=== PATIENT | female | born 1935 | race Caucasian/White ===

== ENCOUNTER 2021-05-17 10:41 | Inpatient (IN) | payer MEDICARE, OTHER ==
[~2021-05-17] VITALS: Ht 165.1 cm; Wt 70.2 kg
[~2021-05-17 10:41] MED LIST: ADULT LOW DOSE81 MG PO; ALPHA LIPOIC A100 MG PO; AMITRIPTYLINE H10 MG PO; ATORVASTATIN CA20 MG PO; CALTRATE 600 +1 EAC1 PO; CELEXA40 MG PO; CENTRUM SILVER1 EAC3 PO; CITALOPRAM HBR40 MG PO; CLOPIDOGREL75 MG PO; FOSAMAX70 MG PO; GLUCOPHAGE1000 MG PO; INTRINSI B12-F1 EACH PO; LISINOPRIL-HCT1 EACH PO; LISINOPRIL20 MG PO; METAMUCIL660 GM PO; MOTRIN800 MG PO; NORCO 5-325 TA1 EACH; NORCO 5-325 TA1 EACH PO; PLAVIX75 MG PO; PRECOSE25 MG PO; PRESERVISION A1 EAC1 PO; PRESERVISION A1 EACH PO; SENNA8.6 MG; TROSPIUM CHLORI60 MG PO; [UNRECOGNIZED DRUG - OTHER]; [UNRECOGNIZED DRUG - OTHER]; [UNRECOGNIZED DRUG - OTHER]; [UNRECOGNIZED DRUG - OTHER]
[2021-05-17] MEDS ORDERED: CARBIDOPA-LEVO1 EAC1 PO (11:14)
--- NOTE | 2021-05-17 13:40 | NUR ---
85 YEAR OLD FEMALE PATIENT ADMITTED TO CCU VIA STRETCHER UNDER DR. BARBER WITH DX OF AFIB RVR. PATIENT WAS SEEN IN DR. MACK OFFICE THIS AM AND WAS FOUND TO BE IN AFIB WITH RVR AND WAS SENT TO ED TO BE EVALUATED. SHE RECIEVED 20 MG IV CARDIZEM FOLLOWED BY CARDIZEM GTT. UPON ADMIT TO CCU PATIENT IS ALERT, ORIENTED AND COOPERATIVE. DENIES PAIN OR NAUSEA. UPON TRANSFER FROM [facility] TO [facility], DOES GET VERY SHORT OF BREATH. ADMISSION PROCESS STARTED.
--- NOTE | 2021-05-17 14:30 | NUR ---
CARDIZEM 30 MG PO GIVEN, CARDIZEM GTT REMAINS AT 7.5 MG/HR. PATIENT STATES SHE IS VERY TIRED.
--- NOTE | 2021-05-17 14:50 | NUR ---
SYSTEM SUPPORT TECHNICIAN HERE TO DO ECHO AT BEDSIDE.
[2021-05-17] MEDS ORDERED: GLIMEPIRIDE2 MG PO (14:54)
[2021-05-17] MEDS ORDERED: METFORMIN HCL500 M1 PO (14:55)
--- NOTE | 2021-05-17 15:30 | NUR ---
ECHO COMPLETE. PATIENT IS RESTING.
--- NOTE | 2021-05-17 15:56 | NUR ---
UP TO COMMODE TO VOID, 75 ML OF ROSE URINE.
--- NOTE | 2021-05-17 16:00 | NUR ---
ASSESSMENT DONE. NO CHANGES. VERY TIRED.
--- NOTE | 2021-05-17 18:17 | NUR ---
PATIENT DAUGHTER HERE TO PATIENT.
--- NOTE | 2021-05-17 18:30 | NUR ---
TOOK FEW BITES OF DINNER. SOMEWHAT ANXIOUS. CARDIZEM GTT REMAINS AT 7.5 ML/HR.
[2021-05-17] MEDS ORDERED: PRESERVISION A1 EAC3 PO (18:35)
[2021-05-17] MEDS ORDERED: STOOL SOFTENER100 MG PO (18:36)
[2021-05-17] MEDS ORDERED: VITAMIN C500 M1 PO (18:36)
--- NOTE | 2021-05-17 18:36 | NUR ---
MED REC COMPLETE
--- NOTE | 2021-05-17 19:06 | NUR ---
RESTING, REPORT TO NEXT SHIFT.
--- NOTE | 2021-05-17 19:46 | NUR ---
SHIFT REPORT RECEIVED FROM JOHAN PETERSON. PT CALLED TO USE BATHROOM, UP WITH 1-PA TO BSC. VOIDED AND HAD SMALL AMOUNT OF INCONTINENCE IN ATTEND, NEW ATTENDS AND PERICARE PROVIDED. PT BACK IN BED. CARDIZEM DRIP INFUSING AT 7.5ML/HR. PT PROVIDED WITH WARM BLANKET PER REQUEST, DENIES FURTHER NEEDS AT THIS TIME. CALL LIGHT WITHIN REACH.
--- NOTE | 2021-05-17 19:54 | EKG ---
[facility] [address] [facility] [address] [facility] [place] [address] Signed Atrial fibrillation with rapid ventricular response Low voltage QRS Cannot rule out Anterior infarct (cited on or before 02-JAN-2019) Abnormal ECG When compared with ECG of 02-JAN-2019 08:44, Atrial fibrillation has replaced Sinus rhythm Vent. rate has increased BY 53 BPM Nonspecific T wave abnormality now evident in Inferior leads Confirmed by YENIFER BARBER MD ([id number]) on 05/17/2021 7:54:32 PM Electronically Signed By: YENIFER BARBER MD 05/17/211953 PATIENT NAME: CARIE COLE Electrocardiogram DATE OF : 33 PHYSICIAN: YENIFER BARBER MD REPORT #: [id number] REPORT IS CONFIDENTIAL AND NOT TO BE RELEASED WITHOUT AUTHORIZATION
--- NOTE | 2021-05-17 20:42 | NUR ---
ASSESSMENT COMPLETED. PT IS ALERT/ORIENTED, DENIES PAIN. LUNGS CLEAR, DIM IN BASES, 2L O2 VIA NC IN PLACE. PT REPORTS SOB AT REST. HR IRREGULAR, CARDIZEM DRIP CONTINUES AT 7.5MG/HR, PO CARDIZEM GIVEN. BOWEL TONES ACTIVE, DENIES NAUSEA. SKIN GROSSLY INTACT WITHOUT EDEMA. IV SITE INTACT, PATENT, BLOOD RETURN PRESENT. PT PERFORMED OWN ORAL CARE. CB, NO SLIDING SCALE COVERAGE REQUIRED. PT DENIES FURTHER NEEDS, CALL LIGHT WITHIN REACH.
--- NOTE | 2021-05-17 21:07 | NUR ---
PT CALLED, FEELING NAUSEATED. EMESIS BAG PROVIDED AND PT HAD ~50ML BILE COLORED EMESIS. DR. BARBER CALLED AND ORDER RECEIVED FOR PRN ZOFRAN, GIVEN AT THIS TIME. PT RESTING ON LEFT SIDE AT THIS TIME.
--- NOTE | 2021-05-17 21:16 | NUR ---
OXYGEN TITRATED TO 4L FOR SPO2 86-88%.
--- NOTE | 2021-05-17 21:24 | NUR ---
TITRATED OXYGEN TO 6L FOR SPO2: 86%.
--- NOTE | 2021-05-17 21:40 | NUR ---
PT CALLED TO GET UP TO BATHROOM, VOIDED 100ML AND SMALL INCONTINENCE IN ATTENDS, NEW PAIR AND PERICARE PROVIDED. CARDIZEM DRIP TITRATED TO 10MG/HR FOR HR IN 110'S, UP TO 130 WITH ACTIVITY. OXYGEN REMAINS AT 6L, SPO2:89-92%.
--- NOTE | 2021-05-17 22:00 | NUR ---
PT HAD ANOTHER EPISODE OF EMESIS, 200ML BILE-COLORED. DR. BARBER NOTIFIED AND ORDER RECEIVED FOR ONE TIME DOSE OF PHENERGAN AND TO START IV FLUIDS. NEW 20G IV PLACED IN RIGHT FOREARM ON FIRST ATTEMPT, PT TOLERATED WELL. OXYGEN SWITCHED TO OXYMASK AND TITRATED TO 4L.
--- NOTE | 2021-05-17 22:32 | NUR ---
CARDIZEM DRIP TITRATED TO 12.5MG/HR FOR HR IN 110'S. PT APPEARS TO BE RESTING MORE COMFORTABLY. 4L O2 VIA OXYMASK IN PLACE.
--- NOTE | 2021-05-17 23:02 | NUR ---
CARDIZEM DRIP TITRATED TO 15MG/HR FOR HR 110-120. SPO2 INCREASED TO 5L OXYMASK FOR SPO2 86%.
--- NOTE | 2021-05-18 00:12 | NUR ---
ASSESSMENT COMPLETED. PT RESTING, WAKES EASILY WHEN SPOKEN TO. OXYGEN REMAINS AT 5L OXYMASK. PT DENIES PAIN OR NAUSEA. LUNGS REMAIN DIM IN BASES. HR IRREGULAR, RATE 110'S, TITRATED CARDIZEM DRIP TO 17.5MG/HR AND HUNG NEW BAG. IV SITES INTACT AND PATENT WITH BLOOD RETURN PRESENT IN BOTH. LOW GRADE TEMP OF 99.1, WILL MONITOR. PT DENIES NEEDS, CALL LIGHT WITHIN REACH.
--- NOTE | 2021-05-18 00:58 | NUR ---
CALL LIGHT ANSWERED, PT UP TO BSC WITH 1-PA TO VOID. PERICARE PROVIDED AND PT RETURNED TO BED. HR BETTER CONTROLLED WITH ACTIVITY AT THIS TIME, HR 110'S WITH ACTIVITY AND 95-105 AT REST. PT PROVIDED WITH FRESH WATER, DENIES FURTHER NEEDS AT THIS TIME.
--- NOTE | 2021-05-18 02:18 | NUR ---
PT SLEEPING, WOKE EASILY WHEN SPOKEN TO, SCHEDULED PO CARDIZEM GIVEN AND DRIP TITRATED TO 15MG/HR FOR HR 85-90'S. PT DENIES FURTHER NEEDS.
--- NOTE | 2021-05-18 04:05 | NUR ---
CALL LIGHT ANSWERED, PT UP TO BSC WITH 1-PA TO VOID. PERICARE AND NEW ATTENDS PROVIDED, PT BACK TO BED. ASSESSMENT COMPLETED. TEMP NOW 97.9. PT CONTINUES TO DENY PAIN OR NAUSEA. LUNGS REMAIN CLEAR/DIM WITH 5L O2 IN PLACE. CARDIZEM DRIP TITRATED TO 12.5MG/HR FOR HR 75-80'S. NO OTHER CHANGES FROM PREVIOUS ASSESSMENT. PT DENIES NEEDS, CALL LIGHT WITHIN REACH.
--- NOTE | 2021-05-18 04:30 | NUR ---
CARDIZEM DRIP TITRATED TO 10MG/HR FOR HR IN 70's.
--- NOTE | 2021-05-18 05:06 | NUR ---
CARDIZEM DRIP TITRATED TO 7.5MG/HR FOR HR IN 70'S. HYDROLOGY TEACHER IN ROOM AT THIS TIME FOR MORNING LABS.
--- NOTE | 2021-05-18 06:15 | NUR ---
CARDIZEM DRIP TITRATED TO 5MG/HR FOR HR 60-70'S.
--- NOTE | 2021-05-18 07:30 | NUR ---
REPORT RECIEVED BY DAY SHIFT RN, CARE OF PT ASSUMED AT THIS TIME. PT RESTING IN BED, DILTIAZEM DRIP INFUSING. CALL LIGHT WITHIN REACH. WILL CONTINUE TO MONITOR.
--- NOTE | 2021-05-18 08:30 | NUR ---
Pt assisted with 1PA to BSC to void. Pt reports mild SOB with exertion, HR into 110's, recovers with 3L via oxymask once back to bed, SPO2 94%. Pt has no further needs at this time, call light in reach.
--- NOTE | 2021-05-18 08:41 | NUR ---
ASSESSMENT COMPLETED. PT UP TO BATHROOM. HEART RATE IN THE 110S WITH EXERTION. PT FELT SHORT OF BREATH BUT RECOVERED WELL ONCE IN BED.
--- NOTE | 2021-05-18 08:55 | NUR ---
Scheduled medications administered, pt educated regarding medication dosages and indications. Daughter at bedside, engaged in care and attentive to patient. Pt able to swallow PO meds without difficulty. Has no other needs at this time, breakfast provided.
--- NOTE | 2021-05-18 10:50 | NUR ---
UPDATED DR BARBER ON PTS CONDITION. PLAN TO KEEP PT ON DILTIAZEM DRIP UNTIL 1400, THEN ATTEMPT TO TITRATE PT OFF. PT UPDATED ON PLAN OF CARE
--- NOTE | 2021-05-18 11:27 | NUR ---
1PA to BS to void, pt transfers to chair after this with 1PA. HR remains in 90's-108 with this exertion, SPO2 remains stable at 90-95%. Assessment complete. Pt orders lunch, agrees to sit in chair "for now" and educated regarding exercise tolerance, oxygenation, etc. Pt has no other needs, fresh water provided and new bag IVF hung.
--- NOTE | 2021-05-18 12:14 | NUR ---
CBG checked, 102, no insulin provided at this time. Pt remains sitting up in chair, lunch provided. Daughter at bedside engaged in care. Pt states no needs at this time, VSS, cardizem gtt continued at 5mg/hr.
--- NOTE | 2021-05-18 13:04 | NUR ---
PT AMBULATED TO THE BATHROOM. HEART RATE REMAINED WNL WITH AMBULATION. PT NOW BACK IN BED, RESTING HEART RATE 80-90 IN AN AFIB RHYTHM. SPO2 = 93% ON ROOM AIR. DILTIAZEM DRIP PLACED ON STANDBY AT THIS TIME. CALL LIGHT WITHIN REACH. WILL CONTINUE TO CLOSELY MONITOR HR AND SPO2.
--- NOTE | 2021-05-18 14:00 | NUR ---
Updated by Rn pt new diagnosed AFib. Will see tomorrow.
--- NOTE | 2021-05-18 14:30 | NUR ---
PT'S HEART RATE REMAINS RATE CONTROLLED AT 70-90 BPM, IN AN AFIB RHYTHM. PT ASLEEP, SPO2 =97% ON 3 L OM. CALL LIGHT WITHIN REACH. NO FURTHER NEEDS AT THIS TIME.
--- NOTE | 2021-05-18 16:45 | NUR ---
Pt ambulates to BR with 1PA, HR remains in 80's-90's with mild SOB with exertion. Pt back to chair, assessment complete. Shower cap and warm washcloths provided, assisted patient with hygiene. Daughter at bedside. Updated both patient and daughter on plan of care for imaging, both agreeable. Pt afebrile, VSS, A+O with no needs at this time.
--- NOTE | 2021-05-18 17:23 | NUR ---
PT TRANSPORTED VIA WHEELCHAIR TO CT AT THIS TIME. PT TRANSPORTED WITH SALES OPERATIONS AND RN. ON TOOL GRINDER SET UP OPERATOR GEAR AND 3 L OM FOR TRANSPORT.
--- NOTE | 2021-05-18 17:40 | NUR ---
Pt returns from CT with this RN, scheduled medications administered, CBG within parameters, no insulin provided. Dinner provided. pt resting in bed with no needs, on 3L O2 via oxymask, spo2 96%. No needs at this time. Call light in reach.
--- NOTE | 2021-05-18 18:05 | NUR ---
IV pump alarming, error resolved, pump cleared, pt has no needs.
--- NOTE | 2021-05-18 18:37 | NUR ---
PT AMBULATED TO BATHROOM. HEART RATE IN THE 110'S WITH EXERTION. PT NOW BACK IN BED, HR IN THE 90S. DAUGHTER REMAINS AT BEDSIDE. CALL LIGHT WITHIN REACH. NO FURTHER NEEDS AT THIS TIME.
--- NOTE | 2021-05-18 20:50 | NUR ---
SHIFT REPORT RECEIVED FROM JOHAN BONILLA. ASSESSMENT COMPLETED. PT IS ALERT/ORIENTED, DENIES PAIN. LUNGS CLEAR, DIM IN BASES, 3L VIA OXYMASK IN PLACE. HR IRREGULAR. BOWEL TONES ACTIVE, DENIES NAUSEA. SKIN GROSSLY INTACT WITHOUT EDEMA. IV SITES INTACT AND PATENT. PT AMBULATED TO BATHROOM TO VOID, HR 110'S WITH ACTIVITY. PT NOW BACK TO BED, HAS PERFORMED ORAL CARE. DENIES FURTHER NEEDS AT THIS TIME, CALL LIGHT WITHIN REACH.
--- NOTE | 2021-05-18 21:55 | NUR ---
CALL LIGHT ANSWERED, PT UP TO BATHROOM WITH 1-PA TO VOID, NEW ATTENDS PROVIDED FOR URINE INCONTINENCE. PT BACK TO BED, DENIES NEEDS. HR WITH ACTIVITY INCREASED TO 110-120, NOW 100-110 AT REST.
--- NOTE | 2021-05-18 23:11 | NUR ---
PATIENT UP TO VOID. OFFERED BSC, PATIENT PREFERS BATHROOM. ASSISTED INTO BATHROOM. PATIENT REQUIRES 1PA TO AMBULATE AND IS SLIGHTLY UNSTEADY. PATIENT VOIDED 150 MLS CLEAR URINE AND RETURNED TO BED. SLIGHTLY SOB WITH ACTIVITY AND O2 SATS 85% ON ROOM AIR. 3L OXY MASK IN PLACE. CALL LIGHT IN REACH.
--- NOTE | 2021-05-19 00:09 | NUR ---
PT SLEEPING, POSITIONED ON RIGHT SIDE. NO APPARENT DISTRESS. RESPIRATIONS EVEN AND UNLABORED, RR:22-24, 3L VIA OXYMASK IN PLACE. HR:95-115. WILL ALLOW FOR REST AND CONTINUE TO MONITOR.
--- NOTE | 2021-05-19 00:32 | NUR ---
RESTARTED CARDIZEM DRIP AT 5MG/HR FOR RESTING HR 120'S, INCREASING TO 130-140'S WITH ACTIVITY. PT UP TO BSC WITH 1-PA TO VOID, NEW ATTENDS AND PERICARE PROVIDED. LUNGS CLEAR, 3L O2 IN PLACE. NO OTHER CHANGES FROM PREVIOUS ASSESSMENT.
--- NOTE | 2021-05-19 00:48 | NUR ---
CARDIZEM DRIP TITRATED TO 10 MG/HR FOR HR 115. BP STABLE. PT RESTING IN BED, RESTING COMFORTABLY.
--- NOTE | 2021-05-19 01:04 | NUR ---
CARDIZEM DRIP TITRATED TO 15MG/HR FOR HR 115 AT REST.
--- NOTE | 2021-05-19 01:42 | NUR ---
CALL LIGHT ANSWERED, PT UP TO BSC WITH 1-PA TO VOID. PERICARE AND NEW ATTENDS PROVIDED. HR UP TO 130 WITH ACTIVITY, NOW 95-110 AT REST. CARDIZEM REMAINS AT 15MG/HR.
--- NOTE | 2021-05-19 02:50 | NUR ---
PT DESATURATED TO 85%, INCREASED OXYMASK TO 5L. HR:93-105 ON 15MG/HR OF CARDIZEM. PT SLEEPING, NO APPARENT DISTRESS.
--- NOTE | 2021-05-19 03:48 | NUR ---
CALL LIGHT ANSWERED, 1-PA TO C TO VOID. ASSESSMENT COMPLETED, UNCHANGED FROM PREVIOUS. CARDIZEM CONTINUES AT15 MG/HR. HR 90-100 AT REST, UP TO 110'S WITH ACTIVITY. INCREASED WORK OF BREATHING WITH ACTIVITY WELL. PT DENIES FURTHER NEEDS, CALL LIGHT WITHIN REACH.
--- NOTE | 2021-05-19 04:43 | NUR ---
CARDIZEM DRIP TITRATED TO 10MG/HR FOR HR 85-90'S.
--- NOTE | 2021-05-19 07:01 | NUR ---
CALL LIGHT ANSWERED, UP TO BSC WITH 1-PA TO VOID, PERICARE AND NEW ATTENDS PROVIDED. PT BACK TO BED, NO FURTHER REQUESTS.
--- NOTE | 2021-05-19 07:30 | NUR ---
PATIENT SHIFT REPORT RECIEVED FROM [facility]AIL [facility]ARMAC[facility] MERCHANDISER RN. PATIENT RESTING COMFORTABLY AT THIS TIME. FORTINO RN WILL BE TAKING CARE OF THIS PATIENT WITH THIS RN. CALL LIGHT IN REACH. WILL CONTINUE TO CLOSELY MONITOR.
--- NOTE | 2021-05-19 08:00 | NUR ---
PATIENT SHIFT REPORT RECIEVED. PATIENT REPORT GIVEN FROM JOHAN MORALEZ. PATIENT IS AWAKE IN BED. BREAKFAST ORDERED. PATIENT DENIES ANY NEEDS AT THIS TIME. CALL LIGHT WITHIN REACH.
--- NOTE | 2021-05-19 10:15 | NUR ---
PATIENT ASSESSMENT COMPLETE. MEDICATIONS GIVEN. CARDIZEM DRIP TITRATED FROM 10MG/HR TO 5MG/HR. PATIENT RATE CONTROLLED 90-100 BPM AT THIS TIME. PATIENT IS ON 5 LITERS OXY MASK AT THIS TIME. BREATHING DOES NOT APPEAR LABORED AND IS NOT IN ACUTE DISTRESS AT THIS TIME. LUNG SOUNDS ARE CLEAR. PATIENT STATES "I HAVE NOT HAD A BOWEL MOVEMENT SINCE SUNDAY" BOWEL SOUNDS ARE ACTIVE AND WILL CONTINUE TO MONITOR AT THIS TIME. PATIENT AND DAUGHTER ARE UPDATED WITH THE PLAN OF CARE AT THIS TIME. NO FURHTER QUESTIONS NOTED. CALL LIGHT WITHIN REACH AND NO FURTHER NEEDS AT THIS TIME.
--- NOTE | 2021-05-19 12:30 | NUR ---
PATIENT ASSESSMENT COMPLETE. PATIENT BLOOD SUGAR WAS 145. PATIENT REFUSED INSULIN STATING "145 IS PERFECTLY NORMAL FOR ME." PATIENT HEART RATE CONTROLLED 80-100'S. PATIENT IS REQUIRING FOUR LITERS OF OXYGEN AT THIS TIME. THE PATIENT DOES NOT APPEAR TO BE IN DISTRESS. PATIENT HAD A BOWEL MOVEMENT. PLAN OF CARE UPDATED AT THIS TIME. DAUGHTER PRESENT IN ROOM. PATIENT BACK TO BED RESTING AT THIS TIME. CALL LIGHT WITHIN REACH. NO FUTHER NEEDS AT THIS TIME.
--- NOTE | 2021-05-19 12:55 | NUR ---
PATIENTS DAUGHTER VOICED MULTIPLE CONCERNS WITH DRY CLEANER. THIS RN IN TO ANSWERE QUESTIONS. PATIENTS DAUGHTER APPEARS FRUSTRATED. THIS RN REVIEWED PLAN OF CARE AGAIN WITH PATIENT AND HER DAUGHTER. UPDATED TO WHY WE USE INSULIN IN THE HOSPITAL SETTING. PATIENTS DAUGHTER ALSO QUESTIONED WHY HER MEDICATION WASNT RUNNING IN HER IV. THIS RN UPDATED BOTH OF THEM AT 11 WHEN MEDICATION STOPPED AND EDUCATED THAT HER HR WAS CONTROLLED SO I WOULD STOP THE IV MEDICATION AT THIS TIME. PATIENT WAS GIVEN ORAL MEDICATION EARLIER THIS AM. PATIENTS DAUGHTER ALSO ASKED AGAIN ABOUT HER IV IN HER WRITST. SITE APPEARS TO LOOK BETTER, BUT IS STILL PAINFUL. EDUCATED PATIENT WE COULD REMOVE THE IV AND WILL START ANOTHER ONE IF NEEDED. PATIENT AND DAUGHTER ARE GOOD WITH THIS PLAN OF CARE. WILL CONTINUE TO CLOSELY MONITOR.
--- NOTE | 2021-05-19 13:15 | NUR ---
RN indicated pt had been difficult and suggested I check in. Pt was up and sitting in chair eating lunch. Daughter was in room. Pt and expressed satisfaction at care, and pt stated she was getting better every day. Said she had been sitting up for some time and would like to lie back down and "take a nap." Prayed for patience and strength as well as continued healing. Informed RN of pt desire to return to bed.
--- NOTE | 2021-05-19 13:45 | NUR ---
Pt resides at [facility] care in their duplexes. Pt resides alone. Daughter is present for my visit. Pt states she has been havig more difficulty walking from her Duplex to the main building for meals This is upsetting to daughter as she feels pt needs higher level of care and pt is not interested and plans on staying in her apartment. Pt has new onset of afib and is using 02 today. She uses a can to walk but no other DME. Daughter states she loaned pt a walker, pt states she does not use. Pt states she is ok financially and drives her own car. Pt plans on return to her apartment when discharged. We did discuss she may want to notify [facility] she is interested when a 2 bed room apartment comes open in the main building. Daughter states pt has declined when these have opened in the past.
--- NOTE | 2021-05-19 17:00 | NUR ---
PATIENT ASSESSMENT COMPLETE. PATIENT MEDICATIONS GIVEN. HEART RATE CONTROLED AT THIS TIME IN THE 80-100 BPM. PATIENT WAS TITRATED FROM 6 LITERS OF O2 TO 2 LITERS. PATIENT DOES NOT APPEAR TO BE IN DISTRESS AT THIS TIME. PATIENT HAS ORDERS TO GO TO THE MEDICAL SURGICAL FLOOR. THE PATIENT AND DAUGTHER ARE UPDATED ON THE PLAN OF CARE. NO QUESTIONS AT THIS TIME. CALL LIGHT WITHIN REACH NO FUTHER NEEDS.
--- NOTE | 2021-05-19 18:15 | NUR ---
REPORT GIVEN TO ELOISE PRADO. ALL QUESTIONS ANSWERED. UPDATED ON PLAN OF CARE. PATIENTS DAUGHTER AT THE BEDSIDE AND WAS ALSO UPDATED ON PLAN OF CARE. WILL CONTINUE TO CLOSELY MONITOR.
--- NOTE | 2021-05-19 18:41 | NUR ---
PATIENT WAS TRANSFERRED TO THE MEDICAL SURGICAL FLOOR. NURSE RECIEVING PATIENT AT BEDSIDE. UPDATED FAMILY AND PATIENT WITH PLAN OF CARE AT THIS TIME. NO QUESTIONS AT THIS TIME.
--- NOTE | 2021-05-19 18:42 | NUR ---
Report from JOHAN Alcantar. Patient arrives in bed with daughter at side and JOHAN Alcantar. Vital signs obtained. Repositioned in bed. Head of bed elevated and supper provided. Heartrate in low 100's at this time. Remains on O2 per NC. States she feels short of breath, but respirations appear unlabored at this time. Call light in reach, bed rails up X2.
--- NOTE | 2021-05-19 19:05 | NUR ---
SHIFT REPORT RECEIVED FROM ELOISE PRADO. PT RESTING IN BED, OXYMASK @ 2.5L. DAUGHTER IN ROOM.
--- NOTE | 2021-05-19 20:57 | NUR ---
UPDATED ON HR CONSISTENTLY 120-140'S. TO PUT IN NEW ORDERS. REPORTED TO FLYNN PRADO.
--- NOTE | 2021-05-19 21:37 | NUR ---
ASSESSMENT, VS AND I&O COMPLETED. AFIB HR RANGING UP TO 140, MD AWARE AND MEDS ORDERED AND PROVIDED. LUNGS CLEAR IN LOWER LOBES AND LUEFT UPPER LOBE, EXPIRATORY WHEEZING IN RIGHT UPPER LOBE. HEART TONES IRREGULAR. CMS INTACT IN UPPER EXTREMITIES AND CHRONIC NUMBNESS AND TINGLING IN FEET WITH GOOD MOTOR AND PULSES. ABD SOFT, NONTENDER, BOWEL TONES ACTIVE. SKIN WARM, DRY AND APPROPRIATE COLOR EXCEPT REDNESS AND SLIGHT SWELLING IN LEFT FOREARM WHERE A DCd IV WAS EARLIER TODAY. PT ON 2L NC. DAUGHTER IN ROOM. NO OTHER NEEDS AT THIS TIME. CALL LIGHT IN REACH.
--- NOTE | 2021-05-19 22:15 | NUR ---
IN TO ASSIST PT TO THE TOILET, 1PA WITH HANDS OUT TO STABLIZE PT, PT BACK TO BED, BED ALARM ON
--- NOTE | 2021-05-19 23:08 | NUR ---
PT TELE AFIB @ 130 WHILE LAYING IN BED. WHEN PT IS UP TO BATHROOM HER HR STAYS IN THE 160-170 RANGE AND RETURNS TO 120-130 AFTER SEVERAL MINUTES. VS COMPLETED. CALLED BY PHONE. STATES HE WILL PUT IN MED ORDERS.
--- NOTE | 2021-05-19 23:27 | NUR ---
SCHEDULED MED PROVIDED. OXYMASK @ 2L, SPO2 96%. NO OTHER NEEDS. CALL LIGHT IN REACH.
--- NOTE | 2021-05-19 23:50 | NUR ---
IN TO GET PT UP TO THE TOILET, VITALS DONE AT THIS TIME, NO FURTHER NEEDS
--- NOTE | 2021-05-20 00:32 | NUR ---
PT RESTING IN BED. TELE HR AFIB @ 105. NO OTHER NEEDS AT THIS TIME. CALL LIGHT IN REACH.
--- NOTE | 2021-05-20 00:50 | NUR ---
PT UP TO THE TOILET, PT DECLINING TO USE THE BSC AFTER OFFERING IT TO PT, EXPLAINING TO PT THE Renetta MARK RN INFORMED
--- NOTE | 2021-05-20 02:20 | NUR ---
IN TO ASSIST PT TO THE TOILET, AGAIN ENCORAGED PT TO TRY A BSC, PT PREFERS TO GO ALL THE WAY TO THE TOILET, PT BACK IN BED, FRESH ATTENDS IN PLACE, NO FURTHER NEEDS AT THIS TIME
--- NOTE | 2021-05-20 03:00 | NUR ---
IN TO GET VITALS, FRESH ICE WATER GIVEN, NO FURTHER NEEDS AT THIS TIME
--- NOTE | 2021-05-20 03:12 | NUR ---
SCHEDULED MED PROVIDED. TELE AFIB @ 111. ICE WATER PROVIDED. OXYMASK @ 2L. NO OTHER NEEDS. CALL LIGHT IN REACH.
--- NOTE | 2021-05-20 03:35 | NUR ---
IN TO GET PT UP TO THE TOILET, PT WAS INCONT OF BM, NEW ATTENDS ON, NEW LISET PAD, PT CLEANED UP AND BACK TO BED, NO FURTHER NEEDS AT THIS TIME
--- NOTE | 2021-05-20 03:45 | NUR ---
PT RESTING IN BED. TELE AFIB @ 114. NC @ 2L. CALL LIGHT IN REACH.
--- NOTE | 2021-05-20 05:00 | NUR ---
IN TO ASSIST PT TO THE TOILET, INCONT AT THIS TIME, NEW ATTENDS AND LISET PAD IN PLACE AT THIS TIME, PT BACK TO BED, PROVIDED A SNACK, NO FURTHER NEEDS AT THIS TIME
--- NOTE | 2021-05-20 05:25 | NUR ---
ASSESSMENT COMPLETED. GCS 15, A&O X4. LUNGS CLEAR IN UPPER LOBES AND DIMINISHED IN LOWER LOBES. ABD SOFT, NONTENDER, BOWEL TONES ACTIVE. IV CDI. CMS UNCHANGED. NO OTHER NEEDS. CALL LIGHT IN REACH.
--- NOTE | 2021-05-20 06:07 | NUR ---
VS COMPLETED. SCHEDULED MED PROVIDED. TELE AFIB @ 105. COFFEE PROVIDED. OXYMASK @ 2L. NO OTHER NEEDS. CALL LIGHT IN REACH.
--- NOTE | 2021-05-20 08:30 | NUR ---
Per jace with Dr. Díaz, he would like pt to ambulate today to check for toleration. Pt may be able to dc today or tomorrow.
--- NOTE | 2021-05-20 09:09 | NUR ---
IN ROOM FOR MEDICATION PASS. PT SITTING IN BED WITH DAUGHTER AT BEDSIDE. 2L NC IN PLACE. VITALS TAKEN ASND DOCUMENTED. SPO2 AT 94% ON 2L NC. TITRATED PT TO RA. SPO2 MAINTAINED FROM 90-95% ON RA AFTER 5 MINUTES ON RA. LEFT PT ON RA AND WILL CONTINUE TO MONITOR. DISCUSSED PLAN TO AMBULATE TODAY. PT AGREEABLE.
--- NOTE | 2021-05-20 10:29 | NUR ---
PT UP IN RECLINER, NO DISTRESS, I.S. AT CHAIR SIDE, PT DEMONSTRATED...EDUCATION GIVEN ON IMPORTANCE. DAUGHTER AT BEDSIDE. NO PAIN TO REPORT, LUNCH ORDERED.
--- NOTE | 2021-05-20 11:42 | NUR ---
PT UP AMBULATED IN MEI 50 FEET, ON ROOM AIR, MAINTAINED 92-94% OXYGEN SATURATIONS, HEART RATE MAINTAINED CONTROLLED AT 70'S AND 80'S BEATS PER MINUTE, HIGHEST RECORDED RATE WAS 91 BEATS PER MINUTE.
--- NOTE | 2021-05-20 12:34 | NUR ---
PT IN BED RESTING AFTER LUNCH, HER EYES OPEN UPON THIS RN ENTERING THE ROOM. LOOKED AT ME THEN, CLOSED HER EYES AGAIN, DAUGHTER UMA IS SITTIN BETY RECLINER IN ROOM. THIS RN WAS GIVEN MESSAGE TO CALL NOREEN, HOWEVER SHE IN NOT LISTED A PERSON OF CONTACT. GAVE MESSAGE TO ROYCE AND SHE SAID SHE WOULD CALL AND UPDATE HER.
--- NOTE | 2021-05-20 16:00 | NUR ---
NOtified pt has requested Dr. Olivo as her pcp, admitting notified and requested they change DrJennifer in chart.
--- NOTE | 2021-05-20 16:00 | NUR ---
PT UP TO BATHROOM FOR SHOWER WITH MILL ROLL OPERATOR ASSIST
--- NOTE | 2021-05-20 18:03 | NUR ---
PT HAS BEEN UP TO CHAIR FOR MEALS, HER DAUGHTER HAS BEEN IN TO VISIT MOST OF SHIFT, IS ESTABLISHING PCP. PT HAS NOT REPORTED ANY PAIN. PLAN. SHE CARDIAC MEDICATIONS ADJUSTED. PT WALKED IN HALLS WITH GOOD RATE CONTROL HR AT HIGHEST WAS 89 BMP. PT TOLERATED WELL. PT SHOWERED THIS AFTERNOON.
--- NOTE | 2021-05-20 19:05 | NUR ---
SHIFT REPORT RECEIVED FROM LEXA PRADO. PT UP IN CHAIR, ON RA. NO NEEDS AT THIS TIME. SAFETY EDUCATION PROVIDED CONCERNING USE OF CALL LIGHT. CALL LIGHT IN REACH.
--- NOTE | 2021-05-20 20:40 | NUR ---
ASSESSMENT, VS AND I&O COMPLETED. GCS 15, A&O X4. LUNGS CLEAR IN UPPER LOBES AND DIMINISHED IN LOWER LOBES. ABD SOFT, NONTENDER, BOWEL TONES ACTIVE. CMS INTACT EXCEPT NUMBNESS TO BOTTOM OF FEET, CHRONIC. IV WNL, CDI, WRAPPED WITH KERLIX, FLUSHED WELL. TEA PROVIDED. SCHEDULED MEDS PROVIDED. NO OTHER NEEDS. CALL LIGHT IN REACH.
--- NOTE | 2021-05-20 22:52 | NUR ---
PT CALLS TO USE BR. SBA FWW TO BR AND BACK TO BED. NO OTHER NEEDS. CALL LIGHT IN REACH.
--- NOTE | 2021-05-21 00:54 | NUR ---
PT CALLS TO USE BR. SBA FWW TO BR AND BACK TO BED. NO OTHER NEEDS AT THIS TIME. CALL LIGHT IN REACH, BED ALARM ON.
--- NOTE | 2021-05-21 02:15 | NUR ---
PT CALLS TO USE BR. FWW SBA TO BR AND BACK TO BED. TELE AFIB @ 90 DURING ACTIVITY. NO OTHER NEEDS. CALL LIGHT IN REACH.
--- NOTE | 2021-05-21 02:25 | NUR ---
TELE LEAD OFF, REPLACED. pt RESTING IN BED. NO REQUESTS. CALL LIGHT WITHIN REACH.
--- NOTE | 2021-05-21 04:00 | NUR ---
PT RESTING IN BED, EYES CLOSED. RR EVEN, UNLABORED. CALL LIGHT IN REACH, BED ALARM ON.
--- NOTE | 2021-05-21 06:11 | NUR ---
ASSESSMENT, VS AND I&O COMPLTED. PT UP TO BR AND BACK TO BED SBA, FWW. HR IS AFIB @ 93 WITH ACTIVITY. LUNGS CLEAR IN UPPER LOBES, DIMINISHED IN LOWER LOBES. PT DENIES SOB. IV WNL, CDI. COFFEE AND ICE WATER PROVIDED. NO OTHER NEEDS. CALL LIGHT IN REACH, BED ALARMS ON.
--- NOTE | 2021-05-21 08:35 | NUR ---
Scheduled medications, assessment complete. Pt transfers to bathroom with SBA and FWW. Heart rate irregular, pt states asymptomatic at this time. Back to bed and states no further needs. Daughter at bedside, attentive to patient. Pt updated on plan of care, agreeable at this time, call light in reach.
--- NOTE | 2021-05-21 10:47 | NUR ---
Patient got breakfast and ate some. Patient went to te bathroom and hand hygiene was encouraged. Vitals were done. Call light is in reach and there are no requests at this time.
--- NOTE | 2021-05-21 11:15 | NUR ---
Rounded on patient who is resting in bed with no needs at this time, daughter at bedside and attentive to patient. Pt on room air, A+O, no pain or SOB with rest. Call light in reach.
[2021-05-21] MEDS ORDERED: METOPROLOL SUC100 MG PO (11:57)
[2021-05-21] MEDS ORDERED: CARDIZEM LA360 MG PO (11:58)
[2021-05-21] MEDS ORDERED: WARFARIN SODIUM4 MG PO (11:58)
--- NOTE | 2021-05-21 13:30 | NUR ---
Warfarin administered per order. Discharge teaching provided in detail, medications and dosages, all questions answered and patient encouraged to call back with any questions, follow up appointments made and cards given to pt. Pt verbalizes understanding, has no needs at this time. Tele removed, IV removed WNL and site wrapped with coban.
--- NOTE | 2021-05-21 15:01 | NUR ---
Patient's INR at baseline = 1.12. She is starting on warfarin 4mg daily today. She [facility] appt [facility] 05/31/21 @ 6521. Extensive counseling by this pharmacist regarding warfarin, risks/benefits, the effect of diet on warfarin, etc. She was given the phone # to [facility] and was invited to call with any questions that may come up.
--- NOTE | 2021-05-21 15:10 | NUR ---
Pt discharged via wheelchair with all belongings in hand. Discharge teaching provided and all questions answered. VSS, A+O. IV site WNL. No further needs at this time.
[2021-06-07] MEDS ORDERED: GEMTESA75 MG PO ×2 (10:46→10:51)
== END 2021-05-21 15:10 | disposition home or self-care (01) | DRG 310 ==
LOC: ED 10:41 → CCU 10:43 → MS 05-19 18:30
PROVIDERS: ADMIT Internal Medicine; ATTEND Internal Medicine
DX: I48.91 Unspecified atrial fibrillation (principal); Z20.822 Contact with and (suspected) exposure to COVID-19; I10 Essential (primary) hypertension; E11.9 Type 2 diabetes mellitus without complications; E78.5 Hyperlipidemia, unspecified; I34.0 Nonrheumatic mitral (valve) insufficiency; G20 Parkinson's disease; M81.0 Age-related osteoporosis without current pathological fracture; F39 Unspecified mood [affective] disorder; Z88.1 Allergy status to other antibiotic agents; Z88.2 Allergy status to sulfonamides; Z86.73 Personal history of transient ischemic attack (TIA), and cerebral infarction without residual deficits; Z91.048 Other nonmedicinal substance allergy status; Z79.84 Long term (current) use of oral hypoglycemic drugs; Z79.02 Long term (current) use of antithrombotics/antiplatelets; Z79.899 Other long term (current) drug therapy; Z90.710 Acquired absence of both cervix and uterus; Z90.49 Acquired absence of other specified parts of digestive tract
CPT/HCPCS: 71045; 71260; 80048; 80053; 83735; 84443; 84484; 85025; 85610; 93005; 93010; 93306; J1650; J2405; J2550; J7121; Q9967; U0003

== ENCOUNTER 2023-05-12 09:48 | Inpatient (IN) | payer MEDICARE, OTHER ==
[~2023-05-12] VITALS: Ht 165.1 cm; Wt 75.6 kg
--- OUTSIDE RECORDS SUMMARY | ~2023-05-12 | XMS | Continuity of Care Document ---
Demographics + + + | Address | [address] | | | [place] [address] | + + + | Preferred Language | Unknown | + + + | Marital Status | | + + + | Jainism Affiliation | Unknown | + + + | Race | White | + + + | Ethnic Group | Not or | + + + Author + + + | Author | [facility] | + + + | Organization | [facility] | + + + | Address | [address] | | | [place] [address] | + + + | Phone | | + + + Care Team Providers + + + + | Care National Sales Manager Name | Role | Phone | + + + + Unavailable | Unavailable | + + + + Unavailable | Unavailable | + + + + Allergies and Intolerances + + + + + + | date | description | facility | reaction | severity | + + + + + + | (no date) | Bacitracin | [facility] | (no reaction) | (no severity) | [facility] | | | + + + + + + | (no date) | Mild | [facility] | (no reaction) | (no severity) | [facility] | | | + + + + + + | (no date) | Rash | [facility] | (no reaction) | (no severity) | [facility] | | | + + + + + + | (no date) | Bacitracin | [facility] | (no reaction[facility] | (no severity) | [facility] | | | + + + + + + | (no date) | Polymyxin b | [facility] | (no reaction) | (no severity) | [facility] | | | + + + + + + | (no date) | Vomiting | [facility] | (no reaction) | (no severity) | [facility] | | | + + + + + + | (no date) | Bacitracin | [facility] | (no reaction) | (no severity) | | [facility] | | | + + + + + + | (no date) | Polymyxin b | [facility] | (no reaction) | (no severity) | | [facility] | | | + + + + + + | (no date) | neomycin | [facility] | (no reaction) | (no severity) | | | sulfate | | | | + + + + + + | (no date) | Sulfa | [facility] | (no reaction) | (no severity) | | | (Sulfonamide | | | | | | Antibiotics) | | | | + + + + + + | (no date) | soap | [facility] | (no reaction) | (no severity) | + + + + + + | (no date) | bacitracin | [facility] | (no reaction) | (no severity) | + + + + + + | (no date) | polymyxin B | [facility] | (no reaction) | (no severity) | + + + + + + | (no date) | Polymyxin b | [facility] | (no reaction) | (no severity) | [facility] | | | + + + + + + Encounters No information. Functional Status No information. Immunizations No information. Medications + + + + | date | description | facility | + + + + | 2023-03-30 00:00 | [facility]oc[facility] | + + + + | 2023-03-30 00:00 | ALPHA LIPOIC ACID | [facility] | + + + + | 2023-03-30 00:00 | CALCIUM CARBONATE/VITAMIN | [facility] | | | D3 | | + + + + | 2023-03-30 00:00 | POTASSIUM CHLORIDE | [facility] | + + + + | 2023-03-30 00:00 | | [facility] | | | LISINOPRIL/HYDROCHLOROTHIAZ | | | | ALDO | | + + + + | 2023-03-30 00:00 | TORSEMIDE | [facility] | + + + + | 2023-03-30 00:00 | GLIMEPIRIDE | [facility] | + + + + | 2023-03-30 00:00 | FUROSEMIDE | [facility] | + + + + | 2023-03-30 00:00 | CITALOPRAM HYDROBROMIDE | [facility] | + + + + | 2023-03-30 00:00 | ASPIRIN | [facility] | + + + + | 2023-03-30 00:00 | CITALOPRAM HYDROBROMIDE | [facility] | + + + + | 2023-03-30 00:00 | CLOPIDOGREL BISULFATE | [facility] | + + + + | 2023-03-30 00:00 | SENNOSIDES | [facility] | + + + + | 2023-03-30 00:00 | SPIRONOLACTONE | [facility] | + + + + | 2023-03-30 00:00 | LISINOPRIL | [facility] | + + + + | 2023-03-30 00:00 | PIOGLITAZONE HCL | [facility] | + + + + | 2023-03-30 00:00 | ATORVASTATIN CALCIUM | [facility] | + + + + | 2023-03-30 00:00 | POTASSIUM CHLORIDE | [facility] | + + + + | 2023-03-30 00:00 | SITAGLIPTIN PHOSPHATE | [facility] | + + + + | 2023-03-30 00:00 | DILTIAZEM HCL | [facility] | + + + + | 2023-03-30 00:00 | DILTIAZEM HCL | [facility] | + + + + | 2023-03-30 00:00 | WARFARIN SODIUM | [facility] | + + + + | 2023-03-30 00:00 | TRAZODONE HCL | [facility] | + + + + | 2023-03-30 00:00 | AMITRIPTYLINE HCL | [facility] | + + + + | 2013-03-06 00:00 | HYDROCODONE | [facility] | | | BIT/ACETAMINOPHEN | | + + + + | 2013-03-13 00:00 | HYDROCODONE | [facility] | | | BIT/ACETAMINOPHEN | | + + + + | 2023-03-30 00:00 | HYDROCODONE | [facility] | | | BIT/ACETAMINOPHEN | | + + + + | 2023-03-30 00:00 | TROSPIUM CHLORIDE | [facility] | + + + + | 2023-03-30 00:00 | METFORMIN HCL | [facility] | + + + + | 2023-03-30 00:00 | POLYETHYLENE GLYCOL 3350 | [facility] | + + + + | 2023-03-30 00:00 | VIT A/VIT C/VIT | [facility] | | | E/ZINC/COPPER | | + + + + | 2023-03-30 00:00 | VIT A/VIT C/VIT | [facility] | | | E/ZINC/COPPER | | + + + + | 2023-03-30 00:00 | VIT B12/INTRINS FACT/FA | [facility] | | | CMB #2 | | + + + + Problems + + + + | date | description | facility | + + + + | 2019-01-06 00:00 | Overactive bladder | [facility] | + + + + | 2021-05-17 00:00 | Atrial fibrillation with | [facility] | | | rapid ventricular response | | + + + + | 2022-09-19 11:44 | TYPE 2 DIABETES MELLITUS | [facility] | | | WITHOUT COMPLICATIONS | | + + + + | 2022-09-19 11:44 | HYPERTENSIVE HEART DISEASE | [facility] | | | WITH HEART FAILURE | | + + + + | 2022-09-19 11:44 | UNSPECIFIED ATRIAL | [facility] | | | FIBRILLATION | | + + + + | 2022-09-19 11:44 | CHRONIC DIASTOLIC | [facility] | | | (CONGESTIVE) HEART FAILURE | | + + + + | 2022-09-19 11:44 | SHORTNESS OF BREATH | [facility] | + + + + | 2022-09-19 11:44 | SOLITARY PULMONARY NODULE | [facility] | + + + + | 2022-10-03 10:21 | UNSPECIFIED ATRIAL | [facility] | | | FIBRILLATION | | + + + + | 2022-10-03 10:21 | ENCOUNTER FOR THERAPEUTIC | [facility] | | | DRUG LEVEL MONITORING | | + + + + | 2022-10-03 10:21 | CASKET LINER (CURRENT) USE OF | [facility] | | | ANTICOAGULANTS | | + + + + | 2022-10-31 10:25 | UNSPECIFIED ATRIAL | [facility] | | | FIBRILLATION | | + + + + | 2022-10-31 10:25 | ENCOUNTER FOR THERAPEUTIC | [facility] | | | DRUG LEVEL MONITORING | | + + + + | 2022-10-31 10:25 | CORRECTION (CURRENT) USE OF | [facility] | | | ANTICOAGULANTS | | + + + + | 2022-10-31 12:24 | CHRONIC DIASTOLIC | [facility] | | | (CONGESTIVE) HEART ALBER | | + + + + | 2022-10-31 12:24 | SHORTNESS OF BREATH | [facility] | + + + + | 2022-12-12 10:35 | UNSPECIFIED ATRIAL | [facility] | | | FIBRILLATION | | + + + + | 2022-12-12 10:35 | ENCOUNTER FOR THERAPEUTIC | [facility] | | | DRUG LEVEL MONITORING | | + + + + | 2022-12-12 10:35 | CORRECTION (CURRENT) USE OF | [facility] | | | ANTICOAGULANTS | | + + + + | 2023-01-23 10:40 | TYPE 2 DIABETES MELLITUS | [facility] | | | WITHOUT COMPLICATIONS | | + + + + | 2023-01-23 10:40 | HYPERTENSIVE HEART DISEASE | [facility] | | | WITH HEART FAILURE | | + + + + | 2023-01-23 10:40 | 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 | | + + + + | 2023-01-23 10:40 | UNSPECIFIED ATRIAL | [facility] | | | FIBRILLATION | | + + + + | 2023-01-23 10:40 | HEART FAILURE, UNSPECIFIED | [facility] | | | | | + + + + | 2023-01-23 10:40 | ENCOUNTER FOR THERAPEUTIC | [facility] | | | DRUG LEVEL MONITORING | | + + + + | 2023-01-23 10:40 | CASKET LINER (CURRENT) USE OF | [facility] | | | ANTICOAGULANTS | | + + + + | 2023-03-06 10:30 | UNSPECIFIED ATRIAL | [facility] | | | FIBRILLATION | | + + + + | 2023-03-30 00:00 | Congestive heart failure | [facility] | + + + + | 2023-03-30 00:00 | Arthritis of left hip | [facility] | + + + + | 2023-03-30 00:00 | Lumbar radiculopathy | [facility] | + + + + | 2023-03-30 12:49 | TYPE 2 DIABETES MELLITUS | [facility] | | | WITHOUT COMPLICATIONS | | + + + + | 2023-03-30 12:49 | HYPERLIPIDEMIA, | [facility] | | | UNSPECIFIED | | + + + + | 2023-03-30 12:49 | HYPERTENSIVE HEART DISEASE | [facility] | | | WITH HEART FAILURE | | + + + + | 2023-03-30 12:49 | HEART FAILURE, UNSPECIFIED | [facility] | | | | | + + + + | 2023-03-30 12:49 | UNILATERAL PRIMARY | [facility] | | | OSTEOARTHRITIS, LEFT HIP | | + + + + | 2023-03-30 12:49 | RADICULOPATHY, LUMBAR | [facility] | | | REGION | | + + + + | 2023-03-30 12:49 | SHORTNESS OF BREATH | [facility] | + + + + | 2023-03-30 12:49 | CASKET LINER (CURRENT) USE OF | [facility] | | | ANTICOAGULANTS | | + + + + | 2023-03-30 12:49 | OTHER CORRECTION (CURRENT) | [facility] | | | DRUG THERAPY | | + + + + | 2023-03-30 12:49 | ALLERGY STATUS TO OTHER | [facility] | | | ANTIBIOTIC AGENTS STATUS | | + + + + | 2023-03-30 12:49 | ALLERGY STATUS TO | [facility] | | | SULFONAMIDES STATUS | | + + + + | 2023-03-30 12:49 | ALLERGY STATUS TO OTH | [facility] | | | DRUG/MEDS/BIOL SUBST STATUS | | | | | | + + + + | 2023-03-30 12:49 | OTHER NONMEDICINAL | [facility] | | | SUBSTANCE ALLERGY STATUS | | + + + + | 2023-04-13 13:00 | PULMONARY HYPERTENSION, | [facility] | | | UNSPECIFIED | | + + + + | 2023-04-13 13:00 | 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 | | + + + + | 2023-04-13 13:00 | 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 Results/Labs +--------+--------+ +---------+--------+---------+ | test | date | facility | value | unit | notes | +--------+--------+ +---------+--------+---------+ + + | Result panel 1 | + + + + + +-------+ + + | | 2023-03-30 | [facility] | 8.9 | (missing) | (missing) | | (unavailable | [facility] | | | + + + +-------+ + + + + | Result panel 2 | + + + + + +--------+ + + | | 2023-03-30 | [facility] | 62.8 | (missing) | (missing) | | (unavailable | [facility] | | | + + + +--------+ + + + + | Result panel 3 | + + + + + +--------+ + + | | 2023-03-30 | [facility] | 23.0 | (missing) | (missing) | | (unavailable | [facility] | | | + + + +--------+ + + + + | Result panel 4 | + + + + + +--------+ + + | | 2023-03-30 | [facility] | 12.4 | (missing) | (missing) | | (unavailable | [facility] | | | + + + +--------+ + + + + | Result panel 5 | + + + + + +-------+ + + | | 2023-03-30 | [facility] | 0.7 | (missing) | (missing) | | (unavailable | [facility] | | | + + + +-------+ + + + + | Result panel 6 | + + + + + +-------+ + + | | 2023-03-30 | [facility] | 1.1 | (missing) | (missing) | | (unavailable | [facility] | | | + + + +-------+ + + + + | Result panel 7 | + + + + + +--------+ + + | | 2023-03-30 | [facility] | 26.6 | (missing) | (missing) | | (unavailable | [facility] | | | + + + +--------+ + + + + | Result panel 8 | + + + + + +--------+ + + | | 2023-03-30 | [facility] | 2.55 | (missing) | (missing) | | (unavailable | [facility] | | | + + + +--------+ + + + + | Result panel 9 | + + + + + +--------+ + + | | 2023-03-30 | [facility] | 4.43 | (missing) | (missing) | | (unavailable | [facility] | | | + + + +--------+ + + + + | Result panel 10 | + + + + + +--------+ + + | | 2023-03-30 | [facility] | 13.2 | (missing) | (missing) | | (unavailable | [facility] | | | + + + +--------+ + + + + | Result panel 11 | + + + + + +-------+---------+ + | | 2023-03-30 | [facility] | 225 | mg/dL | (missing) | | (unavailable | [facility] | | | + + + +-------+---------+ + + + | Result panel 12 | + + + + + +------+---------+ + | | 2023-03-30 | [facility] | 41 | mg/dL | (missing) | | (unavailable | [facility] | | | + + + +------+---------+ + + + | Result panel 13 | + + + + + +--------+ + + | | 2023-03-30 | [facility] | 39.3 | (missing) | (missing) | | (unavailable | [facility] | | | + + + +--------+ + + + + | Result panel 14 | + + + + + +--------+---------+ + | | 2023-03-30 | [facility] | 1.59 | mg/dL | (missing) | | (unavailable | [facility] | | | + + + +--------+---------+ + + + | Result panel 15 | + + + + + +------+ + + | | 2023-03-30 | [facility] | 31 | (missing) | (missing) | | (unavailable | [facility] | | | + + + +------+ + + + + | Result panel 16 | + + + + + +---------+ + + | | 2023-03-30 | [facility] | 25.78 | (missing) | (missing) | | (unavailable | [facility] | | | + + + +---------+ + + + + | Result panel 17 | + + + + + +-------+ + + | | 2023-03-30 | [facility] | 138 | (missing) | (missing) | | (unavailable | [facility] | | | + + + +-------+ + + + + | Result panel 18 | + + + + + +-------+ + + | | 2023-03-30 | [facility] | 4.7 | (missing) | (missing) | | (unavailable | [facility] | | | + + + +-------+ + + + + | Result panel 19 | + + + + + +-------+ + + | | 2023-03-30 | [facility] | 102 | (missing) | (missing) | | (unavailable | [facility] | | | + + + +-------+ + + + + | Result panel 20 | + + + + + +------+ + + | | 2023-03-30 | [facility] | 28 | (missing) | (missing) | | (unavailable | [facility] | | | + + + +------+ + + + + | Result panel 21 | + + + + + +--------+ + + | | 2023-03-30 | [facility] | 12.7 | (missing) | (missing) | | (unavailable | [facility] | | | + + + +--------+ + + + + | Result panel 22 | + + + + + +-------+---------+ + | | 2023-03-30 | [facility] | 9.2 | mg/dL | (missing) | | (unavailable | [facility] | | | + + + +-------+---------+ + + + | Result panel 23 | + + + + + +-------+---------+ + | | 2023-03-30 | [facility] | 1.9 | mg/dL | (missing) | | (unavailable | [facility] | | | + + + +-------+---------+ + + + | Result panel 24 | + + + + + +--------+ + + | | 2023-03-30 | [facility] | 88.7 | (missing) | (missing) | | (unavailable | [facility] | | | + + + +--------+ + + + + | Result panel 25 | + + + + + +-------+ + + | | 2023-03-30 | [facility] | 6.5 | (missing) | (missing) | | (unavailable | [facility] | | | + + + +-------+ + + + + | Result panel 26 | + + + + + +-------+ + + | | 2023-03-30 | [facility] | 3.4 | (missing) | (missing) | | (unavailable | [facility] | | | + + + +-------+ + + + + | Result panel 27 | + + + + + +-------+ + + | | 2023-03-30 | [facility] | 3.1 | (missing) | (missing) | | (unavailable | [facility] | | | + + + +-------+ + + + + | Result panel 28 | + + + + + +--------+ + + | | 2023-03-30 | [facility] | 1.10 | (missing) | (missing) | | (unavailable | [facility] | | | + + + +--------+ + + + + | Result panel 29 | + + + + + +-------+ + + | | 2023-03-30 | [facility] | 1.0 | (missing) | (missing) | | (unavailable | [facility] | | | + + + +-------+ + + + + | Result panel 30 | + + + + + +------+ + + | | 2023-03-30 | [facility] | 17 | (missing) | (missing) | | (unavailable | [facility] | | | + + + +------+ + + + + | Result panel 31 | + + + + + +------+ + + | | 2023-03-30 | [facility] | 25 | (missing) | (missing) | | (unavailable | [facility] | | | + + + +------+ + + + + | Result panel 32 | + + + + + +------+ + + | | 2023-03-30 | [facility] | 60 | (missing) | (missing) | | (unavailable | [facility] | | | + + + +------+ + + + + | Result panel 33 | + + + + + +--------+ + + | | 2023-03-30 | [facility] | 11.7 | (missing) | (missing) | | (unavailable | [facility] | | | + + + +--------+ + + + + | Result panel 34 | + + + + + +--------+ + + | | 2023-03-30 | [facility] | 29.9 | (missing) | (missing) | | (unavailable | [facility] | | | + + + +--------+ + + + + | Result panel 35 | + + + + + +--------+ + + | | 2023-03-30 | [facility] | 33.7 | (missing) | (missing) | | (unavailable | [facility] | | | + + + +--------+ + + + + | Result panel 36 | + + + + + +--------+ + + | | 2023-03-30 | [facility] | 15.8 | (missing) | (missing) | | (unavailable | [facility] | | | + + + +--------+ + + + + | Result panel 37 | + + + + + +-------+ + + | | 2023-03-30 | [facility] | 272 | (missing) | (missing) | | (unavailable | [facility] | | | + + + +-------+ + + + + | Result panel 38 | + + + + + + + + + | | 2023-03-30 | [facility] | YELLOW | (missing) | (missing) | | (unavailable | [facility] | | | + + + + + + + + + | Result panel 39 | + + + + + +---------+ + + | | 2023-03-30 | [facility] | CLEAR | (missing) | (missing) | | (unavailable | [facility] | | | + + + +---------+ + + + + | Result panel 40 | + + + + + + + + + | | 2023-03-30 | [facility] | NEGATIVE | (missing) | (missing) | | (unavailable | [facility] | | | + + + + + + + + + | Result panel 41 | + + + + + + + + + | | 2023-03-30 | [facility] | NEGATIVE | (missing) | (missing) | | (unavailable | [facility] | | | + + + + + + + + + | Result panel 42 | + + + + + + + + + | | 2023-03-30 | [facility] | NEGATIVE | (missing) | (missing) | | (unavailable | [facility] | | | + + + + + + + + + | Result panel 43 | + + + + + +---------+ + + | | 2023-03-30 | [facility] | 1.010 | (missing) | (missing) | | (unavailable | [facility] | | | + + + +---------+ + + + + | Result panel 44 | + + + + + + + + + | | 2023-03-30 | [facility] | NEGATIVE | (missing) | (missing) | | (unavailable | [facility] | | | + + + + + + + + + | Result panel 45 | + + + + + +-------+ + + | | 2023-03-30 | [facility] | 7.0 | (missing) | (missing) | | (unavailable | [facility] | | | + + + +-------+ + + + + | Result panel 46 | + + + + + + + + + | | 2023-03-30 | [facility] | NEGATIVE | (missing) | (missing) | | (unavailable | [facility] | | | + + + + + + + + + | Result panel 47 | + + + + + + + + + | | 2023-03-30 | [facility] | NORMAL | (missing) | (missing) | | (unavailable | [facility] | | | + + + + + + + + + | Result panel 48 | + + + + + + + + + | | 2023-03-30 | [facility] | NEGATIVE | (missing) | (missing) | | (unavailable | [facility] | | | + + + + + + + + + | Result panel 49 | + + + + + + + + + | | 2023-03-30 | [facility] | NEGATIVE | (missing) | (missing) | | (unavailable | [facility] | | | + + + + + + + + + | Result panel 50 | + + + + + +-------+ + + | | 2023-03-30 | [facility] | 0-1 | (missing) | (missing) | | (unavailable | [facility] | | | + + + +-------+ + + + + | Result panel 51 | + + + + + +-------+ + + | | 2023-03-30 | [facility] | 2-3 | (missing) | (missing) | | (unavailable | [facility] | | | + + + +-------+ + + + + | Result panel 52 | + + + + + + + + + | | 2023-03-30 | [facility] | SQUAMOUS 1+ | (missing) | (missing) | | (unavailable | [facility] | | | + + + + + + + + + | Result panel 53 | + + + + + + + + + | | 2023-03-30 | [facility] | NONE SEEN | (missing) | (missing) | | (unavailable | [facility] | | | + + + + + + + + + | Result panel 54 | + + + + + + + + + | | 2023-03-30 | [facility] | NONE SEEN | (missing) | (missing) | | (unavailable | [facility] | | | + + + + + + + + + | Result panel 55 | + + + + + + + + + | | 2023-03-30 | [facility] | NONE SEEN | (missing) | (missing) | | (unavailable | [facility] | | | + + + + + + + + + | Result panel 56 | + + + + + +------+ + + | | 2023-03-30 | [facility] | No | (missing) | (missing) | | (unavailable | 15:13:07 | [facility] | | | | + + + +------+ + + + + | Result panel 57 | + + + + + + + + + | | 2023-03-30 | [facility] | CLEAN CATCH | (missing) | (missing) | | (unavailable | 15:13:07 | [facility] | | | | + + + + + + + + + | Result panel 58 | + + + + + +-------+ + + | | 2023-03-30 | [facility] | 168 | (missing) | (missing) | | (unavailable | 19:52:07 | [facility] | | | | + + + +-------+ + + Social History No information. Vital Signs + + + +---------+ | date | measurement | value | units | + + + +---------+ | 2023-03-06 00:00 | BP_diastolic | 64 | mmHg | + + + +---------+ | 2023-03-06 00:00 | BP_systolic | 163 | mmHg | + + + +---------+ | 2023-03-06 00:00 | heart_rate | 55 | /min | + + + +---------+ | 2023-03-30 00:00 | BMI | 25.6 | kg/m2 | + + + +---------+ | 2023-03-30 00:00 | BP_diastolic | 93 | mmHg | + + + +---------+ | 2023-03-30 00:00 | BP_systolic | 177 | mmHg | + + + +---------+ | 2023-03-30 00:00 | heart_rate | 68 | /min | + + + +---------+ | 2023-03-30 00:00 | height_metric | 165.1 | cm | + + + +---------+ | 2023-03-30 00:00 | height_standard | 65 | in | + + + +---------+ | 2023-03-30 00:00 | o2_saturation | 92 | % | + + + +---------+ | 2023-03-30 00:00 | respiration_rate | 18 | /min | + + + +---------+ | 2023-03-30 00:00 | temperature_metric | 36.67 | C | | | | | | + + + +---------+ | 2023-03-30 00:00 | | 98 | F | | | temperature_standar | | | | | d | | | + + + +---------+ | 2023-03-30 00:00 | weight_metric | 69.85 | kg | + + + +---------+ | 2023-03-30 00:00 | weight_standard | 153.99 | lb | + + + +---------+ | 2023-03-30 00:00 | weight_standard | 154 | lb | + + + +---------+"
--- OUTSIDE RECORDS SUMMARY | ~2023-05-12 | XMS | Continuity of Care Document ---
Demographics + + + | Address | [address] | | | [place] [address] | + + + | Preferred Language | Unknown | + + + | Marital Status | | + + + | Latter-Day Affiliation | Unknown | + + + | Race | White | + + + | Ethnic Group | Not or | + + + Author + + + | Author | [facility] | + + + | Organization | [facility] | + + + | Address | [address] | | | [place] [address] | + + + | Phone | | + + + Care Team Providers + + + + | Care Numerical Control Machine Machinist Name | Role | Phone | + [...] | 2023-03-30 00:00 | [facility]aine | [facility] | + + + + | 2023-03-30 00:00 | ALPHA LIPOIC ACID | [facility] | + + + + | 2023-03-30 00:00 | CALCIUM CARBONATE/VITAMIN | [facility] | | | D3 | | + + + + | 2023-03-30 00:00 | POTASSIUM CHLORIDE | [facility] | + + + + | 2023-03-30 00:00 | | [facility] | | | LISINOPRIL/HYDROCHLOROTHIAZ | | | | ALDO | | + + + + | 2023-03-30 00:00 | TORSEMIDE | [facility] | + + + + | 2023-03-30 00:00 | GLIMEPIRIDE | [facility] | + + + + | 2023-03-30 00:00 | FUROSEMIDE | [facility] | + + + + | 2023-03-30 00:00 | CITALOPRAM HYDROBROMIDE | [facility] | + + + + | 2023-03-30 00:00 | ASPIRIN | [facility] | + + + + | 2023-03-30 00:00 | CITALOPRAM HYDROBROMIDE | [facility] | + + + + | 2023-03-30 00:00 | CLOPIDOGREL BISULFATE | [facility] | + + + + | 2023-03-30 00:00 | SENNOSIDES | [facility] | + + + + | 2023-03-30 00:00 | SPIRONOLACTONE | [facility] | + + + + | 2023-03-30 00:00 | LISINOPRIL | [facility] | + + + + | 2023-03-30 00:00 | PIOGLITAZONE HCL | [facility] | + + + + | 2023-03-30 00:00 | ATORVASTATIN CALCIUM | [facility] | + + + + | 2023-03-30 00:00 | POTASSIUM CHLORIDE | [facility] | + + + + | 2023-03-30 00:00 | SITAGLIPTIN PHOSPHATE | [facility] | + + + + | 2023-03-30 00:00 | DILTIAZEM HCL | [facility] | + + + + | 2023-03-30 00:00 | DILTIAZEM HCL | [facility] | + + + + | 2023-03-30 00:00 | WARFARIN SODIUM | [facility] | + + + + | 2023-03-30 00:00 | TRAZODONE HCL | [facility] | + + + + | 2023-03-30 00:00 | AMITRIPTYLINE HCL | [facility] | + + + + | 2013-03-06 00:00 | HYDROCODONE | [facility] | | | BIT/ACETAMINOPHEN | | + + + + | 2013-03-13 00:00 | HYDROCODONE | [facility] | | | BIT/ACETAMINOPHEN | | + + + + | 2023-03-30 00:00 | HYDROCODONE | [facility] | | | BIT/ACETAMINOPHEN | | + + + + | 2023-03-30 00:00 | TROSPIUM CHLORIDE | [facility] | + + + + | 2023-03-30 00:00 | METFORMIN HCL | [facility] | + + + + | 2023-03-30 00:00 | POLYETHYLENE GLYCOL 3350 | [facility] | + + + + | 2023-03-30 00:00 | VIT A/VIT C/VIT | [facility] | | | E/ZINC/COPPER | | + + + + | 2023-03-30 00:00 | VIT A/VIT C/VIT | [facility] | | | E/ZINC/COPPER | | + + + + | 2023-03-30 00:00 | VIT B12/INTRINS FACT/FA | [facility] | | | CMB #2 | | + + + + Problems + + + + | date | description | facility | + + + + | 2019-01-06 00:00 | Overactive bladder | [facility] | + + + + | 2021-05-17 00:00 | Atrial fibrillation with | [facility] | | | rapid ventricular [...] + + + | 2022-10-03 10:21 | FILTER WORKER (CURRENT) USE OF | [facility] | | | ANTICOAGULANTS | | + + + + | 2022-10-31 10:25 | UNSPECIFIED ATRIAL | [facility] | | | FIBRILLATION | | + + + + | 2022-10-31 10:25 | ENCOUNTER FOR THERAPEUTIC | [facility] | | | DRUG LEVEL MONITORING | | + + + + | 2022-10-31 10:25 | PENITENTIARY (CURRENT) USE OF | [facility] | | [...] + + + | 2022-12-12 10:35 | PENITENTIARY (CURRENT) USE OF | [facility] | | [...] + + + | 2023-01-23 10:40 | FILTER WORKER (CURRENT) USE OF | [facility] | | | ANTICOAGULANTS | | + + + + | 2023-03-06 10:30 | UNSPECIFIED ATRIAL | [facility] | | | FIBRILLATION | | + + + + | 2023-03-30 00:00 | Congestive heart failure | [facility] | + + + + | 2023-03-30 00:00 | Arthritis of left hip | [facility] | + + + + | 2023-03-30 00:00 | Lumbar radiculopathy | [facility] | + + + + | [...] + + + | 2023-03-30 12:49 | FILTER WORKER (CURRENT) USE OF | [facility] | | | ANTICOAGULANTS | | + + + + | 2023-03-30 12:49 | OTHER PENITENTIARY (CURRENT) | [facility] | | | DRUG [...] + + + | 2023-04-17 10:28 | PENITENTIARY (CURRENT) USE OF | [facility] | | [...]
--- OUTSIDE RECORDS SUMMARY | ~2023-05-12 | XMS | Continuity of Care Document ---
Demographics + + + | Address | [address] | | | [place] [address] | + + + | Preferred Language | Unknown | + + + | Marital Status | | + + + | Islam Affiliation | Unknown | + + + | Race | White | + + + | Ethnic Group | Not or | + + + Author + + + | Author | [facility] | + + + | Organization | [facility] | + + + | Address | [address] | | | [place] [address] | + + + | Phone | | + + + Care Team Providers + + + + | Care Fisher Pot Name | Role | Phone | + [...] | 2023-03-30 00:00 | [facility]aine | [facility] | + + + + | 2023-03-30 00:00 | ALPHA LIPOIC ACID | [facility] | + + + + | 2023-03-30 00:00 | CALCIUM CARBONATE/VITAMIN | [facility] | | | D3 | | + + + + | 2023-03-30 00:00 | POTASSIUM CHLORIDE | [facility] | + + + + | 2023-03-30 00:00 | | [facility] | | | LISINOPRIL/HYDROCHLOROTHIAZ | | | | ALDO | | + + + + | 2023-03-30 00:00 | TORSEMIDE | [facility] | + + + + | 2023-03-30 00:00 | GLIMEPIRIDE | [facility] | + + + + | 2023-03-30 00:00 | FUROSEMIDE | [facility] | + + + + | 2023-03-30 00:00 | CITALOPRAM HYDROBROMIDE | [facility] | + + + + | 2023-03-30 00:00 | ASPIRIN | [facility] | + + + + | 2023-03-30 00:00 | CITALOPRAM HYDROBROMIDE | [facility] | + + + + | 2023-03-30 00:00 | CLOPIDOGREL BISULFATE | [facility] | + + + + | 2023-03-30 00:00 | SENNOSIDES | [facility] | + + + + | 2023-03-30 00:00 | SPIRONOLACTONE | [facility] | + + + + | 2023-03-30 00:00 | LISINOPRIL | [facility] | + + + + | 2023-03-30 00:00 | PIOGLITAZONE HCL | [facility] | + + + + | 2023-03-30 00:00 | ATORVASTATIN CALCIUM | [facility] | + + + + | 2023-03-30 00:00 | POTASSIUM CHLORIDE | [facility] | + + + + | 2023-03-30 00:00 | SITAGLIPTIN PHOSPHATE | [facility] | + + + + | 2023-03-30 00:00 | DILTIAZEM HCL | [facility] | + + + + | 2023-03-30 00:00 | DILTIAZEM HCL | [facility] | + + + + | 2023-03-30 00:00 | WARFARIN SODIUM | [facility] | + + + + | 2023-03-30 00:00 | TRAZODONE HCL | [facility] | + + + + | 2023-03-30 00:00 | AMITRIPTYLINE HCL | [facility] | + + + + | 2013-03-06 00:00 | HYDROCODONE | [facility] | | | BIT/ACETAMINOPHEN | | + + + + | 2013-03-13 00:00 | HYDROCODONE | [facility] | | | BIT/ACETAMINOPHEN | | + + + + | 2023-03-30 00:00 | HYDROCODONE | [facility] | | | BIT/ACETAMINOPHEN | | + + + + | 2023-03-30 00:00 | TROSPIUM CHLORIDE | [facility] | + + + + | 2023-03-30 00:00 | METFORMIN HCL | [facility] | + + + + | 2023-03-30 00:00 | POLYETHYLENE GLYCOL 3350 | [facility] | + + + + | 2023-03-30 00:00 | VIT A/VIT C/VIT | [facility] | | | E/ZINC/COPPER | | + + + + | 2023-03-30 00:00 | VIT A/VIT C/VIT | [facility] | | | E/ZINC/COPPER | | + + + + | 2023-03-30 00:00 | VIT B12/INTRINS FACT/FA | [facility] | | | CMB #2 | | + + + + Problems + + + + | date | description | facility | + + + + | 2019-01-06 00:00 | Overactive bladder | [facility] | + + + + | 2021-05-17 00:00 | Atrial fibrillation with | [facility] | | | rapid ventricular response | [...] + + + | 2022-10-03 10:21 | RESEARCH CLERK (CURRENT) USE OF | [facility] | | | ANTICOAGULANTS | | + + + + | 2022-10-31 10:25 | UNSPECIFIED ATRIAL | [facility] | | | FIBRILLATION | | + + + + | 2022-10-31 10:25 | ENCOUNTER FOR THERAPEUTIC | [facility] | | | DRUG LEVEL MONITORING | | + + + + | 2022-10-31 10:25 | ASSISTED (CURRENT) USE OF | [facility] | | [...] + + + | 2022-12-12 10:35 | ASSISTED (CURRENT) USE OF | [facility] | | [...] + + + | 2023-01-23 10:40 | RESEARCH CLERK (CURRENT) USE OF | [facility] | | | ANTICOAGULANTS | | + + + + | 2023-03-06 10:30 | UNSPECIFIED ATRIAL | [facility] | | | FIBRILLATION | | + + + + | 2023-03-30 00:00 | Congestive heart failure | [facility] | + + + + | 2023-03-30 00:00 | Arthritis of left hip | [facility] | + + + + | 2023-03-30 00:00 | Lumbar radiculopathy | [facility] | + + + + | 2023-03-30 [...] + + + | 2023-03-30 12:49 | RESEARCH CLERK (CURRENT) USE OF | [facility] | | | ANTICOAGULANTS | | + + + + | 2023-03-30 12:49 | OTHER ASSISTED (CURRENT) | [facility] | | | DRUG [...] + + + | 2023-04-17 10:28 | ASSISTED (CURRENT) USE OF | [facility] | | [...] (missing) | | (unavailable | 13:36:07 | [facility] | | | | | ) | [...] (missing) | | (unavailable | 13:36:07 | [facility] | | | | | ) | [...]
[~2023-05-12 09:48] MED LIST changes: +CARBIDOPA-LEVO1 EAC1 PO; +CARDIZEM LA360 MG PO; +CARTIA XT120 MG PO; +DICLOFENAC SOD100 G1 TOP; +DILTIAZEM 24HR120 MG PO; +FUROSEMIDE20 MG PO; +GEMTESA75 MG PO; +GLIMEPIRIDE2 MG PO; +JANUVIA100 MG PO; +JANUVIA50 MG PO; +K-TAB ER20 MEQ PO; +K-TAB10 MEQ PO; +KLOR-CON 1010 MEQ PO; +LASIX40 MG PO; +LIDODERM1 EACH TOP; +METFORMIN HCL500 M1 PO; +METOPROLOL SUC100 MG PO; +METOPROLOL SUCC50 MG PO; +MIRALAX17 GM PO; +PIOGLITAZONE HC15 MG PO; +PRESERVISION A1 EAC3 PO; +SPIRONOLACTONE25 MG PO; +STOOL SOFTENER100 MG PO; +SUDOGEST60 MG PO; +TORSEMIDE10 MG PO; +TRAZODONE HCL50 MG PO; +TRULICITY1.5 MG/0.5 SUB-Q; +VANCOCIN HCL125 MG PO; +VANCOMYCIN HCL125 MG PO; +VITAMIN C500 M1 PO; +VITAMIN D350 MCG PO; +WARFARIN SODIUM4 MG PO
[2023-05-12 10:18] LABS: BASOPHILS 0.8 % (0-2); EOSINOPHILS 0.7 % (0-6); HEMATOCRIT 38.4 % (35.0-50.0); LYMPHOCYTES 18.7 % (24-44); MCH 30.1 (27-36); MCV 88.6 fl (81-99); MONOCYTES 9.9 % (0-12); NEUTROPHILS 69.9 % (39-80); PLATELET COUNT 290 K/uL (140-440); RBC 4.33 M/ul (4.3-5.7); RDW 14.5 (10.5-15.0)
[2023-05-12 10:29] LABS: INR 2.74 (0.80-1.30); PROTIME 28.1 Sec (11.2-14.2)
[2023-05-12 10:35] LABS: ALBUMIN 3.3 g/dL (3.4-5.0); ALBUMIN/GLOBULIN RATIO 1.1 (1.1-2.4); ANION GAP 13.6 (7-21); BILIRUBIN, TOTAL 1.3 ng/dL (0.2-1.0); BUN/CREATININE RATIO 19.4 (6.0-28.6); CALCIUM 8.7 mg/dL (8.5-10.1); CREATININE, SERUM 1.34 mg/dL (0.55-1.02); POTASSIUM 4.6 mmol/L (3.5-5.1); PROTEIN, TOTAL 6.3 g/dL (6.4-8.2)
[2023-05-12 11:06] LABS: ABO A; RH POSITIVE
[2023-05-12 11:07] LABS: ANTIBODY SCREEN NEGATIVE
[2023-05-12 11:52] LABS: HEMATOCRIT 35.4 % (35.0-50.0); HEMOGLOBIN 11.5 g/dL (12.0-18.0); MCH 29.2 (27-36); MCHC 32.5 g/dl (30-36); RBC 3.93 M/ul (4.3-5.7); RDW 14.6 (10.5-15.0)
[2023-05-12 13:43] LABS: EOSINOPHILS 0.6 % (0-6); HEMATOCRIT 30.3 % (35.0-50.0); LYMPHOCYTES 19.2 % (24-44); MCH 29.9 (27-36); MCV 90.7 fl (81-99); MONOCYTES 12.2 % (0-12); PLATELET COUNT 250 K/uL (140-440); RBC 3.34 M/ul (4.3-5.7); RDW 14.7 (10.5-15.0)
[2023-05-12 13:48] LABS: ABO A; RH POSITIVE
[2023-05-12 14:59] VITALS: BP 130/90
--- NOTE | 2023-05-12 15:00 | NUR ---
ASSUMED CARE OF PT. SETTLED PATIENT IN BED. CHANGED PT WITH OTHER RN. LOTS OF BLOOD NOTED ON PAD WITH CLOTS. PT CURRENTLY RECEIVING BLOOD TRANSFUSION 1 OF 2.
[2023-05-12] MEDS ORDERED: TORSEMIDE10 MG PO (15:28)
[2023-05-12 15:45] VITALS: BP 129/58
[2023-05-12] MEDS ORDERED: MIRALAX17 GM PO (16:27)
--- NOTE | 2023-05-12 16:29 | NUR ---
MED REC COMPLETE
--- NOTE | 2023-05-12 16:44 | NUR ---
ADMISSION DONE ON PATIENT. PATIENTS DAUGHTER AT BEDSIDE. PT VERBALIZED SHE WAS WORRIED ABOUT HER BLOOD SUGAR. BEDSIDE FINGER STICK PERFORMED AND WAS 105. INCREASED TRANSFUSION RATE TO 150. CHANGED CHUCKS AGAIN AND WEIGHED. PT LOST ABOUT 450CC BLOOD FROM THE RECTUM SINCE ARRIVING TO THE UNIT. CALL LIGHT WITHIN REACH. NO FURTHER NEEDS VOICED.
[2023-05-12 17:28] VITALS: BP 116/50
--- NOTE | 2023-05-12 17:48 | NUR ---
BEGAN BAG 2 OF 2 BLOOD TRANSFUSION ON PATIENT. DAUGHTER AT BEDSIDE. BRIEFS AND GOWN CHANGED AGAIN. INCREASED TRANSFUSION RATE TO 150 AFTER STAYING WITH THE PATIENT FOR THE FIRST 15 MINUTES. NO FURTHER NEEDS VOICED. CALL LIGHT WITHIN REACH.
[2023-05-12 19:46] VITALS: BP 123/66
--- NOTE | 2023-05-12 19:48 | NUR ---
Assesed pt, changed pt brief with xlarge BM bright red mixed with stool. Blood transfusion still going. Vitals documented. Pt is alert, slightly anxious. Daughter at bedside. Will continue to monitor.
[2023-05-12 20:52] LABS: BASOPHILS 0.7 % (0-2); EOSINOPHILS 0.2 % (0-6); HEMATOCRIT 33.5 % (35.0-50.0); HEMOGLOBIN 11.3 g/dL (12.0-18.0); LYMPHOCYTES 18.3 % (24-44); MCH 30.7 (27-36); MCHC 33.8 g/dl (30-36); MCV 90.8 fl (81-99); NEUTROPHILS 71.8 % (39-80); PLATELET COUNT 211 K/uL (140-440); RBC 3.69 M/ul (4.3-5.7); RDW 14.5 (10.5-15.0)
[2023-05-12 21:01] LABS: INR 1.35 (0.80-1.30); PROTIME 16.2 Sec (11.2-14.2)
[2023-05-12 21:39] VITALS: BP 122/52
[2023-05-13] VITALS (10 sets, daily range): BP systolic 114–145; BP diastolic 40–56
--- NOTE | 2023-05-13 02:00 | NUR ---
Pt vitals done, pt briefs changed. Daughter at bedside.
[2023-05-13 05:33] LABS: RDW 14.1 (10.5-15.0)
[2023-05-13 05:35] LABS: BASOPHILS 1.2 % (0-2); EOSINOPHILS 0.8 % (0-6); HEMOGLOBIN 8.8 g/dL (12.0-18.0); LYMPHOCYTES 23.3 % (24-44); MCH 31.1 (27-36); MCV 91.3 fl (81-99); MONOCYTES 14.5 % (0-12); NEUTROPHILS 60.2 % (39-80); PLATELET COUNT 183 K/uL (140-440); RBC 2.85 M/ul (4.3-5.7)
[2023-05-13 05:52] LABS: ALBUMIN 2.3 g/dL (3.4-5.0); ALBUMIN/GLOBULIN RATIO 1.15 (1.1-2.4); ANION GAP 13.4 (7-21); BILIRUBIN, TOTAL 1.4 ng/dL (0.2-1.0); BUN/CREATININE RATIO 26.22 (6.0-28.6); CALCIUM 7.5 mg/dL (8.5-10.1); CREATININE, SERUM 1.22 mg/dL (0.55-1.02); MAGNESIUM 1.8 mg/dL (1.8-2.4); POTASSIUM 4.4 mmol/L (3.5-5.1); PROTEIN, TOTAL 4.3 g/dL (6.4-8.2)
--- NOTE | 2023-05-13 05:53 | NUR ---
Pt slept fair overnight. Pt have 4 XL bloody BMs ovenight. Vitals have been stable overnight. NPO since midnight. Fluids going at 125.
[2023-05-13 06:08] LABS: INR 1.28 (0.80-1.30); PROTIME 15.5 Sec (11.2-14.2)
--- NOTE | 2023-05-13 07:51 | NUR ---
REPORT RECEIVED FROM NIGHT RN ALL QUESTIONS ANSWERED, PT AWAKE IN BED. ANXIOUS REGARDING PLAN OF CARE, DISCUSSED PLAN OF CARE AND POTENTAIL SURGERY. PT VERBALIZED UNDERSTANDING, STATED ANXIETY REDUCED. DAUGHTER AT BEDSIDE. PT DENIES FURTHER NEEDS AT THIS TIME. CALL LIGHT IN REACH.
--- NOTE | 2023-05-13 09:47 | NUR ---
CARDIZEM AND METOPROLOL HELD PER DR RAMIREZ UNTIL AFTER PROCEDURE
--- NOTE | 2023-05-13 09:49 | NUR ---
MORNING ASSESSMENT COMPLETE. PT PREPPED AND EDUCATED FOR SURGICAL PROCEDURE, DAUGHTER AT BEDSIDE. PT BRIEF REMOVED, NO BLOOD OR STOOL NOTED. PT DENIES PAIN AT THIS TIME. DAUGHTER AT BEDSIDE.
--- NOTE | 2023-05-13 11:15 | NUR ---
05/13/23 1115 Jyothi Nevarez 1050- PT ARRIVES TO UNIT FROM OR VIA STRETCHER. PT HAS ORAL AIRWAY IN PLACE WITH 4L VIA NC, RESPIRATIONS ARE EVEN AND UNLABORED, NO SIGNS OF DISTRESS. PT IS UNRESPONSIVE AT THIS TIME. JUAN JOSE RODRIGUEZ AT BEDSIDE. 1054- PT REMAINS UNRESPONSIVE, ORAL AIRWAY IN PLACE W/4L VIA NC. PT RESPIRATIONS EVEN AND UNLABORED. 1058- PT SLIGHT AROUSE TO TACTILE STIMULI AT THIS TIME AND BURPING. 1101- NC REMOVED AND ON RA AT THIS TIME, O2 >90% VIA PULSE OX. 1102- PT RESPONSIVE TO VERBAL STIMULI AND FOLLOWING COMMANDS, OPENS MOUTH FOR ORAL AIRWAY REMOVAL AT THIS TIME. RESPIRATIONS EVEN AND UNLABORED, NO SIGNS OF DISTRESS. 1105- PT ASKING APPOPRIATE QUESTIONS AT THIS TIME BUT REMAINS DROWSY, AWAKE OFF AND ON. 1112- PT 1PA TO REPOSITION TO BACK AT THIS TIME. PT TAKING DEEP BREATHS AND MAKES EFFORT TO COUGH. PT REMAINS DROWSY AT THIS TIME.
--- NOTE | 2023-05-13 11:50 | NUR ---
PT BACK TO ROOM FROM SURGERY VIS STRETCHER, TRANSFERED TO BED VIA SHEET. REPORT RECEIVED FROM DIAMOND PRADO, ALL QUESTIONS ANSWERED. PT AWAKE, SLIGHTLY CONFUSED, ON 2LNC, O2 SAT 92%. PT BRIEF CHECKED, SCANT BLOOD BRIGHT RED BLOOD NOTED. VSS. PT PLACED BACK ON TELE, ON CPOX. PT DENIES PAIN OR NEEDS AT THIS TIME. CALL LIGHT IN REACH AND DAUGHTER AT BEDSIDE.
--- NOTE | 2023-05-13 13:07 | NUR ---
SPOKE WITH DR MARTÍNEZ REGARDING BP READINGS OF 133/40, 134/40, 138/44, 138/48. HR ON TEL 80-90 BPM. ORDERS FOR DILATIZEM AND METOPROLOL HELD AT THIS TIME D/T DIASTOLIC BP. WILL CONTINUE TO MONITOR BLOOD PRESSURE AND TELEMETRY.
--- NOTE | 2023-05-13 15:13 | NUR ---
[facility] PT TOLERATED WELL, DIZZINESS AT FIRST THAT SUBSIDED. PT VOIDED URINE WELL BM, DARK RED BLOOD NOTED WELL CLOTS IN BM. PT TRANSFERED BACK TO BED. DENIES PAIN OR NEEDS AT THIS TIME. PT TOLERATING CLEAR LIQUIDS. CALL LIGHT IN REACH. DAUGHTER AT BEDSIDE.
--- NOTE | 2023-05-13 16:16 | NUR ---
PT CALLED CONCERNED ABOUT THE FLASHING LIGHT ON HER BED. REASSURED HER THAT THERE IS NOTHING TO BE CONCERNED ABOUT.
--- NOTE | 2023-05-13 16:55 | NUR ---
PT ASSISTED FROM BED TO COMMODE, 2 PERSON ASSIST. TOLERATED WELL. SMALL BLOOD CLOT NOTED. PT BACK TO BED 2 PERSON ASSIST. PT DENIES PAIN OR NEEDS AT THIS TIME. CALL LIGHT IN REACH.
--- NOTE | 2023-05-13 19:39 | NUR ---
REPORT RECEIVED FROM DAY SHIFT RN. PT LYING IN BED. INCONTINENT OF LARGE AMOUNT RED CLOTTED BM. LISET CARE DONE. CLEAN ATTENDS IN PLACE. ASSISTED TO REPOSITION IN BED. ALERT AND ORIENTED. DENIES NEEDS. WHITE BOARD UPDATED. BED ALARM FOR SAFETY. CALL LIGHT IN REACH.
--- NOTE | 2023-05-13 19:49 | CONS ---
[facility] [address], [place] [address] Signed DATE OF CONSULTATION: 05/13/2023 CHIEF COMPLAINT: Rectal bleeding. HISTORY OF PRESENT ILLNESS: Carie is an 87-year-old female I have known for quite some time. Her brother had of colon cancer in his 70s. Carie has had multiple colonoscopies including 2014. She is known to have diverticulosis. She has a previous history of C diff colitis that was treated successfully. She now resides at [facility]. She has been on Coumadin because of a TIA she had back in 2019 along with her paroxysmal atrial fibrillation. Unfortunately, she has been in sinus rhythm on her most recent Cardiology note here in the hospital. However, she did notice some increasing dyspnea on exertion. She went to see the motor adjuster and she does have diastolic heart failure with some mild pulmonary hypertension, but the left ventricular ejection fraction is good around 60% at 65%. They have been adjusting her diuretics and some of her blood pressure medications. She complains of intermittent nausea, vomiting, diarrhea, and fatigue and has been describing some mild esophageal dysphagia, most likely present by esophagus and some fecal incontinence. She actually went to see her manager documentation, Dr. Ferrer several years ago. Not sure if there is any additional endoscopy performed. She comes in with several bloody bowel movements and clots. In the emergency room, her INR was reversed down from 2.74 to 1.28. She was admitted to the Internal Medicine Service overnight. Her initial hemoglobin was 13, is now 8.8. She did receive a couple units of packed red blood cells. She has a BUN of 32 and a creatinine of 1.2. Albumin is low at 2.3. I have been asked to see her as a general surgeon on-call for consideration of upper and lower endoscopy. She has been hemodynamically stable overnight and took the bowel prep. Her memory is not the best, but it appears that she has had good results, but there is still some blood in the fluid. Her daughter is at the bedside. PAST MEDICAL HISTORY: Dyspnea on exertion, paroxysmal atrial fibrillation, diastolic heart failure, hypertension, hyperlipidemia, TIA in 2019, diabetes with neuropathy, question of Parkinson's disease, poor memory, spinal stenosis, diverticulosis, osteoarthritis, macular degeneration, she is hard of hearing, C diff colitis, intermittent rectal bleeding, overactive bladder, depression, and anxiety. PAST SURGICAL HISTORY: Includes her cataract surgery, her last colonoscopy was 2014 with myself which showed some diverticulosis. She has had her gallbladder removed in 2001. She underwent A and P repair, hysterectomy and some type of bladder stimulator. SOCIAL HISTORY: She does not smoke or drink. Dr. Cuate Red is her motor adjuster. Dr. Alicia Huynh Electronically Signed By: DAO RAMIREZ MD 05/13/231948 PATIENT NAME: CARIE COLE CONSULTATION DATE OF : 33 REPORT #: [id number] PHYSICIAN: DAO RAMIREZ MD PCP: ALICIA HUYNH MD REPORT IS CONFIDENTIAL AND NOT TO BE RELEASED WITHOUT AUTHORIZATION [address] [address] Signed is her primary care provider. She uses a cane to ambulate. She is at [facility]. She prefers the [facility]. Shefali Harris is her daughter at [phone]. She tells me she would decline CPR and therefore wants to be a DNR/DNI, but would accept some reasonable procedures and measures. FAMILY HISTORY: Brother had colon cancer in his 70s. REVIEW OF SYSTEMS: She had 10 systems reviewed, nothing too much new since I have seen her last in reviewing her records and with talking to her daughter as well. ALLERGIES: Neosporin, sulfa, green soap, bacitracin, polymyxin B. MEDICATIONS: 1. Lasix 40 mg daily. 2. Spironolactone 12.5 mg daily. 3. Metoprolol 50 mg at bedtime. 4. Diltiazem 120 mg q.a.m. 5. Atorvastatin 20 mg daily. 6. Coumadin. 7. Calcium. 8. Celexa. 9. Glimepiride. 10. Metformin. 11. PreserVision. 12. Trazodone. 13. Januvia. PHYSICAL EXAMINATION: VITAL SIGNS: Blood pressure 139/56, heart rate 88, respiratory rate 18, temperature is 97.8. She is 93% on room air. She is 5 feet 5 inches and 75 kg with a body mass index of 27. GENERAL: Carie is an 87-year-old female lying supine in her hospital bed. Her daughter is at the bedside. Carie is in no acute distress. She is hard of hearing. Her memory is not the best. She uses pursed lips breathing intermittently. Although she denies any pulmonary issues. LUNGS: Clear to auscultation bilaterally. HEART: Regular rate and rhythm without murmurs. ABDOMEN: Soft, flat and nontender. Digital rectal exam is not repeated at this time. LABORATORY DATA: Electronically Signed By: DAO RAMIREZ MD 05/13/231948 PATIENT NAME: CARIE COLE CONSULTATION DATE OF : 33 REPORT #: [id number] PHYSICIAN: DAO RAMIREZ MD PCP: ALICIA HUYNH MD REPORT IS CONFIDENTIAL AND NOT TO BE RELEASED WITHOUT AUTHORIZATION [facility] [address], [place] [address] Signed Her white blood cell count is 9.6, hemoglobin was 13 is down to 8.8, platelets 183, BUN 32, creatinine 1.2. Echocardiogram in March of this year showed mild pulmonary hypertension with a left ventricular ejection fraction of 60% to 65% with mild diastolic dysfunction. EKG showed normal sinus rhythm and PACs. On her last Cardiology note, INR is down to 1.28 from 2.74, calcium is 7.5, albumin is 2.3. RADIOGRAPHIC STUDIES: None. ASSESSMENT AND PLAN: Carie is an 87-year-old female, who presents with yet another episode of a GI bleed and rectal bleeding. She has been on Coumadin for this TIA and has paroxysmal atrial fibrillation. Generally, she has been stable overnight as described above. I reviewed with Carie and her daughter in great detail the idea of upper and lower endoscopy. Carie thought that would be worthwhile as for as gathering information. However, she has made it clear to me she does not want to be resuscitated or intubated on the ventilator or any long-term care. She wants no heroic measures. She would accept limited interventions as we have discussed this morning. She has expressed understanding and would like to proceed with her endoscopy. We did review there is risk including, but not limited to gas bloating, crampy abdominal pain, bleeding, perforation requiring surgery, and missed diagnosis. She also understands the need for monitored anesthesia care. She has expressed understanding and would like to proceed. Dao Ramirez MD ALB/MODL /[id number] cc: MD Dao Kwong MD Dr. Jeffrey Lehr Copies: ALICIA HUYNH MD Electronically Signed By: DAO RAMIREZ MD 05/13/23 1949 PATIENT NAME: CARIE COLE CONSULTATION DATE OF : 33 REPORT #: [id number] PHYSICIAN: DAO RAMIREZ MD PCP: ALICIA HUYNH MD REPORT IS CONFIDENTIAL AND NOT TO BE RELEASED WITHOUT AUTHORIZATION [facility] [address] [place] [address] [place], [place] [address] Signed DAO RAMIREZ MD ~ Electronically Signed By: DAO RAMIREZ MD 05/13/23 1949 PATIENT NAME: CARIE COLE CONSULTATION DATE OF : 33 REPORT #: [id number] PHYSICIAN: DAO RAMIREZ MD PCP: ALICIA HUYNH MD REPORT IS CONFIDENTIAL AND NOT TO BE RELEASED WITHOUT AUTHORIZATION
--- NOTE | 2023-05-13 19:49 | OR ---
[facility] [address], [place] [address] Signed DATE OF OPERATION: 05/13/2023 SURGEON: Dao Ramirez MD PREOPERATIVE DIAGNOSES: 1. Recurrent rectal bleeding. 2. History of gastritis, proximal esophageal dysphagia, nausea and vomiting. 3. History of colonic polyps in 2004, internal and external hemorrhoids, diverticulosis, chronic diarrhea, chronic fecal incontinence with anal sphincter stimulator. 4. Brother with colon cancer in his 70s. POSTOPERATIVE DIAGNOSES: 1. Moderate gastroduodenitis with multiple shallow ulcerations. 2. Small hiatal hernia. 3. Mild Schatzki's ring/GE junction at 34 cm. 4. Moderate sigmoid diverticulosis. 5. Minimal to moderate internal hemorrhoids. 6. Decreased anal sphincter tone. PROCEDURE: 1. Esophagogastroduodenoscopy with biopsies of the duodenum x1. 2. Colonoscopy without biopsy. ESTIMATED BLOOD LOSS: None. INDICATIONS: Carie is an 87-year-old female I have known for many years. Her brother is known to have colon cancer in his 70s. She has undergone multiple upper and lower endoscopies. I had reviewed one upper and lower endoscopy in 2018 and a colonoscopy in 2015. She is known to have the above-mentioned issues. Once again, she is having some rectal bleeding. She has been maintained on Coumadin because she had a TIA back in 2019 and she has a history of paroxysmal atrial fibrillation. However, she has been in sinus rhythm on her most recent notes as well as today. She is now staying at [facility]. She uses a cane to ambulate. She keeps herself a DNR/DNI. She was having some trouble with rectal bleeding once again. She said this was a little different because of her blood clots in it. She came to the ER and was admitted to the Hospitalist Service. Initial hemoglobin was 13, is down to 8.8. She did get 2 units of packed red blood cells yesterday. BUN is 32 and in the INR was 2.74 from the Coumadin, but is down to 1.28 after being reversed. I had met with Carie and her daughter early Electronically Signed By: DAO RAMIREZ MD 05/13/231948 PATIENT NAME: CARIE COLE OPERATIVE REPORT DATE OF : 33 REPORT #: [id number] PHYSICIAN: DAO RAMIREZ MD PCP: ALICIA BENTLEY MD REPORT IS CONFIDENTIAL AND NOT TO BE RELEASED WITHOUT AUTHORIZATION [place] [id number] Signed this morning. We had a long discussion regarding the above findings. Carie made it very clear she wants to be a DNR/DNI. She said no growth measures. However, she would be willing to undergo upper and lower endoscopy for diagnostic purposes. I had reviewed with Carie and she has been to multiple endoscopies inch indeed she remembers me from before. We also had a long discussion regarding the Coumadin. She understands endoscopy quite well. There is risk including, but not limited to gas bloating, crampy abdominal pain, bleeding, perforation requiring surgery, and missed diagnosis. We also discussed the need for monitored anesthesia care given her advanced age and acute situation. She and her daughter expressed understanding and wished to proceed. PROCEDURE NOTE: Carie was taken into our endoscopy suite and placed in the supine semi-recumbent position. She was given monitored anesthesia care with propofol infusion per our nurse artillery officer. She did receive one dose of Ancef because of the anal stimulator. A bite block was utilized. The adult gastroscope was introduced and advanced under direct visualization of camera without difficulty. Once again we went through with probably as a mild Schatzki's ring at her GE junction at 34 cm from the incisors. She has a small hiatal hernia. Again, she has probably mild punctate hemorrhagic distal gastritis. Again, there was some edema and opening from the antrum into the pyloric channel a bit narrow and I was just able to get my camera through this area and out into the duodenum proper. She had multiple areas of duodenitis with overlying shallow ulcerations and I suspect at least one had represented the source of her bleeding. We took just a single biopsy of the duodenum for pathologic review. We did not repeat the CLOtest on this occasion. The pyloric bulb and antrum showed no ulcerations. Upon retroflexion of scope, one could see her small hiatal hernia. There was no gastric or esophageal varices. The scope was then withdrawn up through the area of the GE junction, which is compliant and probably has just a small Schatzki's ring. No Keating's mucosa, no distal esophagitis. The middle and upper esophagus were unremarkable. After this, the gas was suctioned out and the gastroscope removed. Carie tolerated the upper endoscopy quite well. Carie was rotated into the left lateral decubitus position. She was maintained on IV propofol per our nurse artillery officer. A digital rectal exam was performed and she has significantly decreased sphincter tone. I really could not palpate any anal stimulator. No masses. Very little in the way of external hemorrhoids. The adult colonoscope was introduced and advanced under direct visualization of the camera. We went through multiple areas of dark coffee-ground blood as well as some bright red blood and some clots. We made our way right up to the cecum, but could not quite get into the cecum directly. We tried multiple maneuvers without success. With the scope was then slowly withdrawn, we took pictures throughout for photodocumentation. We did our best to suction as much blood as we could. We never found an obvious bleeding source in the colon. We did see her diverticula. They were moderate in size, moderate in number, and Electronically Signed By: DAO RAMIREZ MD 05/13/23 1949 PATIENT NAME: CARIE COLE OPERATIVE REPORT DATE OF : 33 REPORT #: [id number] PHYSICIAN: DAO RAMIREZ MD PCP: ALICIA BENTLEY MD REPORT IS CONFIDENTIAL AND NOT TO BE RELEASED WITHOUT AUTHORIZATION [facility] [address], [place] [address] Signed scattered about in the sigmoid colon. In the rectum, the scope had been retroflexed and she does have minimal to moderate internal hemorrhoid columns as well. We irrigated the area and did not see any active bleeding from her hemorrhoids. After this, the gas was suctioned out and the colonoscope removed. Carie tolerated the lower endoscopy quite well. RECOMMENDATIONS: Carie is going to be returning to her room on the Internal Medicine Service. She should probably take some additional bowel prep today to help clean out the rest of her colon. More than likely this blood is all from her rather significant duodenitis. She really needs to talk with her primary care provider regarding Coumadin and her age and in her recurrent GI bleeds. Dao Ramirez MD ALB/MODL /[id number] cc: MD Alicia Pearson MD Andrew L Bower, MD Copies: BRITTON JEAN MD,ALICIA RAMIREZ,DAO Garcia MD ~ Electronically Signed By: DAO RAMIREZ MD 05/13/23 1949 PATIENT NAME: CARIE COLE OPERATIVE REPORT DATE OF : 33 REPORT #: [id number] PHYSICIAN: DAO RAMIREZ MD PCP: ALICIA BENTLEY MD REPORT IS CONFIDENTIAL AND NOT TO BE RELEASED WITHOUT AUTHORIZATION
--- NOTE | 2023-05-13 20:50 | NUR ---
CHANGED PATIENT'S INCONTINENT BM AND URINE. RED BLOODY/LIQUIDY MIXED AND CLOTS APPROXIMATELY 300ML IN THE BED BAUMAN PLUS MORE ON THE ATTENDS AND CHUX.
--- NOTE | 2023-05-13 21:05 | NUR ---
AT THE RN STATION. THIS RN VERIFIED WITH MD ABOUT REMOVING TELE. RECEIVED VERBAL ORDER TO LEAVE TELE OFF. THIS RN REPORTED CONCERN TO MD ABOUT PATIENT CONTINUE TO HAVE BLEEDING AND CLOTS AND NO PM LABS ORDERED. MD STATED " LONG HER VITALS ARE STABLE AND SHE IS NOT SYMPTOMATIC WE WILL WAIT UNTIL THE MORNING TO REPEAT LABS". ALL ORDERS VERIFIED USING THE REPEAT BACK METHOD. UPDATED ISIDRA PRIMARY RN ON CONVERSATION WITH .
--- NOTE | 2023-05-13 21:29 | NUR ---
EVENING ASSESSMENT COMPLETE. SCHEDULED MEDS ADMIN PER EMAR. PT REPORTS SOME BACK PAIN FROM "LAYING IN BED." DENIES PRN FOR PAIN WHEN OFFERED. ASSISTED TO REPOSITION. DENIES NAUSEA. CONTINUES WITH BOWEL PREP. DENIES FEELING LIGHTHEADED OR DIZZY. REPORTS SOB THAT IS CHRONIC. SpO2 LOW 90'S ON RA. VS AND I&O OBTAINED. PT DENIES QUESTIONS OR CONCERNS. CALL LIGHT IN REACH. BED ALARM FOR SAFETY.
--- NOTE | 2023-05-13 21:45 | NUR ---
CHANGED INCONTINENT ATTENDS WITH RED BLOODY/LIQUIDY BM AND URINE MIXED.
--- NOTE | 2023-05-13 22:44 | NUR ---
THIS DITTO MACHINE OPERATOR AND PRIMARY RN ISIDRA CHANGED PATIENT'S ATTENDS, GOWN, CHUX AND DRAW SHEET SOILED WITH BLOODY AND LIQUIDY MIXED BM AND URINE. WARM BLANKET PROVIDED.
[2023-05-14 00:58] VITALS: BP 124/46
--- NOTE | 2023-05-14 01:04 | NUR ---
PT RESTING IN BED ON RIGHT SIDE. SpO2 87%. HR 110. 2L/NC PLACED. SpO2 MID 90'S. BLOOD PRESSURE WNL. ASSISTED PT TO REPOSITION IN BED. ATTENDS DRY AT THIS TIME. CALL LIGHT IN REACH. BED ALARM FOR SAFETY.
--- NOTE | 2023-05-14 03:09 | NUR ---
PT RESTING IN BED ON RIGHT SIDE. RESPIRATIONS EVEN. SpO2 MID 90'S WITH 2L/NC IN PLACE. HR LOW 100'S.
--- NOTE | 2023-05-14 03:41 | NUR ---
IV PUMP ALARMING. NEW BAG IVF INFUSING WNL. PT DENIES NEEDS. REPORTS SHE IS RESTING WELL. ASSESSMENT UNCHANGED. BED ALARM IN PLACE.
[2023-05-14 05:30] LABS: BASOPHILS 0.8 % (0-2)
[2023-05-14 05:33] LABS: HEMATOCRIT 17.4 % (35.0-50.0); LYMPHOCYTES 18.1 % (24-44); MCH 31.3 (27-36); MCHC 34.3 g/dl (30-36); MCV 91.2 fl (81-99); MONOCYTES 14.8 % (0-12); NEUTROPHILS 64.3 % (39-80); PLATELET COUNT 156 K/uL (140-440); RBC 1.91 M/ul (4.3-5.7); RDW 14.2 (10.5-15.0)
[2023-05-14 05:38] LABS: INR 1.27 (0.80-1.30); PROTIME 15.4 Sec (11.2-14.2)
[2023-05-14 05:48] LABS: ALBUMIN 2.2 g/dL (3.4-5.0); ALBUMIN/GLOBULIN RATIO 1.22 (1.1-2.4); ANION GAP 11.1 (7-21); BILIRUBIN, TOTAL 0.8 ng/dL (0.2-1.0); BUN/CREATININE RATIO 21.42 (6.0-28.6); CALCIUM 7.6 mg/dL (8.5-10.1); CREATININE, SERUM 0.98 mg/dL (0.55-1.02); MAGNESIUM 1.6 mg/dL (1.8-2.4); PHOSPHORUS, INORGANIC 3.3 mg/dL (2.5-4.9); POTASSIUM 4.1 mmol/L (3.5-5.1)
--- NOTE | 2023-05-14 05:55 | NUR ---
UPDATED ON MORNING LABS. TO ADD ORDERS.
[2023-05-14 06:11] VITALS: BP 144/50
--- NOTE | 2023-05-14 06:35 | NUR ---
CHANGED ATTENDS SOAKED WITH URINE. NOTICED NO BLOOD. V/S AND I&O'S COMPLETED.
[2023-05-14 07:03] LABS: IS CROSSMATCH COMPATIBLE
--- NOTE | 2023-05-14 07:33 | NUR ---
PT RESTING EYES CLOSED AT TIME OF SHIFT REPORT, LEFT UNDISTURBED. AWAKE NOW WASHING HER FACE DENIES PAIN OR NEEDS OF. 2 PA ASSIST UP TO THE CHAIR PERSONAL CARE ITEMS PROVIDED CALL LIGHT IN REACH.
--- NOTE | 2023-05-14 09:47 | NUR ---
BLOOD INFUSING. 2PA TO BSC PT PASSES A LOT OF AMAURY BLOOD LISET CARE PROVIDED PT RETURNS TO RESTING IN BED STATES SHE IS A LOT MORE COMFORTABLE. DAUGHTER PRESENT IN THE ROOM. PT TOLERATES SMALL AMOUNT OF CLEAR LIQUIDS ONLY. DENIES WANT OF FURTHER OR DIFFERENT ITEMS
--- NOTE | 2023-05-14 10:30 | NUR ---
REPORTED BLOOD LOSS OBSERVATIONS TO DR HARRIS.
--- NOTE | 2023-05-14 11:06 | NUR ---
PT TO C/T VIA BED
--- NOTE | 2023-05-14 13:00 | NUR ---
PT IN BED. AWAKE AND ABLE TO ENGAGE IN CONVERSATION. EXERCISED MINISTRY OF PRESENCE WE TALKED OF SHARED CONNECTIONS. PT TALKED OF DYING IN MATTER OF FACT WAY. AWARE THAT MAY BE OUTCOME BUT OPTIMISITIC AND HOPEFUL THAT IT IS NOT. NO INDICATION OF DEPRESSION OR ANXIETY AROUND THIS ISSUE. CONSENTED TO PRAYER. PRAYED FOR ONGOING HEALING, GUIDANCE, AND PEACE. LEFT GUIDEPOST AND CONTACT CARD.
--- NOTE | 2023-05-14 13:28 | NUR ---
PT UNDERGARMENT CHANGED AND LISET CARE COMPLETED PER REQUEST. CONTINUES TO PASS COPIOUS AMOUNTS OF DARK RED BLOOD. PT RESTING IN BED LAST OF 2ND UNIT INFUSING
--- NOTE | 2023-05-14 14:08 | NUR ---
IN TO SEE PATIENT, PATIENT IN BED WITH DAUGHTER AT BEDSIDE. PATIENT RESIDES AT [place] IN A DUPLEX APARTMENT. PATIENT STATES SHE IS NORMALLY ABLE TO TAKE CARE OF HERSELF, BUT HAS BEEN HAVING DIFFICULTIES SINCE BECOMING SICK. PATIENT DOES AMBULATE AROUND HER HOME WITH A CANE OR WALKER. PATIENT DOES HAVE A SCOOTER THAT SHE USES TO GO TO THE DINNING ROOM FOR MEALS. PATIENT IS STILL DRIVING AND IS ABLE TO GET HER OWN GROCERIES IF NEEDED. PATIENT DAUGHTER JS STATES SHE [place]OWN AND CHECKS ON THE PATIENT SEVERAL TIMES A WEEK. WHEN DISCUSSING PATIENTS RETURN TO HOME SHE IS HESITANT SHE HAS NOT BEEN FEELING WELL. ADVISED THAT CASE MANAGEMENT LIKES TO DISCUSS DISCHARGE EARLY IN THE PATIENTS STAY, BUT THAT DOES NOT MEAN THAT SHE WILL BE READY FOR DISCHARGE SOON. PATIENT DAUGHTER ASKING IF PATIENT WOULD BE ELIGIBLE FOR ANY HOME HEALTH SERVICES. ADVISED THAT PATIENT MAY BE ELIGIBLE FOR HOME HEALTH PT PENDING FURTHER EVALUATION. PATIENT AND DAUGHTER JS WOULD LIKE TO DISCUSS THIS FURTHER ONCE THE PATIENT IS FEELING BETTER AND THE SOURCE OF HER BLEEDING IS DETERMINED.
[2023-05-14 14:11] VITALS: BP 139/46
[2023-05-14 14:27] LABS: BASOPHILS 0.5 % (0-2); HEMATOCRIT 25.5 % (35.0-50.0); HEMOGLOBIN 8.4 g/dL (12.0-18.0); MCHC 32.8 g/dl (30-36)
[2023-05-14 14:28] LABS: EOSINOPHILS 0.7 % (0-6); LYMPHOCYTES 12.7 % (24-44); MCH 29.6 (27-36); MCV 90.3 fl (81-99); MONOCYTES 11.5 % (0-12); NEUTROPHILS 74.6 % (39-80); PLATELET COUNT 143 K/uL (140-440); RBC 2.82 M/ul (4.3-5.7); RDW 14.5 (10.5-15.0)
--- NOTE | 2023-05-14 15:35 | NUR ---
PT RESTING IN BED DUAGHTER IS PRESENT. UNDERGARMENTS CHANGED PT IS PASSING LESS BLOOD MORE NORMAL LOOKING STOOL. DENIES DISCOMFORTS OR NEEDS AT THIS TIME.
--- NOTE | 2023-05-14 15:51 | EKG ---
[facility] [address] [facility] [place] [address] Signed Normal sinus rhythm ST depression in V4-6 Prolonged QT Abnormal ECG When compared with ECG of 30-MAR-2023 13:50, premature atrial complexes are no longer present Vent. rate has increased BY 36 BPM Nonspecific T wave abnormality now evident in Lateral leads Confirmed by GERARDO MARTÍNEZ MD ([id number]) on 05/14/2023 3:51:28 PM Electronically Signed By: GERARDO MARTÍNEZ 05/14/23 1551 PATIENT NAME: CARIE COLE Electrocardiogram DATE OF : 33 PHYSICIAN: GERARDO MARTÍNEZ REPORT #: [id number] REPORT IS CONFIDENTIAL AND NOT TO BE RELEASED WITHOUT AUTHORIZATION
[2023-05-14 18:37] VITALS: BP 120/65
--- NOTE | 2023-05-14 19:28 | NUR ---
REPORT RECEIVED FROM DAY SHIFT RN. PT LYING IN BED ALERT AND ORIENTED. DENIES NEEDS. WHITE BOARD UPDATED. CALL LIGHT IN REACH.
--- NOTE | 2023-05-14 19:55 | NUR ---
CALL LIGHT ANSWERED. 1PA WITH FWW TO GET pt BACK TO BED, SECOND RN IN ROOM TO PLACE DEPENDS ON BED, ASSIST WITH BOOSTING pt. ICE WATER PROVIDED. DAUGHTER IN ROOM. BED ALARM ON. CALL LIGHT IN REACH.
[2023-05-14 20:06] VITALS: BP 164/46
--- NOTE | 2023-05-14 20:19 | NUR ---
pt BACK IN BED FROM RESTROOM, SBA WITH FWW. ASSISTED TO REMOVE SHOES AND SOCKS. VS COMPLETE, STABLE. pt HAD FLUSHED VOID, VOID MISSED HAT REPORTS "ALMOST BACK TO NORMAL COLOR". RESTING IN BED WITH CALL LIGHT AND PERSONAL SUPPLIES IN REACH.
--- NOTE | 2023-05-14 20:30 | NUR ---
EVENING ASSESSMENT COMPLETE. SCHEDULED MEDS ADMIN PER EMAR. NIO PLACED FOR C/O BACK PAIN. WILL ADMIN WHEN AVAILABLE. PT PLACED ON OXYGEN AT 5L/NC FOR TRANSFER TO [facility]. SpO2 MID 80'S AT TIMES. WHILE IN BED OXYGEN TITRATED TO 3L/NC. SpO2 LOW 90'S. LUNGS DIM IN BASES. CPOX IN PLACE. ASSISTED PT TO REPOSITION FOR COMFORT. BED ALARM FOR SAFETY. PT DENIES QUESTIONS OR CONCERNS. CALL LIGHT IN REACH.
--- NOTE | 2023-05-14 22:00 | NUR ---
PATIENT CALLED STATING SHE NEEDS TO BE CHANGED. PATIENT HAD INCONTINENT OF URINE. NO BLOOD THIS TIME. PUREWICK IN PLACED PER PRIMARY RN.
--- NOTE | 2023-05-14 22:12 | NUR ---
CALL LIGHT ANSWERED. PT INCONTINENT OF URINE. REHANGER IN ROOM TO ASSIST WITH LISET CARE AND CHANGE ATTENDS. PUREWICK PLACED. WITH ACTIVITY SpO2 MID 80'S. OXYGEN TITRATED UP TO 5L/NC. AT REST OXYGEN BACK TO 3L/NC. SpO2 LOW 90'S. PT REPORTS SOB "IS NO WORSE THAN NORMAL." SIPS OF WATER PROVIDED. PT DENIES FURTHER NEEDS. CALL LIGHT IN REACH.
--- NOTE | 2023-05-15 00:05 | NUR ---
PT RESTING IN BED ON RIGHT SIDE. EYES CLOSED. RESPIRATIONS EVEN. SpO2 93% WITH 3L/NC. HR 60'S. BED ALARM IN PLACE. CALL LIGHT IN REACH.
--- NOTE | 2023-05-15 03:09 | NUR ---
PT RESTING IN BED WITH EYES CLOSED. RESPIRATIONS EVEN. PUREWICK PATENT WITH CLEAR YELLOW URINE. SpO2 93% WITH 3L/NC IN PLACE. HR 60'S.
--- NOTE | 2023-05-15 03:54 | NUR ---
CALL LIGHT ANSWERED. PT INCONTINENT OF SMALL AMOUNT LIQUID BM. SOME BLOOD AND SMALL CLOTS NOTED. STAFF ASSIST WITH LISET CARE. CLEAN PUREWICK PLACED AFTER LISET CARE. 2PA TO BOOST IN BED. PT REMAINS ON 3L/NC. PT REPORTS SOB "NO WORSE THAN NORMAL." FINE CRACKLES AUSCULTATED IN RLL. FRESH WATER PROVIDED. ASSISTED WITH ORAL CARE. NO FURTHER NEEDS. CALL LIGHT IN REACH.
[2023-05-15 05:24] VITALS: BP 167/56
--- NOTE | 2023-05-15 05:30 | NUR ---
VS AND I&O OBTAINED. PT INCONTINENT AROUND PUREWICK. LISET CARE DONE AND CLEAN ATTENDS IN PLACE. ASSISTED PT TO REPOSITION. NO FURTHER NEEDS. CALL LIGHT IN REACH.
[2023-05-15 05:46] LABS: EOSINOPHILS 2.8 % (0-6); HEMOGLOBIN 8.4 g/dL (12.0-18.0)
[2023-05-15 05:47] LABS: BASOPHILS 0.9 % (0-2); HEMATOCRIT 24.7 % (35.0-50.0); LYMPHOCYTES 13.6 % (24-44); MCH 30.6 (27-36); MCV 90.1 fl (81-99); MONOCYTES 13.1 % (0-12); NEUTROPHILS 69.6 % (39-80); PLATELET COUNT 164 K/uL (140-440); RBC 2.74 M/ul (4.3-5.7); RDW 14.8 (10.5-15.0)
[2023-05-15 05:57] LABS: ANION GAP 10.9 (7-21); BUN/CREATININE RATIO 12.5 (6.0-28.6); CALCIUM 7.8 mg/dL (8.5-10.1); CREATININE, SERUM 0.72 mg/dL (0.55-1.02); MAGNESIUM 1.8 mg/dL (1.8-2.4); PHOSPHORUS, INORGANIC 2.5 mg/dL (2.5-4.9); POTASSIUM 3.9 mmol/L (3.5-5.1)
[2023-05-15 06:01] LABS: INR 1.25 (0.80-1.30); PROTIME 15.1 Sec (11.2-14.2)
--- NOTE | 2023-05-15 08:03 | NUR ---
PT AWAKE RESTING IN BED AT TIME OF SHIFT REPORT. UP TO THE TOILET NOW, UNDERGARMENT HAS AMAURY RED BLOOD MEDIUM AMOUNT. PT PASSES 300 ML'S OF DARK RED FLUID INTO HAT. AMBULATING BETTER THAN YESTERDAY BUT STILL VERY WEAK REQUIRING 2 PA FOR SAFETY. PERSONAL CARE ITEMS PROVIDED PT DOING SELF CARE. FRESH H20 AND CALL LIGHT IN REACH. PT DENIES DISCOMFORTS OR NEEDS OF.
--- NOTE | 2023-05-15 08:30 | NUR ---
PT SITTING UP IN BED FOR BREAKFAST. NO NEEDS AT THIS TIME. CALL LIGHT IN REACH.
[2023-05-15 09:37] VITALS: BP 135/42
--- NOTE | 2023-05-15 10:01 | NUR ---
PT TOLERATES FULL LIQUID DIET FOR MORNING MEAL EATS 100% STATING SHE WAS HUNGRY. NO NAUSEA PAIN OR OTHER DISCOMFORTS FROM MEAL. RESTING IN BED AT THIS TIME, REFUSED OFFER OF UP TO THE CHAIR DUE TO FEELING WEAK. PT HAS COMPLETED SELF CARES INDEPENDANTLY. DAUGHTER IS PRESENT IN THE ROOM PT VISITING ACTIVELY, DENIES NEEDS OF ANY ITEMS.
--- NOTE | 2023-05-15 10:29 | NUR ---
PT IN BED. DAUGHTER IN ROOM TALKING ON PHONE. WAIVED ME IN TO TALK WITH PATIENT. PATIENT IN GOOD SPIRITS. SAYS BLEEDING IS "ONLY A LITTLE" AND THAT SHE WOUDL PREFER THAT IT BE COMPLETELY RESOLVED BEFORE SHE LEAVES. EXERCISED MINISTRY OF PRESENCE PATIENT TALKED OF HER WORRIES. OVERALL IN GOOD SPIRITS. CONSENTED TO PRAYER. PRAYED FOR ONGOING HEALING AND CONTINUED BLESSING.
--- NOTE | 2023-05-15 11:08 | NUR ---
PT RESTING IN BED DAUGHTER IS PRESENT IN THE ROOM. PT DENIES NEEDS OR DISCOMFORTS.
--- NOTE | 2023-05-15 11:59 | NUR ---
SPOKE TO PATIENT ABOUT THE DISCHARGE PLAN. PATIENT WOULD LIKE HOME HEALTH ORDERED ON DISCHARGE. DAUGHTER IS AT BEDSIDE AND AGREES WITH HER MOTHER.
--- NOTE | 2023-05-15 12:03 | NUR ---
PT HAS BEEN MAINTAINING SATS IN THE LOW 90'S ON RA SINCE THE START OF DAY SHIFT. DIPS NOW INTO MID 80'S ON RA (TESTED ON BOTH SAT METERS) 02 REPLACED AT 1 LPM NC.
[2023-05-15 13:42] VITALS: BP 120/31
--- NOTE | 2023-05-15 15:24 | NUR ---
PT RESTING IN BED DAUGHTER IS AT BEDSIDE. DAUGHTER AGREES PT APPEARS TO BE A LITTLE CONFUSED FROM BASE LINE. SHE IS TALKING ABOUT CONTROLS SHE BROUGHT WITH HER AND HOW SHE HAD BEEN USING THEM FOR SOMETHING SHE CAN'T REMEMBER. WE WERE UNABLE TO CLARIFY A SENSIBLE MEANING TO THIS. SHE KNOWS THE DATE AND IS MOSTLY ORIENTED BUT JUST A BIT DIFFERENT FROM YESTERDAY. SHE HAS PASSED AMAURY BLOOD 3X THIS SHIFT. UPDATE REPORTED TO DR HARRIS CBC ORDERED
[2023-05-15 15:45] LABS: BASOPHILS 0.6 % (0-2); EOSINOPHILS 0.9 % (0-6); HEMATOCRIT 22.7 % (35.0-50.0); HEMOGLOBIN 7.5 g/dL (12.0-18.0); LYMPHOCYTES 12.2 % (24-44); MCH 29.8 (27-36); MCV 90.2 fl (81-99); MONOCYTES 14.1 % (0-12); NEUTROPHILS 72.2 % (39-80); PLATELET COUNT 157 K/uL (140-440); RBC 2.51 M/ul (4.3-5.7); RDW 14.7 (10.5-15.0)
--- NOTE | 2023-05-15 16:30 | NUR ---
Patient's daughter states she is concerned about her being too weak to return to [place]. States she would like to know more information regarding SNF facilities in the area for potential placement at [place] for strengthening. List of local SNF facilities provided to daughter per request. Instructed to notify staff with questions. Verbalizes understanding.
--- NOTE | 2023-05-15 16:50 | NUR ---
Checked Pt's blood sugar, reported to RN and recorded. No other needs expressed by Pt.
--- NOTE | 2023-05-15 17:43 | NUR ---
PT UP TO THE CHAIR DOES WELL WITH TRANSFER. DR HARRIS IN TO SEE HER AND DAUGHTER DISCUSSES PLAN GOING FORWARD ALL QUESTIONS ANSWERED. PT EATING EVENING MEAL CALL LIGHT IN LAP
[2023-05-15 18:26] LABS: ABO A; ANTIBODY SCREEN NEGATIVE; IS CROSSMATCH COMPATIBLE; RH POSITIVE
--- NOTE | 2023-05-15 18:53 | NUR ---
BP 122/[address] MARTÍNEZ. BLOOD TRANSFUSION STARTED PER ORDERS. PT RESTING IN BED AGREES SHE IS COMFORTABLE DENIES NEEDS OF. PT VERBALIZES S/S TO REPORT OF POSSIBLE REACTION. DAUGHTER REMAINS IN THE ROOM
--- NOTE | 2023-05-15 19:31 | NUR ---
REPORT RECEIVED FROM DAY SHIFT RN. PT LYING IN BED ALERT AND ORIENTED. BLOOD TRANSFUSING WNL. PT DENIES NEEDS AT THIS TIME. DAUGHTER AT BEDSIDE. WHITE BOARD UPDATED. CALL LIGHT IN REACH.
--- NOTE | 2023-05-15 21:02 | NUR ---
IV PUMP ALARMING, ADDITIONAL VOLUME ADDED TO BLOOD PRODUCTS. INFUSING WNL. CALL LIGHT IN REACH. pt RESTING IN BED, NO DISTRESS NOTED. SPO2 WNL ON CPOX.
[2023-05-15 21:59] VITALS: BP 167/54
--- NOTE | 2023-05-15 22:16 | NUR ---
BLOOD TRANSFUSION COMPLETE. PT DA WELL. EVENING ASSESSMENT COMPLETE. SCHEDULED MEDS ADMIN PER EMAR. PT REPORTS BACK PAIN 10/10. PRN FOR PAIN ADMIN PER EMAR. OXYGEN 2L/NC IN PLACE. SpO2 MID 90'S. CRACKLES AUSCULTATED IN BILAT LUNG BASES. PT DENIES WORSENING SOB. RESPIRATIONS NON LABORED. CLEAN PUREWICK PLACED AFTER LISET CARE. SCANT AMOUNT BRIGHT RED BLOOD NOTED IN PT ATTENDS. 2PA TO REPOSITION IN BED. WARM BLANKET PROVIDED. NO FURTHER NEEDS AT THIS TIME. CALL LIGHT IN REACH.
--- NOTE | 2023-05-15 22:44 | NUR ---
FFP STARTED AT 2236. VS STABLE, pt ON 2L OXYGEN BY NC. UNIT VERIFIED WITH PRIMARY RN. IV SITE FLUSHED WNL PRIOR TO ADMINISTRATION. EDUCATION PROVIDED. RECRUITING [employer] REMAINS IN ROOM DURING ADMINISTRATION PER POLICY. pt RESTING IN BED WITH EYES CLOSED, BREATHING UNLABORED.
--- NOTE | 2023-05-15 22:54 | NUR ---
VS COMPLETE, STABLE. NO ADVERSE REACTION TO BLOOD PRODUCT NOTED. pt RESTING IN BED WITH EYES CLOSED. 2L OXYGEN BY NC REMAINS IN PLACE. FFP RATE INCREASED TO 200 ML/HR, INFUSING WNL. CALL LIGHT WITHIN REACH.
--- NOTE | 2023-05-15 23:46 | NUR ---
PT AWAKE IN BED. ASSISTED TO REPOSITION FOR COMFORT. SIPS OF WATER PROVIDED. FFP INFUSING WNL. PT DA WELL. NO FURTHER NEEDS.
--- NOTE | 2023-05-16 00:06 | NUR ---
FFP TRANSFUSION COMPLETE. NO REACTION NOTED. PT DA WELL. VS WNL. PT RESTING ON RIGHT SIDE. NO NEEDS AT THIS TIME.
--- NOTE | 2023-05-16 04:53 | NUR ---
MEDITECH DOWN TIME. SEE PAPER CHART.
[2023-05-16 05:32] VITALS: BP 153/49
[2023-05-16 05:37] LABS: RDW 14.6 (10.5-15.0)
[2023-05-16 05:38] LABS: BASOPHILS 1.2 % (0-2); EOSINOPHILS 2.5 % (0-6); HEMATOCRIT 23.7 % (35.0-50.0); LYMPHOCYTES 15.6 % (24-44); MCH 30.2 (27-36); MCHC 33.7 g/dl (30-36); MCV 89.4 fl (81-99); MONOCYTES 15.2 % (0-12); NEUTROPHILS 65.5 % (39-80); PLATELET COUNT 149 K/uL (140-440); RBC 2.66 M/ul (4.3-5.7)
[2023-05-16 05:45] LABS: INR 1.14 (0.80-1.30); PROTIME 14.1 Sec (11.2-14.2)
[2023-05-16 05:48] LABS: ANION GAP 9.6 (7-21); BUN/CREATININE RATIO 18.82 (6.0-28.6); CALCIUM 7.9 mg/dL (8.5-10.1); CREATININE, SERUM 0.85 mg/dL (0.55-1.02); MAGNESIUM 1.7 mg/dL (1.8-2.4); PHOSPHORUS, INORGANIC 2.7 mg/dL (2.5-4.9); POTASSIUM 3.6 mmol/L (3.5-5.1)
--- NOTE | 2023-05-16 06:01 | NUR ---
VS AND I&O OBTAINED. CLEAN PUREWICK PLACED AFTER LISET CARE. PT WEAK. ABLE TO ASSIST WITH CARES. WARM FACE CLOTH PROVIDED. ASSISTED WITH ORAL CARE. 2L/NC IN PLACE. SpO2 MID 90'S. PT REPORTS SOB NOT "WORSE THAN USUAL." CRACKLES AUSCULTATED IN BILAT LUNG BASES. PT EMOTIONAL AND FRUSTRATED WITH "FEELING PUNY." ENCOURAGEMENT PROVIDED. PT REPOSITIONED FOR COMFORT. DENIES FURTHER NEEDS.
--- NOTE | 2023-05-16 07:20 | NUR ---
Report received from night RN, all questions answered. Pt lying in bed with eyes closed, respirations even and unlabored. Pt remains on cpox, O2 sat 94% on 2L nc. Call light in reach.
--- NOTE | 2023-05-16 07:35 | NUR ---
PT RESTING IN BED. PT STATES SHE NEEDS TO HAVE A BM NOW. RN NOW IN ROOM TO ASSIST. PT UP TO BSC 2PA W FWW. PT BLOOD CLOT FELL ONTO FLOOR. PT ON BSC. LINENS CHANGED. BS TAKEN. PT CLEANED UP AND BACK TO BED. PUREWICK PLACED. NO NEEDS CALL LIGHT WITHIN REACH
--- NOTE | 2023-05-16 07:50 | NUR ---
Pt up to commode two person assist with FWW. Moderate amount blood clots with bright red blood per rectum. Pt assisted back to bed. Morning assessment complete. Crackles heard at lung bases, pt remains on 2L NC, O2 sat 88% with activity. Pt denies pain at this time. Alert and oriented x4. Pt denies further needs at this time. Call light in reach.
[2023-05-16 09:21] VITALS: BP 141/51
--- NOTE | 2023-05-16 09:21 | NUR ---
PT RESTING IN BED. DAUGHTER AT BEDSIDE. PT VITALS AND IS AND OS COMPLETE. PT HAS NO NEEDS AT THIS TIME. CALL LIGHT WITHIN REACH
--- NOTE | 2023-05-16 09:47 | NUR ---
PT IN BED WITH DAUGHTER IN ROOM. AUTHORIZATION MANAGER PREPARING FOR SHOWER-CAP SHAMPOO AND HYGEINE CARE SO EXITED ROOM. HOPE TO VISIT LATER TODAY.
--- NOTE | 2023-05-16 13:45 | NUR ---
PT BACK FROM CT, ASSISTED FROM WHEELCHAIR TO COMMODE, SMALL AMOUNT OF RED BLOOD CLOTS NOTED IN BREIF, BRIGHT RED BLOOD WHEN WIPING PATIENT. PT TO CHAIR FROM COMMODE. CALL LIGHT IN REACH. DAUGHTER AT BEDSIDE.
--- NOTE | 2023-05-16 14:27 | NUR ---
SPOKE TO THE PATIENT ABOUT THE DISCHARGE PLAN, IS TRYING TO FIND A HIGHER LEVEL HOSPITAL TO TRANSFER THE PATIENT TO SINCE PATIENT CONTINUES TO HAVE EPISODES OF GI BLEEDING.DAUGHTER AT BEDSIDE VISITING. BOTH PATIENT AND DAUGHTER UNDERSTAND THAT THE DISCHARGE PLAN HAS CHANGED BECAUSE OF THE CONTINUED BLEEDING.
[2023-05-16 14:52] VITALS: BP 134/49
[2023-05-16 15:03] LABS: EOSINOPHILS 1.6 % (0-6); HEMATOCRIT 26.1 % (35.0-50.0)
[2023-05-16 15:04] LABS: BASOPHILS 0.6 % (0-2); HEMOGLOBIN 8.6 g/dL (12.0-18.0); LYMPHOCYTES 13.4 % (24-44); MCH 29.8 (27-36); MCHC 33.1 g/dl (30-36); MCV 90.1 fl (81-99); MONOCYTES 15.2 % (0-12); NEUTROPHILS 69.2 % (39-80); PLATELET COUNT 182 K/uL (140-440); RBC 2.89 M/ul (4.3-5.7); RDW 14.7 (10.5-15.0)
--- NOTE | 2023-05-16 15:24 | PATH ---
[facility] [address] [place], [place] [address] Signed SPECIMEN(S): A DUODENAL (NOS) BIOPSY SPECIMEN SOURCE: A. DUODENAL (NOS) BIOPSY CLINICAL HISTORY: Rectal bleed, history of gastritis, nausea, vomiting, polyps. Postop: Gastroduodenitis, small hiatal hernia, diverticulosis, internal hemorrhoids. FINAL PATHOLOGIC DIAGNOSIS: Duodenal biopsy: - Benign duodenal mucosa with focal acute lamina propria and epithelial inflammation (duodenitis). - Negative for significant lymphocytic epithelial inflammation. - See comment. COMMENT: The biopsy shows acute duodenitis with focally preserved villous architecture, negative for evidence of Celiac disease. Clinical correlation is requested as similar findings can be seen in association with infections, medication effect, and other causes of peptic duodenitis. JVR:daisy:[id number] MICROSCOPIC EXAMINATION: Histologic sections of all submitted blocks are examined by light microscopy. These findings, together with the gross examination, support the pathologic diagnosis. GROSS DESCRIPTION: The specimen, labeled and designated "Rukhsana Nevarez, duodenal (NOS) biopsy," is received in formalin and consists of 1 mao soft round tissue fragment measuring 0.3 x 0.3 x 0.2 cm, submitted entirely in (A1). MMA (under the direct supervision of a pathologist) The Gross Description was prepared using a voice recognition system. The report was reviewed for accuracy; however, sound-alike word errors, addition and/or deletions may occur. If there is any question about this report, please contact Client Services. PERFORMING LABORATORY: Technical component was performed by [employer], Thomas Hodge, PATIENT NAME: CARIE NEVAREZ PATHOLOGY DATE OF : 33 REPORT #: [id number] PHYSICIAN: IONA MAYO PCP: ALICIA BENTLEY MD REPORT IS CONFIDENTIAL AND NOT TO BE RELEASED WITHOUT AUTHORIZATION [facility] [address] [facility] [place], [place] [address] [place] [address] (CLIA# [id number]). Professional interpretation was performed by [facility] [address] [address] (CLIA#: [id number]). Diagnostician: Jules Humphrey MD Pathologist Electronically Signed 05/16/2023 Copies: ~ PATIENT NAME: CARIE NEVAREZ PATHOLOGY DATE OF : 33 REPORT #: [id number] PHYSICIAN: IONA MAYO PCP: ALICIA BENTLEY MD REPORT IS CONFIDENTIAL AND NOT TO BE RELEASED WITHOUT AUTHORIZATION
[2023-05-16 16:38] VITALS: BP 141/48
--- NOTE | 2023-05-16 18:24 | NUR ---
PT SITTING UP IN BED, FINISHED DINNER. DAUGHTER AT BEDSIDE. PT INSTRUCTED ON COUGH AND DEEP BREATHING EXERCISES. PT VERABLIZED UNDERSTANDING. PT DENIES FURTHER NEEDS AT THIS TIME. CALL LIGHT IN REACH.
--- NOTE | 2023-05-16 19:25 | NUR ---
REPORT RECEIVED FROM JOHAN MONROY. pt AWAITING TRANSFER. RESTING IN BED. OXYGEN IN PLACE. CPOX ON.
[2023-05-16 20:23] VITALS: BP 138/42
--- NOTE | 2023-05-16 20:59 | NUR ---
CALL LIGHT ANSWERED. pt ASSISTED TO REMOVE COVERS, HOT. AFEBRILE. VSS. ASSESSMENT COMPLETE. IV NOT PATENT. IV D/C'D WNL. NEW PIV STARTED WNL RIGHT FOREARM, BRISK BLOOD RETURN. NEW PUREWICK PLACED, DRAINING URINE. pt IS ALERT AND ORIENTED TO ALL. ENSURE PROVIDED. PRN TYLENOL FOR DISCOMFORT. 2L OXYGEN BY NC IN PLACE, CPOX ON.
--- NOTE | 2023-05-16 21:31 | NUR ---
PT REQUESTED SIDE RAILS UP SO SHE CAN TURN WHEN SHE WANTS, FEELS MORE SECURE. REQUESTED AND RECEIVED BLANKET OVER HER FEET, NO OTHER NEEDS AT THIS TIME.
--- NOTE | 2023-05-16 23:09 | NUR ---
pt RESTING IN BED WITH EYES CLOSED. LYING ON RIGHT SIDE. SPO2 95% WITH 2L OXYGEN BY NC IN PLACE. NO DISTRESS NOTED.
--- NOTE | 2023-05-17 00:19 | NUR ---
CALL LIGHT ANSWERED. pt REPORTS FEELING "WET". ATTENDS WITH SMALL INCONTINENCE. LISET CARE COMPLETE, ATTENDS CHANGED. PUREWICK IN PLACE. REPOSITIONED HIGHER IN BED. pt DENIES ADDITIONAL NEEDS. CALL LIGHT IN REACH.
--- NOTE | 2023-05-17 03:11 | NUR ---
pt RESTING IN BED ON BACK, BREATHING UNLABORED. SPO2 95% WITH 2L OXYGEN BY NC IN PLACE. NO DISTRESS NOTED.
[2023-05-17 05:37] VITALS: BP 155/44
--- NOTE | 2023-05-17 05:47 | NUR ---
BUYING INTERN OUT OF ROOM. VSS. SPO2 WNL WITH 2L OXYGEN BY NC IN PLACE. pt PROVIDED WITH ENSURE AND ICE WATER PER REQUEST. NEW PUREWICK IN PLACE. ATTENDS DRY. NO BLOOD NOTED. pt DENIES PAIN. CALL LIGHT WITHIN REACH.
[2023-05-17 05:51] LABS: BASOPHILS 1.1 % (0-2); EOSINOPHILS 3.3 % (0-6); HEMATOCRIT 23.8 % (35.0-50.0); HEMOGLOBIN 8.1 g/dL (12.0-18.0); LYMPHOCYTES 18.9 % (24-44); MCH 30.2 (27-36); MCHC 34.2 g/dl (30-36); MCV 88.3 fl (81-99); MONOCYTES 15.3 % (0-12); NEUTROPHILS 61.4 % (39-80); PLATELET COUNT 193 K/uL (140-440); RBC 2.69 M/ul (4.3-5.7); RDW 14.5 (10.5-15.0)
[2023-05-17 06:00] LABS: INR 1.13 (0.80-1.30); PROTIME 13.9 Sec (11.2-14.2)
[2023-05-17 06:06] LABS: ALBUMIN 2.4 g/dL (3.4-5.0); BUN/CREATININE RATIO 20.65 (6.0-28.6); CALCIUM 8.1 mg/dL (8.5-10.1); CREATININE, SERUM 0.92 mg/dL (0.55-1.02); PROTEIN, TOTAL 4.8 g/dL (6.4-8.2)
--- NOTE | 2023-05-17 07:18 | NUR ---
REPORT RECEIVED FROM JOHAN CHAPIN. DR. RAMIREZ AT BEDSIDE FOR ROUNDS. PT UPDATED ON PLAN OF CARE AND STATES HER QUESTIONS HAVE BEEN ANSWERED. PT DENIES PAIN AND NAUSEA AT THIS TIME. OXGYEN SAUTRATION 96% ON 2L O2 BY NC. HEART RATE OF 66. PT DENIES ADDITIONAL REQUESTS OR COMPLAINTS. CALL LIGHT WITHIN REACH. BED RAILS UP.
--- NOTE | 2023-05-17 07:28 | NUR ---
MORNING ASSESSMENT AND MEDICATION DUE. PT REPORTS SHE FEELS "VERY WEAK." PT STATES "WHEN I CAME IN I COULD WALK MORE AND NOW I JUST FEEL SO WEAK." PT DENIES PAIN AND NAUSEA. PT REPORTS SHE FEELS THE NEED TO HAVE A BOWEL MOVEMENT. 1 PERSON ASSIST WITH FWW UP TO BEDSIDE COMODE. PT REPORTS SHE IS TOO WEAK TO AMBULATE TO RESTROOM. OXGYEN SATURATIONS DROP TO 86% ON 2L O1 BY NC WITH ACTIVITY. O2 INCREASED TO 4L O2 BY NC WITH ACTIVITY TO MAINTAIN OXGYEN SATUARTIONS ABOVE 92%. PT UNABLE TO HAVE BOWEL MOVEMENT. SMALL AMOUNT OF AMAURY RED BLOOD SEEN WITH LISET CARE. PT VOIDS 75ML DARK YELLOW URINE. PT STATES SHE IS SOMETIMES ABLE TO FEEL THE NEED TO VOID BUT "NOT ALWAYS." PT IS ALERT AND OREINTED TO ALL. HEART TONES REGULAR. LUNG SOUNDS CLEAR ALTHOUGH DEMINISHED IN LOWER LOBES. PT REMAINS ON 2L O2 BY NC WHILE AT REST WITH OXGYEN SATUARTIONS ABOVE 92%. 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 PALE, JAUNDICE LIKE TONE TO SKIN PRESENT. BOWEL TONES ACTIVE. ABDOMEN SOFT AND NON TENDER, PT REPORTS OCCATIONAL CRAMPING. PURE WICK REMAINS IN PLACE. MORNING CARES DONE WITH PT. PT REPORTS FREQUENT BURPING. MEDICATIONS GIVEN. PT BRUSHES TEETH WITH STAND BY ASSIST. NO ADDITIONAL REQUESTS OR COMPLAINTS AT THIS TIME. CALL LIGHT WITHIN REACH. BED RAILS UP.
--- NOTE | 2023-05-17 08:30 | NUR ---
PATIENT SITTING UP IN CHAIR FOR BREAKFAST. WASHCLOTH PROVIDED FOR FACE AND HANDS. LINEN CHANGED. CALL LIGHT IN EASY REACH
[2023-05-17 09:17] VITALS: BP 137/44
--- NOTE | 2023-05-17 09:40 | NUR ---
PT IN CHAIR. ADULT DAUGHTER SITTING ON BED. I EXERCISED MINISTRY OF PRESENCE PT AND DAUGTHER TALKED OF POSSIBLE CAUSES OF CURRENT CONDITION. DAUGTHER STATES PT HAS DIVERTICULITIS THAT PT MAY HAVE IRRITATED WITH DIETARY COMPONENTS. PT EXPRESSED FRUSTRATION WITH EVENT THAT HAPPENED YESTERDAY IN WHICH SHE DID NOT FEEL HEARD. PT AND DAUGTHER CONSENTED TO PRAYER. PRAYED FOR PEACE AND PERSEVERENCE ALONG WITH WIDSOM AND INSIGHT. AFTER I EXITED ROOM, I INFORMED JOHAN MONROY OF PT CONCERNS.
--- NOTE | 2023-05-17 09:46 | NUR ---
THIS RN TO ROOM TO CHECK ON PT. PT REMAINS UP TO CHAIR. VISITING WITH HER DAUGHTER. DAUGHTER UPDATED ON PT STATUS AND PLAN OF CARE, AND STATES HER QUESTIONS HAVE BEEN ANSWERED. PT DENIES PAIN AND NAUSEA "JUST FEELING WEAK." PT DENIES ADDITONAL REQUESTS OR COMPLAINTS. CALL LIGHT WITHIN REACH.
--- NOTE | 2023-05-17 10:12 | NUR ---
THIS RN TO ROOM WITH DR. CROCKER FOR ROUNDS. PT UPDATED ON PT STATUS AND PLAN OF CARE. PT DEMONSTRATES USE OF I.S. X5 REACHING 500ML. PT REMAINS ON 2L O2 BY NC WITH OXGYEN SATURATIONS OF 94%. PT REQUESTS TO GET BACK TO BED, 1 PERSON ASSIST WITH FWW BACK TO BED. OXGYEN INCREASED TO 4L O2 BY NC WITH ACTIVITY AND THEN WEANED BACK TO 2L O2 BY NC. PT REPORTS SHE "FEELS SAFER" HERE IN THE [facility], BUT NOT BETTER THAN WHEN SHE CAME IN. PT ALSO REPORTS "RIGHT NOW I COULDN'T GET DOWN FOR THOSE MEALS." PT REPORTS A LONG DISTANCE TO WALK TO RECEIVE MEALS. PT REPORTS SHE WOULD LIKE TO RETURN TO HER ASSISTED LIVING FACILITY. NO ADDITIONAL NEEDS AT THIS TIME. CALL LIGHT WITHIN REACH. BED RAILS UP. BED ALARM ON.
--- NOTE | 2023-05-17 10:15 | NUR ---
covid swab collected sent to the lab
[2023-05-17 10:47] LABS: INFLUENZA B NAA NEGATIVE (NEGATIVE); RESPIRATORY SYNCYTIAL VIR NAA NEGATIVE (NEGATIVE)
--- NOTE | 2023-05-17 11:12 | NUR ---
THIS RN TO ROOM TO CHECK ON PT. PT RESTING WITH EYES CLOSED ON RIGHT SIDE IN BED. RESPIRATIONS EVEN AND UNLABORED. HEAD OF BED AT 25 DEGREES. OXGYEN SATURATION 95% ON 2L O2 BY NC. PT ALLOWED TO REST. CALL LIGHT WITHIN REACH. BED RAILS UP. FAMILY AT BEDSIDE. BED ALARM ON.
--- NOTE | 2023-05-17 12:45 | NUR ---
MEDICATION DUE. PT RESTING ON RIGHT SIDE IN BED. PT AWAKE AND ALERT. 1 PERSON ASSIST WITH FWW UP TO CHAIR FOR LUNCH. OXYGEN INCRASED TO 4L O2 BY NC WITH ACTIVITY TO MAINTAIN OXYGEN SATUARTIONS ABOVE 90%. PT TOLERATES MOVEMENT WELL ALTHOUGH REPORTS FEELING "A LITTLE" SHORT OF BREATH. BLOOD SUGAR TAKEN, INSULIN GIVEN. PT EATING LUNCH. PT DENIES ADDITIONAL REQUESTS OR COMPLAINTS. CALL LIGHT WITHIN REACH. FAMILY AT BEDSIDE.
--- NOTE | 2023-05-17 13:15 | NUR ---
this rn to room to check on pt. pt remains up to chair, finishing up lunch. pt denies requests or complaints. oxgyen satuations of 96% on 2l o2 by nc. family at bedside. call light within reach.
--- NOTE | 2023-05-17 14:28 | NUR ---
AFTERNOON ASSESSMENT DUE. PT UP TO CHAIR. FINISHED WITH LUNCH. PT DENIES PAIN AND NAUSEA. PT ALERT AND OREITNED TO ALL. PT CONTINUES TO REPORT WEAKNESS BUT SEEM STRONGER THAN THIS MORNING. PT UP TO AMBULATE X2 LAPS IN ROOM ARROUND BED WITH PHYSICAL THERPIST. PT ABLE TO TOELARTE THIS ACTIVITY ON 3L O2 BY NC. PT DENIES PAIN WITH ACTIVITY REPORTING JUST WEAKNESS AND MILD SHORTNESS OF BREATH. LUNG SOUNDS CLEAR. HEAR TONES REGULAR. PT WEANED BACK TO 2L O2 BY NC AFTER ACTIVITY. NO BOWEL MOVEMENTS SEEN YET TODAY. PALE COLOR WITH MILD JANUDICE CONTINUES. PT BACK TO CHAIR AFTER WORKING WITH PYSICAL THERAPY. NEW PURE WICK PLACED PER PROTOCOL. PT RESTING IN CHAIR. NO ADDITIONAL REQUESTS OR COMPLAINTS. CALL LIGHT WITHIN REACH. FAMILY AT BEDSIDE.
[2023-05-17 14:50] VITALS: BP 139/45
--- NOTE | 2023-05-17 15:00 | NUR ---
PATIENT RESTING IN CHAIR, FAMILY MEMBER ON COUCH. VITALS AND I&OS CHARTED. CALL LIGHT IN EASY REACH
--- NOTE | 2023-05-17 16:21 | NUR ---
THIS RN TO ROOM TO CHECK ON PT. PT RESTING WITH EYES CLOSED. RESPIRATIONS EVEN AND UNLABORED. PT REMAINS UP TO CHAIR. OXYGEN SATURATIONS 95% ON 2L O2 BY NC. CALL LIGHT WITHIN REACH. PT ALLOWED TO REST UNDESTURBED.
[2023-05-17 17:14] VITALS: BP 156/50
--- NOTE | 2023-05-17 17:29 | NUR ---
DINNER DELIVERED TO PT. PT REMAINS UP TO CHAIR. ASSISTED WITH SITTING UP/REPOSITIONING FOR DINNER. INSULIN GIVEN. OXGYEN SATURATION 92% ON 2L O2 BY NC. PT DENIES ADDITIONAL REQUESTS OR COMPLAINTS. PT EATING DINNER. CALL LIGHT WITHIN REACH. FAMILY AT BEDSIDE.
--- NOTE | 2023-05-17 17:39 | NUR ---
PT HERE FOR GI BLEED. PT UP TO CHAIR AND WITH PHYSICAL THERAPY WITH 1 PERSON ASSIST AND FWW THIS HSIFT. PT UP TO COMODE BUT NO ADDITONAL BOWEL MOVEMENTS SEEN SO FAR THIS SHIFT. PT TOLERATING FULL LIQUID DIET WELL AND WITH GOOD APPITITE. PT DENIES PAIN AND NAUSEA THROUGHOUT SHIFT. PT REMAINS ON 2L O2 BY NC WITH INCREASE TO 3-4L O2 BY NC WITH ACTIVITY TO MAINTAIN OXGYEN SATURATIONS ABOVE 90%. PURE WICK IN PALCE FOR INCONTINANCE. PTS SKIN TONES CONTINEU TO BE PALE AND JAUNICE LIKE. BLOOD COUNTS STABLE SO FAR THIS SHIFT. PT VOIDING QUANITY SUFFICIENT. PT USES CALL LIGHT AND MAKES NEEDS KNOWN. FAMILY AT BEDSIDE THROUGHOUT SHIFT.
--- NOTE | 2023-05-17 18:46 | NUR ---
PT FINISHED WITH DINNER AND REQUESTS TO GET BACK TO BED. 1 PERSON ASSIST WITH FWW BACK TO BED. PT REPORTS DEPENDS ARE SOILED. DEPENDS INDEED WET AND RED BOWEL MOVEMENT SEEN. LISET CARE DONE. DEPENDS AND PURE WICK CHANGED. PT RESTING IN BED WITH HEAD OF BED AT 25 DEGREES. FAMILY AT BEDSIDE. NO ADDITIONAL REQUESTS OR COMPLANITS. CALL LIGHT WITHIN REACH. BED RAILS UP. BED ALARM ON.
[2023-05-17 20:56] VITALS: BP 161/43
--- NOTE | 2023-05-17 21:31 | NUR ---
Educated on using IS as pt lungs are coarse. Weaned to 1 liter NC. Will continue to monitor.
--- NOTE | 2023-05-17 22:03 | NUR ---
Tried Weaning O2 to RA, pt desats while sleeping to 87%. Put her back on 1 Liter NC. RT aware.
--- NOTE | 2023-05-17 23:43 | NUR ---
Emptied ext cath output. Pt sleeping sating at 90% on 1 liter, 94% when awake.
[2023-05-18] VITALS (7 sets, daily range): BP systolic 110–190; BP diastolic 32–76
[2023-05-18 06:08] LABS: HEMOGLOBIN 8.3 g/dL (12.0-18.0); MCH 30.1 (27-36); RBC 2.74 M/ul (4.3-5.7)
[2023-05-18 06:09] LABS: BASOPHILS 0.9 % (0-2); EOSINOPHILS 2.2 % (0-6); HEMATOCRIT 24.6 % (35.0-50.0); LYMPHOCYTES 15.8 % (24-44); MCHC 33.6 g/dl (30-36); MCV 89.6 fl (81-99); MONOCYTES 15.9 % (0-12); NEUTROPHILS 65.2 % (39-80); PLATELET COUNT 237 K/uL (140-440); RDW 14.7 (10.5-15.0)
[2023-05-18 06:14] LABS: ANION GAP 10.6 (7-21); BUN/CREATININE RATIO 24.46 (6.0-28.6); CALCIUM 8.4 mg/dL (8.5-10.1); CREATININE, SERUM 0.94 mg/dL (0.55-1.02); POTASSIUM 3.6 mmol/L (3.5-5.1)
--- NOTE | 2023-05-18 07:18 | NUR ---
REPORT RECEIVED FROM JOHAN MARIE. PT RESTING IN BED ON LEFT SIDE WITH EYES CLOSED. RESPIRATIONS EVEN AND UNLABORED. OXGYEN SATURATION S96% ON 2L O2 BY NC. HERAT RATE OF 60. PT ALLOWED TO REST UNDESTURBED. BED RAILS UP. CALL LIGHT WITHIN REACH. BED ALARM ON.
--- NOTE | 2023-05-18 07:42 | NUR ---
MORNING ASSESSMENT AND MEDICATION DUE. PT CALL LIGHT ON. PT REPORTS NEED TO USE THE COMODE FOR A BOWEL MOVEMENT. 1 PERSON ASSIST WITH FWW UP TO COMODE. STOOL SEEN IN DEPENDS. SOFT BROWN STOOL WITH AN OBVIOUS RED COLOR. PT HAS LARGE BOWEL MOVEMENT ON THE COMODE, SOFT AND RED/BROWN. AMAURY RED IN COLOR BUT FORMED LIKE STOOL. LISET CARE DONE. DEPENDS AND PURE WICK CHANGED. 1 PERSON ASSIST WITH FWW UP TO CHAIR. PT DENIES PAIN. ORAL CARE AND MORNING CARES DONE AND PT BEGINS VOMITING, YELLOW BILE LIKE FLUID, ~100ML. MEDICATION GIVEN. ORAL CARE REDONE AFTER EMESIS. PT ALSO EXHIBITING JERKING LIKE MOVEMENTS OF ARMS AND LEGS. WARM BLANKETS PROVIDED. PT UANBEL TO DESCRIBE JERKING MOVEMENTS, STATING ONLY "I JUST DONE FEEL WELL." VITAL SIGNS TAKEN. BLOOD PRESSURE ELEVATED TO 199/61, TAKEN MANNULALY AND FOUND TO BEE 190/76. MORNING MEDICATION GIVEN. PT REMAINS ALERT AND OREINTED TO ALL BUT EXACT DATE. PT. LUNG SOUNDS CLEAR ALTHOUGH DEMINISHED IN BASES. PT REMAINS ON 2L O2 BY NC WITH OXYGEN SATUARTIONS OF 96%. HEART TONES REGULAR. ABDOMEN SOFT AND NON TENDER. BOWEL TONES HYPERACTIVE, HEARD CONTINIOUSLY. PT ENCOURAEGED TO EAT MINIMALLY FOR BREAFKAST AND ALLOW NASUEA TO CHAVA. PT REPORTS "I FEEL A LOT BETTER THAN I DID 15 MINUTES AGO." SKIN TONE REMAINS PALE WITH MILD JAUNICE COLOR. UPDATED REGARDING PTS BLOOD PRESSURE. AWAITING NEW ORDERS. NO ADDITIONAL NEEDS AT THIS TIME. CALL LIGHT FRAN DOUGLASS.
--- NOTE | 2023-05-18 08:23 | NUR ---
Patient up onto bsc, 1pa w/fww. Tolerated very well. patient has complaints of nausea, with emesis(see nurse note). Patient in chair, purewick applied. Pt has no other requests at this time. call light within reach.
--- NOTE | 2023-05-18 08:54 | NUR ---
PATIENT IN CHAIR AFTER MEAL. VITALS AND I/O'S COMPLETED. PT HAS A MANUAL BP OF 110/32, NURSE NOTIFIED. PATIENT HAS NO OTHER NEEDS AT THIS TIME. CALL LIGHT WITHIN REACH.
--- NOTE | 2023-05-18 10:12 | NUR ---
THIS RN TO ROOM TO CHECK ON PT. PT FINISHING WORKING WITH PHYSICAL THERAPY. PT DENIES PAIN AND NAUSEA. BLOOD PRESSURE IMPROVING. PT REPORTS "I JUST FEEL SO TIRED, THATS ALL." PT DENIES ADDITIONAL REQUESTS OR COMPLAINTS. CALL LIGHT WITHIN REACH. FAMILY AT BEDSIDE, UPDATED ON PLAN OF CARE AND STATE THEIR QUESTIONS HAVE BEEN ANSWERED.
--- NOTE | 2023-05-18 10:16 | NUR ---
TWO DAUGHTERS AND SON-IN-LAW IN ROOM. EXERCISED MINISTRY OF PRESENCE PT TALKED OF HOW SHE WAS FEELING. SHORT VISIT MEDICAL STAFF CAME IN FOR CARE. LATER CONNECTED WITH YOUNGER DAUGHTER IN [place]. AGAIN EXERCISED MINISTRY OF PRESENCE SHE TALKED OF NEED TO DISCERN PATH FORWARD, STATING PT IS NEEDING TO BE DISCHARGED TO SNF AND DISATISFACTION WITH LOCAL OPTIONS. ASSURED HER OF ONGOING PRAYER.
--- NOTE | 2023-05-18 10:29 | NUR ---
PT FINISHED WITH PHYSICAL THERAPY AND REPORTS DEPENDS IS WET. LISET CARE DONE. ADDITIONAL RED SOFT STOOL SEEN WITH WIPING AND LISET CARE. FRESH DEPENDS IN PLACE. NEW PURE WICK IN PLACE. PT DENIES PAIN AND NAUSEA. FRESH ICE WATER PROVIDED. PT WEANTED TO ROOM AIR AND IS MAINTAINING OXGYEN SATUARTIONS ABOVE 92%. PT DENIES ADDITIONAL REQUESTS OR COMPLAINTS CALL LIGHT WITHIN REACH. FAMILY AT BEDSIDE.
--- NOTE | 2023-05-18 11:22 | NUR ---
THIS RN TO ROOM TO CHECK ON PT. PT REMAINS UP TO CHAIR. OXYGEN SATUATIONS NOW 885 ON ROOM AIR. PT PLACED BACK ON 1L O2 BY NC AND MAINTAINS ABOVE 92%. PLAN OF CARE REVIEWED WITH PT. PT REPORTS SHE WOULD LIKE TO ENTER A REHAB PROGRAM FOR PHYSICAL THERAPY ONCE SHE LEAVES THE HOSPITAL. CAR REPAIRMAN UPDATED. PT DENEIS ADDITIONAL REQUESTS OR COMPLAINTS. CALL LIGHT WITHIN REACH. FAMILY AT BEDSIDE.
--- NOTE | 2023-05-18 11:30 | NUR ---
SPOKE WITH ESTEE PRADO, SHE STATES SHE HAS HAD A FEW CONVERSATION WITH THE PATIENT TODAY ABOUT PLACEMENT FOR ONGOING PT. ESTEE PRADO STATES THAT THE PATIENT IS NOW AGREEABLE TO PLACEMENT AND HER FAMILY IS AT THE BEDSIDE TO DISCUSS HER OPTION. IN TO THE ROOM, PATIENT SITTING UP IN CHAIR. PATIENT DAUGHTER JS AND TWO OTHER FAMILY MEMBERS AT THE BEDSIDE. PLACEMENT OPTION LIST IN THE ROOM FROM PREVIOUS CONVERSATIONS WITH CASE MANAGEMENT. DISCUSSED WITH THE PATIENT AND FAMILY PLACEMENT OPTIONS, PAYMENT, TIMELINE AND GOALS. PATIENT IS AGREEABLE TO SHORT TERM REHAB STAY. PATIENTS DAUGHTER AND FAMILY PREFER [facility] OR [facility] WHILE THE PATIENT WOULD LIKE [facility] SHE DOES NOT KNOW ANYTHING ABOUT THE OTHER FACILITIES. AGREED TO LET PATIENT AND THE FAMILY TO DISCUSS PLACEMENT FURTHER AND CHECK BACK IN WITH THEM LATER THIS AFTERNOON.
[2023-05-18 11:42] LABS: HEMOGLOBIN 8.4 g/dL (12.0-18.0)
[2023-05-18 11:43] LABS: HEMATOCRIT 25.2 % (35.0-50.0); MCH 29.9 (27-36); MCHC 33.3 g/dl (30-36); MCV 89.9 fl (81-99); PLATELET COUNT 248 K/uL (140-440); RBC 2.81 M/ul (4.3-5.7); RDW 14.8 (10.5-15.0)
[2023-05-18 11:57] LABS: LYMPHOCYTES, MANUAL DIFF 5; MONOCYTES, MANUAL DIFF 7; NEUTROPHILS, MANUAL DIFF 88
--- NOTE | 2023-05-18 12:06 | NUR ---
LUNCH DELIVERED TO PT. PT REMAINS UP TO CHAIR TO EAT. LAB TO BEDSIDE TO DRAW LABS. INSULIN GIVEN. PT DENIES ADDITIONAL REQUESTS OR COMPLAINTS. CONTINUES TO TOLERATE 1L O2 BY NC WITH OXGYEN SATURATIONS ABOVE 92%. CALL LIGHT WITHIN REACH. FAMILY AT BEDSIDE.
--- NOTE | 2023-05-18 13:21 | NUR ---
AFTERNOON ASSESSMENT DUE. PT REQUESTS TO GET BACK TO BED. PT DENIES PAIN AND NAUSEA. PT REPORTS HER MORNING STOMACH DISCOMFORT HAS NOT RETURNED SINCE BEFORE BREAKFAST. 1 PERSON ASSIST WITH FWW BACK TO BED. PT ASSISTED WITH POSITIONING IN BED FOR COMFORT. HEAD OF BED AT 25 DEGREES. PT REMAINS ALERT AND ORIENTED TO ALL, NOW KNOWS DATE WELL. LUNG SOUNDS CLEAR IN UPPER LOBES AND RIGHT LOWER LOBE (DEMINISHED), BUT CRACKLES CAN BE HEARD IN LEFT LOWER LOBE AT TIMES. PT REMAINS ON 1L O2 BY NC. NEEDS 2 O2 BY NC WITH TRANSFER BACK TO BED TO MAINTAIN OXYGEN SATURATIONS ABOVE 92%. BOWEL TONES ACTIVE AT THIS TIME, WNL. ABDOMEN SOFT AND NON TENDER. PT DENIES ANY CRAMPING PAIN. NO ADDITIONAL BOWEL MOVEMENTS SO FAR THIS SHIFT. PT DENIES DIZZINESS OR LIGHTHEADED NESS WITH TRANSFER BACK TO BED. YELLOW PALE SKIN TONE CONTINUES. PT NOW RESTING WITH EYES CLOSED. BED RAILS UP. CALL LIGHT WIHTIN REACH. FAMILY AT BEDSIDE. NO ADDITIONAL REQUESTS OR COMPLAINTS.
--- NOTE | 2023-05-18 13:39 | NUR ---
DR. CROCKER UPDATED ON PT STATUS AND ASSESSMENT. ORDERS GIVEN TO LIMIT RED FOOD INTAKE AND HEME-OCCULT NEXT BOWEL MOVEMENT. ORDERS ENTERED. REPEAT BACK PERFORMED.
--- NOTE | 2023-05-18 13:59 | NUR ---
SPOKE WITH DR. CROCKER, HE STATES HE HAS JUST SPOKE WITH THE PATIENT AND FAMILY. THEY WOULD LIKE TO SEEK PLACEMENT AT [facility] OR [facility]. ADVISED CHART HAS BEEN SENT TO BOTH FACILITIES, WILL UPDATE [place]. DOWN TO PATIENTS ROOM, LIGHTS OUT AND CURTAINS DRAWN. ESTEE PRADO UPDATED.
--- NOTE | 2023-05-18 14:01 | NUR ---
THIS RN TO ROOM TO CHECK PT. PT RESTING ON RIGHT SIDE IN BED WITH EYES CLOSED. RESPIRATIONS EVEN AND UNLABORED BUT OXYGEN SATURATIONS ARE 87%. O2 INCREASED TO 2L O2 BY NC TO MAINTAIN OXGYEN SATURATIONS ABOVE 90% WHILE SLEEPING. NO ADDITIONAL NEEDS AT THIS TIME. CALL LIGHT WITHIN REACH. BED RAILS UP. FAMIY AT BEDSIDE.
--- NOTE | 2023-05-18 15:05 | NUR ---
THIS RN TO ROOM TO CHECKON PT. PT CONTINUES RESTING ON RIGHT SIDE WITH EYES CLOSED. RESPIRATIONS EVEN AND UNLABORED. OXYGEN SATURATIONS 94%. ON 2L O2 BY NC. PT ALLOWED TO REST. CALL LIGHT WITHIN REACH. FAMILY AT BEDSIDE. BED RAILS UP.
--- NOTE | 2023-05-18 15:35 | NUR ---
PT CALL LIGHT ON. PT REPORTS NEED TO USE THE RESTROOM. 1 PERSON ASSIST WITH FWW UP TO RESTROOM. PT HAS SMEAR OF RED SOFT STOOL ON DEPENDS. ADDITIONAL RED BOWEL MOVEMENT (SOFT BUT RED THROUGHOUT STOOL) SEEN. HEME-OCCULT TEST DONE X2 ON DIFFIERENT AREAS OF SAMPLE, ALL SHOW POSITIVE RESULTS. LISET CARE DONE. DEPENDS CHANGED. NEW PURE WICK IN PLACE. FAMILY UPDATED. MESSAGE SENT TO MD. NO ADDITIONAL NEW ORDERS AT THIS TIME. CALL LIGHT WITHIN REACH. NO ADDITIONAL REQUSTS OR COMPLAINTS. ICE WATER REFILLED. PT BACK TO BED WITH STAND BY ASSIST AND FWW. I.S. USE DEMONSRATED REACHING 750ML X5. HEAD OF BED ELEVATED TO 25 DEGREES. FAMILY AT BEDSIDE. CALL LIGHT WITHIN REACH.
--- NOTE | 2023-05-18 17:18 | NUR ---
DINNER DELIVERED TO PT. PT UP TO CHAIR WITH STAND BY ASSIST FROM THIRD RIGGER FOR DINNER. OXGYEN SATUARTIONS 90-94% ON 2L O2 BY NC. INSULIN GIVEN. PT DENIES PAIN AND NAUSEA. NO ADDITIONAL REQUESTS OR COMPLAINTS. CALL LIGHT WITHIN REACH. FAMILY AT BEDSIDE.
[2023-05-18 17:24] LABS: IS CROSSMATCH COMPATIBLE
--- NOTE | 2023-05-18 17:49 | NUR ---
PT HERE FOR GI BLEED. PT UP TO CHAIR AND WITH PHYSICAL THERAPY WITH 1 PERSON ASSIST AND FWW THIS SHIFT. PT UP TO COMODE AND RESTROOM, ADDITIONAL RED BOWEL MOVEMENTS SEEN THIS SHIFT, STOOL RED THROUGHOUT BUT SOFT AND THE CONSISTANCY OF STOOL. HEME-OCCULT TEST PERFORMED, POSITIVE. PT TOLERATING FULL LIQUID DIET WELL AND WITH GOOD APPITITE. PT DENIES PAIN AND NAUSEA THROUGHOUT SHIFT. PT REMAINS ON 2L O2 BY NC WITH SLEEP AND ACITVITY. PT WEANED TO 1L O2 BY NC WHEN RESTING. PURE WICK IN PALCE FOR INCONTINANCE. PTS SKIN TONES CONTINUES TO BE PALE AND JAUNICE LIKE. BLOOD COUNTS STABLE SO FAR THIS SHIFT. PT VOIDING QUANITY SUFFICIENT. PT USES CALL LIGHT AND MAKES NEEDS KNOWN. FAMILY AT BEDSIDE THROUGHOUT SHIFT. CASE MANAGEMENT WORKING ON PLACEMENT FOR PT.
--- NOTE | 2023-05-18 18:28 | NUR ---
THIS RN TO ROOM TO CHECK ON PT. PT REQUESTS TO GET BACK TO BED. 1 PERSON ASSIST WITH FWW BACK TO BED. PT POSITIONS SELF IN BED. OXYGEN INCRASED TO 3L O2 BY NC TO MAINTAIN SATUARTIONS ABOVE 90% WITH ACTIVITY. PT WEANED BACK TO 2L O2 BY NC WHILE RESTING. WARM BLANKETS PROVIDED. PT DENIES ADDITIONAL REQUESTS OR COMPLAINTS. CALL LIGHT WITHIN REACH. FAMILY AT BEDSIDE.
--- NOTE | 2023-05-18 19:30 | NUR ---
Pt assesed, lungs sounds better compared to yesterday. No complains at this time.
[2023-05-18 20:01] LABS: BASOPHILS 0.5 % (0-2); HEMOGLOBIN 7.9 g/dL (12.0-18.0)
[2023-05-18 20:03] LABS: EOSINOPHILS 1.1 % (0-6); HEMATOCRIT 24.1 % (35.0-50.0); LYMPHOCYTES 11.3 % (24-44); MCH 29.5 (27-36); MCHC 32.8 g/dl (30-36); MONOCYTES 15.7 % (0-12); NEUTROPHILS 71.4 % (39-80); PLATELET COUNT 239 K/uL (140-440); RBC 2.68 M/ul (4.3-5.7); RDW 14.6 (10.5-15.0)
--- NOTE | 2023-05-18 20:45 | NUR ---
in to get vs, accu-check done, no further needs
--- NOTE | 2023-05-18 21:50 | NUR ---
IN TO RECHECK BLOOD SUGAR PER RN, AURELIO REPLACED, NEW ATTENDS ON, RN IN WITH NO FURTHER NEEDS FOR THIS SPINNING LATHE OPERATOR
--- NOTE | 2023-05-19 | NUR ---
Pt woke up in panic, had the tremors. This resolved by itself.
[2023-05-19 05:27] LABS: EOSINOPHILS 2.1 % (0-6); HEMATOCRIT 23.1 % (35.0-50.0); HEMOGLOBIN 7.8 g/dL (12.0-18.0); MCV 88.9 fl (81-99)
[2023-05-19 05:28] LABS: BASOPHILS 0.6 % (0-2); LYMPHOCYTES 12.9 % (24-44); MCHC 33.8 g/dl (30-36); MONOCYTES 15.5 % (0-12); NEUTROPHILS 68.9 % (39-80); PLATELET COUNT 251 K/uL (140-440); RBC 2.59 M/ul (4.3-5.7)
[2023-05-19 05:41] LABS: ALBUMIN 2.3 g/dL (3.4-5.0); ALBUMIN/GLOBULIN RATIO 0.92 (1.1-2.4); ANION GAP 9.8 (7-21); BILIRUBIN, TOTAL 0.9 ng/dL (0.2-1.0); BUN/CREATININE RATIO 22.77 (6.0-28.6); CALCIUM 8.2 mg/dL (8.5-10.1); CREATININE, SERUM 1.01 mg/dL (0.55-1.02); POTASSIUM 3.8 mmol/L (3.5-5.1); PROTEIN, TOTAL 4.8 g/dL (6.4-8.2)
--- NOTE | 2023-05-19 05:57 | NUR ---
Pt sleeping with no distress noted. Will continue to monitor.
[2023-05-19 06:27] VITALS: BP 132/46
--- NOTE | 2023-05-19 06:29 | NUR ---
Andie and sangita changed.
--- NOTE | 2023-05-19 07:19 | NUR ---
REPORT RECEIVED FROM JOHAN MARIE. PT RESTING IN BED, AWAKEN AND ALERT BUT STATES SHE IS TIRED AND WANTS TO GO BACK TO SLEEP. OXYGEN SATURATION 97% ON 2L O2 BY NC. PT WEANED TO 1L O2 BY NC. PT DENIES PAIN AND NAUSEA. BED RAILS UP. CALL LIGHT WITHIN REACH.
--- NOTE | 2023-05-19 07:49 | NUR ---
MORNING ASSESSMENT AND MEDICATION DUE. PT RESTING ON LEFT SIDE IN BED. PT INITIALLY DECLINES TIME UP TO CHAIR FOR BREAKFAST BUT THEN AGREES. 1 PERSON ASSIST WITH FWW UP TO COMODE AND THEN UP TO CHAIR. PT NEEDS 3L O2 BY NC WITH ACTIVITY OF GETTING UP TO MAINTAIN OXGYEN SATUARTIONS ABOVE 90%. LISET CARE DONE. DEPENDS CHANGED. NEW PURE WICK IN PLACE. PT REMAINS ALERT AND ORIENTED TO ALL. PT REPORTS STIFFNESS BUT OTHERWISE DENIES PAIN. PT DENIES NAUSEA THIS MORNING. LUNG SOUNDS CLEAR THROUGHOUT. OXGYENS ATURATION MAINTAINS ABOVE 92% ON 1L O2 BY NC WHILE AT REST. HEART TONES REGULAR. HEART RATE 50'S AT REST AND 70'S WITH ACTIVITY THIS MONRING. PHARMACIST, JOSHUA, CALLED AND CONFIRMS NO PERAMETERS PRESENT AND BOTH OF THESE MEDICAITONS COULD AFFECT PTS HR. DILTIAZEM AND METOPROLOL HELD AT THIS TIME PENDING MD EVALUATION. PALE SKIN TONE WITH MILD JAUNDICE CONTIUES. OTHER MEDICATION GIVEN. PT UP TO CHAIR EATIGN BREAFKAST. NO ADDITIONAL REQUESTS OR COMPLAINTS. CALL LIGHT WITHIN REACH.
--- NOTE | 2023-05-19 09:23 | NUR ---
UPDATED ON PTS STATUS AND MEDICATIONS HELD. DR CROCKER STATES TO GIVE CARTIZEM NOW AND METOPROLOL WILL BE HELD TILL EVENING. UP UP WITH PHYSICAL THERAPY. HEART RATE IN THE 70'S. MEDICAITON GIVEN. PT REPORTS 5/10 PAIN ON THE INNER SIDE OF RIGHT FOOT. SMALL RED BUMP ~1 INCH IN DIAMETER, SEEN. PT REPORTS THIS BUMP IS PAINFUL WHEN TOUCHED. TYELNOL GIVEN. PT CONTINUES WORKING WITH PHYSICAL THERAPY. NO ADDITONAL NEDS AT THIS TIME. CALL LIGHT WITHIN REACH.
[2023-05-19 09:55] VITALS: BP 92/60
--- NOTE | 2023-05-19 10:17 | NUR ---
THIS RN TO ROOM TO CHECK ON PT. PT RESTING IN CHAIR AND VISITING WITH FAMILY. PT REPORTS PAIN IN RIGHT FOOT HAS IMPROVED NOW 12/08. PT DENIES NEED FOR ADDITIONAL PAIN MEDICAITON. ICE WATER REFILLED. OXGYEN SATUATION 96% ON 1L O2 BY NC. ROOM AIR TRIAL ATTEMPTED. PT DROPS TO 88%. PT REMAINS ON 1L O2 BY NC TO MAINTAIN OXGYEN SATURATIONS ABOVE 92%. NO ADDITIONAL REQUESTS OR COMPLAINTS. CALL LIGHT WITHIN REACH. BED RAILS UP.
--- NOTE | 2023-05-19 11:30 | NUR ---
THIS RN TO ROOM TO CHECK ON PT. PT UP IN ROOM MOVING AROUND. PT DENIES PAIN OR NAUSEA. NO ADDITIONAL REQUESTS OR COMPLAINTS. IV SITE REMAINS WNL. CALL LIGHT WITHIN REACH. BED RAILS UP.
--- NOTE | 2023-05-19 11:32 | NUR ---
THIS RN TO ROOM WITH MD FOR ROUNDS. PT REMAINS UP TO CHAIR. REDNESS TO PTS FOOT EXAMINED BY MD, NEW ORDERS PLACED. PT REQUESTS TO ADVANCE DIET. DIET CRACKERS PROVIDED WITH LUNCH AND PT WILL DETERMIN IF SHE IS READY TO FUTHER ADVANCE. PT VERBALZIES UNDERSTANDING OF PLAN OF CARE ADN STATES HER QUESTIONS HAVE BEEN ANSWERED. PT REQUESTS TIME TO REST WITH OUT HER FAMILY PRESENT. FAMILY LEAVES AND PT IS RESTING IN CHAIR. FAMILY STATES "SHE MUST BE FEELING BETTER, SHE'S ACTING MORE LIKE HERSELF." NO ADDITIONAL REQUESTS OR COMPLAINTS. CALL LIGHT WITHIN REACH. PT CONTINUES TO TOLERATE 1L O2 BYNC WITH OXGYEN SATURATION OF 92-96%.
--- NOTE | 2023-05-19 12:18 | NUR ---
LUNCH DELIVERED TO PT. PT RESTING IN CHAIR. FAMILY BACK AT BEDSIDE. INSULIN GIVEN. VOLTAREN GELL APPLIED TO RIGHT INNER FOOT. PT REPORTS 2/10 PAIN "WHEN I'M JUST LYING HERE." PT REPORTS PAIN IS WORSE WITH ACTIVITY. PT CONTINUES TO TOLERAT 1L O2 BY NC WITH OXGYEN SATURATIONS ABOVE 92%. NO ADDITONAL REQUESTS OR COMPLAINTS. CALL LIGHT WITHIN REACH.
--- NOTE | 2023-05-19 14:07 | NUR ---
AFTERNOON ASSESSMENT DUE. PT REPORTS SHE IS READY TO GET BACK TO BED. PT REPROTS 0/10 PAIN IN RIGHT FOOT WITHT REST AND 3/10 PAIN WITH ACTIVITY. PT REPORTS THE VOLTAREN CREAM HELPS "A LITTLE." PT ENCOUARGED TO CONTINUE THE CREAM PRN. PT DENIES NAUSEA. PT REMAINS ALERT AND OREINTED TO ALL. STAND BY ASSIST WITH FWW BACK TO BED. PT POSITIONS SELF IN BED. HEAD OF BED AT 25 DEGREES. PURE WICK REMAINS IN PLACE, WNL. LUNG SOUNDS CLEAR. PT REMAINSON 1L O2 BY NC WHILE AT REST 2L WITH ACTIVTY TO MAINTAIN OXGYEN SATURATIONS ABOVE 92%. PT TOLEARTED ACTIVITY WELL AND REPORTS SHE FEELS "STRONGER" THAN A FEW DAYS AGO. HEART TONES REGULAR. ABDOMEN SOFT AND NON TEDNER. BOWEL TONES ACTIVE. PT TOELRATED LUNCH WELL AND STATES SHE READY FOR "REAL FOOD." PT ADVANECED TO 60G CARB DIET. DINNER ORDER OF SOUP AND SANDWICH PLACED. NO ADDITIONAL REQUESTS OR COMPLAINTS. CALL LIGHT WITHIN REACH. BED RAILS UP.
[2023-05-19 14:22] VITALS: BP 112/51
--- NOTE | 2023-05-19 14:39 | NUR ---
THIS RN TO ROOM TO CHECK ON PT. PT RESTING WITH EYES CLOSED. RESPIRATIONS EVEN AND UNLABORED. OXGYEN SATURATIONS 92% ON 2L O2 BY NC WHILE RESTING. CALL LIGHT WITHIN REACH. BED RAILS UP. PT ALLOWED TO REST UNDESTURBED.
--- NOTE | 2023-05-19 15:26 | NUR ---
HOURLY ROUNDS: PT RESTING IN BED, SEMIFOWLERS, OXGYEN SATURATION OF 93% ON 1L O2 BY ME. MULTIPLE FAMILY MEMBERS, INCLUDING PTS SON FROM [place], AT BEDSIDE VISITING WITH PT. FAMILY STATES THEY ARE LEAVING SOON TO ALLOW PT TO REST. PT DENIES REQUSTS OR COMPLAINTS. PT DENIES PAIN AND NAUSEA. CALL LIGHT WITHIN REACH. BED RAILS UP. PT ENCROUAGED TO CALL WITH NEEDS.
--- NOTE | 2023-05-19 15:33 | NUR ---
PT HERE FOR GI BLEED. PT UP TO CHAIR AND WITH PHYSICAL THERAPY WITH 1 PERSON ASSIST AND FWW THIS SHIFT. PT ABLE TO AMBULATE INTO MEI THIS SHIFT. PT APPEARS TO HAVE MORE ENERGY THIS SHIFT, SLEEPING LESS AND WILLING TO TRY MORE. PT DENIES PAIN AND NAUSEA THROUGHOUT SHIFT. PT REMAINS ON 2L O2 BY NC WITH SLEEP AND ACITVITY AND 1L O2 BY NC WHEN RESTING. PURE WICK IN [place] FOR INCONTINANCE, QUANITTY SUFFICIENT. MONITORING LABS. PT REPORTS SORENESS ON RIGHT FOOT, REDENED AREA SEEN, VOLTAREN CREAM ORDERED AND APPLIED. PT SKIN TONES CONTINUES TO BE PALE AND JAUNICE LIKE. BLOOD COUNTS STABLE SO FAR THIS SHIFT. NO ADDITOINAL BOWEL MOVEMENTS YET THIS SHIFT. PT ADVANCED TO 60G CARB DIET, TOLERATING WELL. PT USES CALL LIGHT AND MAKES NEEDS KNOWN. FAMILY AT BEDSIDE THROUGHOUT SHIFT. CASE MANAGEMENT WORKING ON PLACEMENT FOR PT.
--- NOTE | 2023-05-19 16:30 | NUR ---
HOURLY ROUNDING: PT REPORTS NEED TO USE THE RESTROOM. 1 PERSON ASSIST WITH FWW UP TO RESTROOM. PT VOIDS 100ML WITH OUT ISSUE. LISET CARE DONE. DEPENDS SOILED, LISET CARE DONE. FRESH DEPENDS IN PLACE, PURE WICK CHANGED. 1 PERSON ASSIST UP TO CHAIR FOR DINNER. WARM BLANKETS PROVIDED. CALL LIGHT WITHIN REACH. PT WEAND BACK TO 1L O2 BY NC AFTER ACTIVITY, TOELARTING WITH OXGYEN SATUATION ABOVE 92%. CALL LIGHT WITHIN REACH.
--- NOTE | 2023-05-19 17:35 | NUR ---
SCHEDULED INSULIN ADMINISTERED, HOURLY ROUNDING COMPLETE. PT DENIES NEEDS, CALL LIGHT IN REACH.
[2023-05-19 18:12] VITALS: BP 110/78
--- NOTE | 2023-05-19 18:21 | NUR ---
THIS RN TO ROOM TO CHECK ON PT. PT FINISHED WITH DINNER. PT DECLINES GETTING BACK TO BED AT THIS TIME. PT DENIES PAIN AND NAUSEA. PT REPORTS HER PURE WICK IS LEAKING. PT UP TO STAND. DEPENDS AND PURE WICK DRY. LISET CARE DONE AND DEPENDS CHANGED NON THE LESS. VITAL SIGNS STABLE. PT DENIES ADDITIOANL REQUESTS OR COMPLAINTS. ICE WATER REFILEED. CALL LIGHT WITHIN REACH. BED RAILS UP.
--- NOTE | 2023-05-19 19:08 | NUR ---
PT AWAKE AND ALERT, SITTING UP IN RECYLINER VISITING WITH SON, BEDSIDE REPORT RECEIVED FROM ESTEE PRADO, PT DENIES NEEDS AT THIS TIME, PLAN OF CARE DISCUSSED WITH PT, PT WOULD LIKE ENSURE WITH 2100 MEDS.
[2023-05-19 20:02] VITALS: BP 142/68
--- NOTE | 2023-05-19 20:05 | NUR ---
PT DESIRES TO GO BACK TO BED, 1 PA WITH FFW, PT TOLERATED TRANSFER WELL, VS AND I/O DONE, ASSESSMENT COMPLETED, PURE WICK IN PLACE AND DRAINING WELL YELLOW URINE, SIDE RAILS UP X 3, BED ALARM ON, OXYGEN REMAINS ON AT 2L/NC.
--- NOTE | 2023-05-19 21:00 | NUR ---
LAB IN FOR BLODD DRAWN AT THIS TIME, RESULTS REVIEWED PER MD, ORDERS FOR TYPE AND SCREEN FOR AM NOTED, H/H 7.6/23.2.
[2023-05-19 21:10] LABS: BASOPHILS 0.9 % (0-2); HEMOGLOBIN 7.6 g/dL (12.0-18.0); PLATELET COUNT 276 K/uL (140-440)
[2023-05-19 21:11] LABS: EOSINOPHILS 1.5 % (0-6); HEMATOCRIT 23.2 % (35.0-50.0); LYMPHOCYTES 14.2 % (24-44); MCH 29.5 (27-36); MCHC 32.9 g/dl (30-36); MCV 89.7 fl (81-99); MONOCYTES 16.2 % (0-12); NEUTROPHILS 67.2 % (39-80); RBC 2.59 M/ul (4.3-5.7); RDW 14.6 (10.5-15.0)
--- NOTE | 2023-05-19 21:30 | NUR ---
PT AWAKE AND ALERT, RT MEDS GIVEN WITH ENSURE PER REQUEST, ACCUCHECK PRIOR TO ENSURE WAS 163, 1U HUMILOG SQ GIVEN. PT RESTING, OXYGEN REMAINS IN PLACE AT 2L/NC, PT DENIES NEEDS AT THIS TIME.
--- NOTE | 2023-05-19 22:45 | NUR ---
PT APPEARS TO SLEEP, OXYGEN SATS 96% AND CONTINUES ON 2L/NC.
--- NOTE | 2023-05-19 22:54 | NUR ---
pt bed alarm had gone off, pt was turning onto side, offered a boost in bed with rn assist, pt comfortable at this time
--- NOTE | 2023-05-19 23:45 | NUR ---
RN CALLED TO ROOM,PT REPORTS FEELING WET, PURE WICK CHANGED AFTER PERICARE GIVEN, NEW CHUX AND ATTENDS PLACED ON PT, PT REPOSITIONED UP IN BED, WITHOUT FURTHER REQUESTS, RESTING .
--- NOTE | 2023-05-20 00:05 | NUR ---
PT APPEARS TO SLEEP, OXYGEN SATS 94%, PT WITHOUT SIGNS OF DISTRESS.
--- NOTE | 2023-05-20 01:35 | NUR ---
PT APPEARS TO SLEEP, RESP EVEN AND REG, OXYGEN SATS 94%.
--- NOTE | 2023-05-20 03:20 | NUR ---
PT APPEARS TO SLEEP, RESP EVEN AND REG, WITHOUT DISTRESS.
[2023-05-20 05:10] VITALS: BP 143/44
--- NOTE | 2023-05-20 05:10 | NUR ---
LAB IN FOR AM BLOOD DRAW, VS DONE AND STABLE, PT DENIES DISCOMFORT.
[2023-05-20 05:25] LABS: EOSINOPHILS 2.2 % (0-6); HEMOGLOBIN 7.7 g/dL (12.0-18.0)
[2023-05-20 05:27] LABS: BASOPHILS 1.1 % (0-2); MCH 29.6 (27-36); MCHC 33.5 g/dl (30-36); MCV 88.5 fl (81-99); NEUTROPHILS 66.7 % (39-80); PLATELET COUNT 284 K/uL (140-440); RDW 14.4 (10.5-15.0)
--- NOTE | 2023-05-20 05:45 | NUR ---
PT PURE WICK, ATTENDS AND CHUX CHANGED AFTER PERICARE GIVEN, PT RESTING, NO BMS THIS SHIFT.
[2023-05-20 06:48] LABS: ABO A; RH POSITIVE
[2023-05-20 06:49] LABS: ANTIBODY SCREEN NEGATIVE
--- NOTE | 2023-05-20 07:31 | NUR ---
REPORT RECIEVED FROM OJHAN SHER. THIS JOHAN GOYAL ASSUMING CARE OF PT WITH ASSISTANCE FROM THIS RN . PT RESTING ON LEFT SIDE WITH EYES CLOSED. RESPIRATIONS EVEN AND UNLABORED. OXGYEN SATURATIONS 94%ON 2L O2 BY NC. BED RAILS UP. CALL LIGHT WITHIN REACH. PT ALLOWED TO REST.
--- NOTE | 2023-05-20 07:35 | NUR ---
recieved report from nightshift nurse. pt is currently resting on her leftside with head at head of the bed. pt currently on 2liters of oxygen with a o2 stat of 94%. pt is resting no cares needed at this time. call light within reach.
--- NOTE | 2023-05-20 08:30 | NUR ---
PT IS CURRENTLY SITTING UP IN CHAIR BRUSHING HER TEETH. WAS ON ROOM AIR BETWEEN 90 AND 94%. HEAVY RAIL TRAIN OPERATOR STATED THAT PT HAD A LARGE FORMED BROWN STOOL WITH SOME RED WHEN WIPED. PT IS NOW EATING AND IS CURRENTLY USING OXYGEN AT 1 LITER O2 STAT IS AT 91 %. VOLTAREN CREAM WAS APPLIED ON HER RIGHT ANKLE. PT STATES HER PAIN IN THAT REDDENED AREA IS 2. NO OTHER CARES AT THIS TIME. CALL LIGHT WITHIN REACH.
--- NOTE | 2023-05-20 10:07 | NUR ---
pt was with physical therapy and doing excercises. I ASSISTED PHYSICAL THERAPY WITH WALK IN MEI BY PUSHING WHEELCHAIR BEHIND PT. PT WAS ON 3L THEN DROPPED TO 2 THEN 1 AND HELD A O2 STAT OF 94% WHILE WALKING. I WILL TAKE PT OFF OXYGEN ONCE SHE IS RESTING TO SEE WHERE HER LEVELS ARE AT. NO OTHER CARES NEEDED AT THIS TIME. CALL LIGHT WITHIN REACH
[2023-05-20 10:20] VITALS: BP 135/44
--- NOTE | 2023-05-20 10:33 | NUR ---
THIS RN TO ROOM WITH DR. CROCKER FOR ROUNDS. DR CROCKER UPDATED ON PT STAUTS, ASSESMENT AND BOWEL MOVEMENT THIS MORNING. PT AND FAMILY UPDATED ON PLAN OF CARE. PT AND FAMILY STATE ALL THEIR QUESTIONS HAVE BEEN ANSWERED. VERBAL ORDER GIVEN FOR X-RAY OF RIGHT FOOT. ORDERS ENTERED, REPEAT BACK PERFORMED. X-RAY CALLED AND TO BEDSIDE. PT REMAINS ON 1L O2 BY ID WITH OXGYEN SATURATIONS OF 95%. PT DENIES ADDITIONAL REQUESTS OR COMPLAINTS. CALL LIGHT WITHIN REACH. BED RAILS UP. FAMILY AT BEDSIDE.
--- NOTE | 2023-05-20 11:06 | NUR ---
pt is currently sitting up in chair drinking water. pt is currently at 92% on room air. no other cares needed at this time. call light within reach
--- NOTE | 2023-05-20 11:16 | NUR ---
LAB ORDERS ENTERED PER DR CROCKER'S REQUEST. REPEAT BACK PERFORMED. LAB NOTIFIED
--- NOTE | 2023-05-20 12:00 | NUR ---
pt is currently sitting and waiting on lunch. no other care is needed at this time. call light within reach
--- NOTE | 2023-05-20 13:02 | NUR ---
pt wanted out of chair so i assisted her back to bed. i took her off the nasal cannula that was put on while she at. her current o2 stats are at 92% on room air. patient is with her family and resting. refilled her water and gave her ensure. no other care is needed at this time. call light within reach
[2023-05-20 13:30] VITALS: BP 130/35
--- NOTE | 2023-05-20 13:31 | NUR ---
pt o2 stats fell below 84 and was holding so i put her back on 1 liter nasal cannula and her o2 stat went up to 91%
--- NOTE | 2023-05-20 13:51 | NUR ---
PT BP DIASTOLIC WAS 28. SECOND TIME DIASTOLIC WAS 35 BOTH WERE MONITOR. I TOOK A MANUAL BP AND IT WAS 125/40. PT IS RESTING IN BED. I WILL CHECK ON HER BP AGAIN SHORTLY. CALL LIGHT WITHIN REACH
--- NOTE | 2023-05-20 14:00 | NUR ---
THIS RN TO ROOM TO CHECK ON PT. PT RESTING ON RIGHT SIDE WITH EYES CLOSED, RESPIRATIONS EVEN AND UNLABORED, OXGYEN SATUARTION 88% ON 1L O2 BY NC. OXYGEN INCREASED TO 2L O2 BY NC WITH OXYGEN SATURATIONS CLIMBING TO 92%. PT ALLOWED TO REST. CALL LIGHT WITHIN REACH. BED RAILS UP.
--- NOTE | 2023-05-20 16:29 | NUR ---
PT REQUESTED TO USE THE BATHROOM AND HAD A FIRM BOWEL MOVEMENT. NO OTHER CARES NEEDED AT THIS TIME CALL LIGHT WITHIN REACH
--- NOTE | 2023-05-20 17:48 | NUR ---
PT HERE FOR GI BLEED. PT UP TO CHAIR AND WITH PHYSICAL THERAPY WITH 1 PERSON ASSIST AND FWW THIS SHIFT. PT ABLE TO AMBULATE INTO MEI THIS SHIFT. PT APPEARS TO HAVE MORE ENERGY . WAS ABLE TO WALK UP AND DOWN MEI WITHOUT SITTING. DID STOP 3 TIMES FOR REST BUT DID IT STANDING UP. PT DENIES PAIN AND NAUSEA THROUGHOUT SHIFT. PT WAS ON RM AT 94 BUT THEN LATER DURING THE DAY HER STATS DROPPED DOWN TO LOW 80S SO SHE IS BACK ON 2L O2 NC WHETHER ACTIVITY OR SLEEP. PURE WICK IN PLACE FOR INCONTINANCE, QUANITTY SUFFICIENT. MONITORING LABS. PT REPORTS SORENESS ON RIGHT FOOT, REDENED AREA SEEN, VOLTAREN CREAM APPLIED. PT SKIN TONES CONTINUES TO BE PALE AND JAUNICE LIKE. BLOOD COUNTS STABLE SO FAR THIS SHIFT BUT HEMOGLOBIN IS LOW AT 7.7 2 BOWEL MOVEMENTS THIS SHIFT. BOTH FIRM AND BROWN BUT UPON WIPING THERE WAS SOME BLOOD SPOTS THIS SHIFT.TOLERATING DIET WELL. PT USES CALL LIGHT AND MAKES NEEDS KNOWN. FAMILY AT BEDSIDE THROUGHOUT SHIFT
[2023-05-20 18:08] LABS: BASOPHILS 0.9 % (0-2); HEMOGLOBIN 8.1 g/dL (12.0-18.0)
[2023-05-20 18:09] LABS: EOSINOPHILS 1.1 % (0-6); HEMATOCRIT 24.7 % (35.0-50.0); LYMPHOCYTES 13.8 % (24-44); MCH 29.5 (27-36); MCHC 32.9 g/dl (30-36); MCV 89.7 fl (81-99); MONOCYTES 15.6 % (0-12); NEUTROPHILS 68.6 % (39-80); PLATELET COUNT 324 K/uL (140-440); RBC 2.76 M/ul (4.3-5.7); RDW 14.7 (10.5-15.0)
[2023-05-20 18:13] VITALS: BP 148/48
--- NOTE | 2023-05-20 18:30 | NUR ---
PT IS WITH FAMILY SITTING UP IN CHAIR. SHE REQUESTED TO STAY IN HER CHAIR FOR A WHILE. NO OTHER CARES NEEDED AT THIS TIME. CALL LIGHT WITHIN REACH
--- NOTE | 2023-05-20 19:04 | NUR ---
BEDSIDE REPORT RECEIVED FROM JAY JAY PRADO, PT UP IN RECYLINER VISITNG WITH SON, WITHOUT REQUESTS AT THIS TIME,.
--- NOTE | 2023-05-20 19:50 | NUR ---
PT REQUESTING ENSURE AND FRESH WATER, GIVEN PER REQUEST, PT REMAINS UP IN RECYLINER, OXYGEN IN PLACE.
--- NOTE | 2023-05-20 20:50 | NUR ---
PT SITTING IN RECYLINER, VS DONE, ACCUCHECK DONE PER SINTA CHARGE RN, REPORTED TO BE 305, PT UP TO BSC, USES FFW WITH 1PA, GAIT SLOW, PT WEAK BUT TOLERATES TRANSFER, NURSE AT BEDSIDE.
[2023-05-20 20:55] VITALS: BP 144/50
--- NOTE | 2023-05-20 21:20 | NUR ---
PT ASSISTED BACK TO BED, AFTER USING BSC, PASSED ONLY FLATUS, NO STOOL AT THIS TIME, BACK TO BED, PURE WICK REPLACED AFTER PERICARE GIVEN BY BYRON SHELLEY, ASSESSMENT COMPLETED, OXYGEN REMAINS ON AT 2 L/NC, PT DENIES FURTHER REQUESTS, SIDE RAILS UP X 3.
--- NOTE | 2023-05-20 21:25 | NUR ---
RT MEDS GIVEN AND 7 UNITS HUMOLOG SQ GIVEN PER ORDER.
--- NOTE | 2023-05-20 23:25 | NUR ---
PT APPEARS TO SLEEP, RESP EVEN AND REG, OXYGEN SATS 92%.
--- NOTE | 2023-05-21 01:00 | NUR ---
PT APPEARS TO SLEEP, RESP EVEN AND REG, OXYGEN SATS 95%.
--- NOTE | 2023-05-21 02:40 | NUR ---
PT LAYING ON RIGHT SIDE, APPEARS TO SLEEP, RESP EVEN AND REG, OXYGEN SATS 90%
--- NOTE | 2023-05-21 03:40 | NUR ---
PT CONTINUES TO SLEEP, RESP EVEN AND REG.
[2023-05-21 05:10] VITALS: BP 147/58
--- NOTE | 2023-05-21 05:10 | NUR ---
PT RESTING IN BED. VITALS AND IS AND IS COMPLETE. PUREWICK CHANGED. CANISTER EMPTIED. ICE WATER PROVIDED. WARM WASH RAG PROVIDED. NO FURTHER NEEDS. CALL LIGHT WITHIN REACH.
[2023-05-21 05:24] LABS: HEMATOCRIT 22.9 % (35.0-50.0); HEMOGLOBIN 7.7 g/dL (12.0-18.0); LYMPHOCYTES 14.5 % (24-44); MCH 29.6 (27-36); MCHC 33.5 g/dl (30-36); MCV 88.4 fl (81-99); MONOCYTES 15.2 % (0-12); NEUTROPHILS 67.3 % (39-80); PLATELET COUNT 332 K/uL (140-440); RBC 2.59 M/ul (4.3-5.7); RDW 14.4 (10.5-15.0)
--- NOTE | 2023-05-21 05:30 | NUR ---
PT AWAKE AND ALERT, ASSESSMENT COMPLETED AND VS REVIEWED, PT REPOSITIONED UP IN BED, PT WITHOUT REQUESTS AT THIS TIME.
--- NOTE | 2023-05-21 07:00 | NUR ---
RECIEVED REPORT FROM NIGHTSHIFT NURSE. PT IS CURRENTLY RESTING. NO CARES NEEDED AT THIS TIME. CALL LIGHT WITHIN REACH
--- NOTE | 2023-05-21 07:30 | NUR ---
PT REQUESTED TO GO TO THE RESTROOM. SHE HAD A LARGE BOWEL MOVEMENT THAT WAS FORMED AND BROWN. SOME SPOTTING OF BLOOD UPON WIPING. NO SIGNS OF PAIN. PT BRUSHED HER TEETH. SHE IS CURRENTLY SITTING UP IN HER CHAIREATING BREAKFAST. NO OTHER CARES NEEDED AT THIS TIME CALL LIGHT WITHIN REACH
--- NOTE | 2023-05-21 08:00 | NUR ---
NURSE GOT PATIENT OUT OF BED AND WALKED HER TO THE BATHROOM. WHEN SHE WAS FINISHED NURSE WALKED PATIENT TO HER CHAIR. THEN WE GOT HER SET UP TO BRUSH HER TEETH AND WASH HER FACE. THAN NURSE DID HER BLOOD SUGUR CHECK BEFORE BREAKFAST CAME. PATIENT SETS UP FOR ALL HER MEALS. CHANGED BED LINENS.
--- NOTE | 2023-05-21 09:11 | NUR ---
UPDATED CHART NOTES FAXED TO [facility] AND MAIRA LEWIS FOR PLACEMENT.
--- NOTE | 2023-05-21 09:31 | NUR ---
PT IS WORKING WITH PHYSICAL THERAPY WALKING UP AND DOWN THE MEI.
--- NOTE | 2023-05-21 10:11 | NUR ---
PT'S SPIRITS SEEMED TO BE LOWER TODAY DESPITE GETTING UP AND WALKING WITH PT. HAD DIFFICULTY CARRYING ON CONVERSATION. LOOKING FORWARD TO MOVE TO SNF AND REGAINING OF STRENGTH. GAVE PRAYER QUILT AND PRAYED FOR AWARENESS OF DIVINE PRESENCE AND RETURN TO HEALTH.
--- NOTE | 2023-05-21 11:08 | NUR ---
PT IS CURRENTLY RECIEVING A SHOWER. GAVE THE GO AHEAD TO CHANGE HER DIET TO 60GRAM CARB DIET.
--- NOTE | 2023-05-21 12:15 | NUR ---
pt is currently eating lunch. had to put her on oxygen due to her pulse ox reading of 84. she is currently at 92% call light within reach
[2023-05-21 14:00] VITALS: BP 133/44
--- NOTE | 2023-05-21 15:43 | NUR ---
PT REQUESTED A DIFFERENT MEAL. I CALLED DIETARY AND ORDERED WHAT SHE PREFERED. APPETITE IS GOOD. PT REPORTS NO PAIN. O2 IS HOLDING AROUND 92-95% ON 1LITER OF O2. NO OTHER CARES NEEDED AT THIS TIME. CALL LIGHT WITHIN REACH
--- NOTE | 2023-05-21 16:37 | NUR ---
pt called to use restroom. pt had a medium formed brown stool. very tiny tint of red when wiped. much better than last bowel movement. pt is currently resting in bed no other cares needed at this time. call light within reach
[2023-05-21 17:42] VITALS: BP 130/46
--- NOTE | 2023-05-21 17:49 | NUR ---
pt is currently on 1 liter of o2 with stats holding around 92% pt is concerned about her placement. she is currently eating dinner. no other cares needed at this timecall light within reach
[2023-05-21 18:05] LABS: BASOPHILS 1.1 % (0-2); HEMATOCRIT 24.7 % (35.0-50.0); HEMOGLOBIN 8.2 g/dL (12.0-18.0); MCH 29.4 (27-36); MCV 89.2 fl (81-99); MONOCYTES 15.9 % (0-12); PLATELET COUNT 345 K/uL (140-440); RBC 2.77 M/ul (4.3-5.7); RDW 14.2 (10.5-15.0)
--- NOTE | 2023-05-21 19:04 | NUR ---
SHIFT REPORT RECEIVED FROM JAY JAY PRADO, PT RESTING, ALERT, WITHOUT REQUESTS AT THIS TIME.
--- NOTE | 2023-05-21 19:12 | NUR ---
pt had 3 bowel movements today. she was able to walk and loop the medsur floor with physical therapy. she is still a 1 person assist, continent of stool but incontinent of urine, simeon last placed at 1900. patient is currently in bed watching tv. case management states that she may have placement tomorrow at [facility] for rehab. pt is still using oxygen due to difficulty keeping o2 stats above 90. she is currently at 1liter and holding o2 stat of 92%.
[2023-05-21 21:29] VITALS: BP 135/57
--- NOTE | 2023-05-21 21:29 | NUR ---
VS AND I/O DONE PER SINTA FOOD SCIENCE TECHNICIAN, REVIEWED BY RN.
--- NOTE | 2023-05-21 22:05 | NUR ---
PT REMAINS AWAKE, DROWSY BUT ALERT AND ORIENTED, RT MEDS GIVEN, 7 U HUMOLOG SQ GIVEN FOR BS OF 297, ASSESSMENT COMPLETED, PT RESTING WITHOUT COMPLAINTS OR OTHER REQUESTS.
--- NOTE | 2023-05-22 00:25 | NUR ---
PT ASLEEP, RESP EVEN AND REG, WITHOUT SIGNS OF DISTRESS.
--- NOTE | 2023-05-22 01:30 | NUR ---
RN CALLED TO ROOM, PT REPORTS SHE FEELS WET AND NEEDS ATTENDS CHANGED, PERICARE GIVEN AND NEW PURE WIC PLACED, PT DENIES OTHER NEEDS AT THIS TIME, ATTEMPTING TO REST. OXYGEN IN PLACE, BED ALARM ON, SIDE RAILS UP X 2.
--- NOTE | 2023-05-22 02:10 | NUR ---
PT APPEARS TO SLEEP, RESP EVEN AND REG SATS 92%
--- NOTE | 2023-05-22 03:20 | NUR ---
PT CONTINUES TO SLEEP, SATS STABLE AT 92%
[2023-05-22 05:34] LABS: HEMOGLOBIN 7.9 g/dL (12.0-18.0)
[2023-05-22 05:35] LABS: BASOPHILS 1.5 % (0-2); EOSINOPHILS 2.7 % (0-6); HEMATOCRIT 23.5 % (35.0-50.0); LYMPHOCYTES 15.1 % (24-44); MCH 29.5 (27-36); MCHC 33.6 g/dl (30-36); MCV 87.9 fl (81-99); MONOCYTES 14.2 % (0-12); NEUTROPHILS 66.5 % (39-80); PLATELET COUNT 351 K/uL (140-440); RBC 2.68 M/ul (4.3-5.7); RDW 14.7 (10.5-15.0)
[2023-05-22 05:46] VITALS: BP 145/53
--- NOTE | 2023-05-22 05:46 | NUR ---
VS COMPLETED PER SINTA WASH HELPER, REVIEWED BY RN, LAB IN FOR AM BLOOD DRAW, PT WITHOUT COMPLAINTS.
--- NOTE | 2023-05-22 06:45 | NUR ---
RN CALLED TO ROOM, PT DESIRES TO GO TO BR FOR BM, 1 PA WITH FFW, PT HAD SOFT FORM BROWN STOOL WITH NO VISIBLE BLOOD NOTED, PT BACK TO BE, PURE WIC REPLACED AFTER PERICARE GIVEN, PT RESTING WITHOUT OTHER REQUESTS.
--- NOTE | 2023-05-22 07:57 | NUR ---
recieved shift report from night nurse. pt is currently laying in bed resting no cares needed at this time. call light within reach
--- NOTE | 2023-05-22 09:47 | NUR ---
SPOKE TO PATIENT AND DAUGHTER ABOUT THE DISCHARE PLAN. PATIENT DOES NOT WANT TO GO TO [facility]. PATIENT IS UPSET THAT [facility] IS THE ONLY [facility]ED THAT IS AVAILABLE. DAUGHTER GIVEN THE SNIF LIST FOR AVAILABLE SNFS IN [facility]. TOLD THE PATIENT AND DAUGHTER THAT THEY WOULD HAVE TO SIGN A LETTER FOR MEDICARE STATING THAT THE PATIENT DOES NOT WANT TO GO TO [address]. ENCOURAGED PATIENT TO GO TO [facility] AND TRY TO FIND ANOTHER ANOTHER SNF AFTER THE PATIENT IS AT [facility].
[2023-05-22 09:54] VITALS: BP 121/42
--- NOTE | 2023-05-22 09:58 | NUR ---
PT IS CURRENTLY SITTING UP AND EATING BREAKFAST. HER DAUGHTER IS IN THE ROOM AND IS WAITING FOR CASE MANAGMENT TO DISCUSS PLACEMENT. PT IS ON 1 LITER OF OXYGEN AND HOLDING STATS AT 93% NO OTHER CARES NEEDED AT THIS TIME. CALL LIGHT WITHIN REACH
--- NOTE | 2023-05-22 10:00 | NUR ---
PT AND DAUGHTER VERY UNHAPPY WITH SUGGESTED DISCHARGE TO [facility]. DAUGHTER ON PHONE WITH ALTERNATIVE FACILITIES. I EXERCISED MINISTRY OF PRESENCE PT TALKED OF [facility]. ATTEMPTED TO REASSURE PT BUT PRIMARILY LISTENED. PT CONSENTED TO PRAYER. PRAYED FOR PATIENCE AND PERSEVERENCE. INFORMED CASE MANAGEMENT OF PT CONCERNS.
--- NOTE | 2023-05-22 10:29 | NUR ---
PATIENT AGREED TO GO TH [facility] TODAY AT [address] [place] BOOK UPDATED AND TRANSPORTATION ARRANGED.
--- NOTE | 2023-05-22 11:19 | NUR ---
PT RECIEVED ORAL CARE AND FACE WASHED. NO OTHER CARES NEEDED AT THIS TIME. CALL LIGHT WITHIN REACH
--- NOTE | 2023-05-22 12:37 | NUR ---
PT IS CURRENTLY UP IN CHAIR EATING AFTER HER SESSION WITH PHYSICAL THERABLOOD SUGAR CHECK SHOWED 308 7 UNITS GIVEN. NEW PURWICK PLACED. NO THER CARES NEEDED AT THIS TIME KENNETH;L LIGHT WITHIN REACH
[2023-05-22 14:03] VITALS: BP 124/38
--- NOTE | 2023-05-22 16:15 | NUR ---
BUDDY CALLED FOR REPORT. I SPOKE WITH SAUL AND GAVE HER INFORMATION REQUESTED PER BUDDY SHEET AND PROTOCOL.
== END 2023-05-22 16:05 | DRG 377 ==
LOC: ED 09:48 → MS 14:19
PROVIDERS: Colon & Rectal Surgery; Family Medicine; ADMIT Family Medicine; ATTEND Internal Medicine
PROC: 30233N1 Transfusion of Nonautologous Red Blood Cells into Peripheral Vein, Percutaneous Approach (ICD-10-PCS; principal; 2023-05-12)
PROC: 30283B1 Transfusion of Nonautologous 4-Factor Prothrombin Complex Concentrate into Vein, Percutaneous Approach (ICD-10-PCS; 2023-05-12)
PROC: 0DJD8ZZ Inspection of Lower Intestinal Tract, Via Natural or Artificial Opening Endoscopic (ICD-10-PCS; 2023-05-13)
PROC: 0DB98ZX Excision of Duodenum, Via Natural or Artificial Opening Endoscopic, Diagnostic (ICD-10-PCS; 2023-05-13 09:38)
PROC: 30233N1 Transfusion of Nonautologous Red Blood Cells into Peripheral Vein, Percutaneous Approach (ICD-10-PCS; 2023-05-14)
PROC: 30233K1 Transfusion of Nonautologous Frozen Plasma into Peripheral Vein, Percutaneous Approach (ICD-10-PCS; 2023-05-15)
PROC: 30233N1 Transfusion of Nonautologous Red Blood Cells into Peripheral Vein, Percutaneous Approach (ICD-10-PCS; 2023-05-15)
PROC: 0T9B70Z Drainage of Bladder with Drainage Device, Via Natural or Artificial Opening (ICD-10-PCS; 2023-05-19)
PROC: 5A0935A Assistance with Respiratory Ventilation, Less than 24 Consecutive Hours, High Flow/Velocity Cannula (ICD-10-PCS; 2023-05-21)
DX: K62.5 Hemorrhage of anus and rectum (principal); J96.01 Acute respiratory failure with hypoxia; I50.32 Chronic diastolic (congestive) heart failure; K29.91 Gastroduodenitis, unspecified, with bleeding; K22.2 Esophageal obstruction; K57.30 Diverticulosis of large intestine without perforation or abscess without bleeding; Z20.822 Contact with and (suspected) exposure to COVID-19; K44.9 Diaphragmatic hernia without obstruction or gangrene; E78.5 Hyperlipidemia, unspecified; K64.8 Other hemorrhoids; I48.0 Paroxysmal atrial fibrillation; I11.0 Hypertensive heart disease with heart failure; E11.40 Type 2 diabetes mellitus with diabetic neuropathy, unspecified; D64.9 Anemia, unspecified; E83.42 Hypomagnesemia; M48.00 Spinal stenosis, site unspecified; M19.90 Unspecified osteoarthritis, unspecified site; H35.30 Unspecified macular degeneration; M79.671 Pain in right foot; F32.A Depression, unspecified; F41.9 Anxiety disorder, unspecified; Z79.01 Long term (current) use of anticoagulants; Z90.49 Acquired absence of other specified parts of digestive tract; Z90.710 Acquired absence of both cervix and uterus; Z88.2 Allergy status to sulfonamides; Z88.1 Allergy status to other antibiotic agents; Z88.8 Allergy status to other drugs, medicaments and biological substances; Z79.899 Other long term (current) drug therapy; Z79.84 Long term (current) use of oral hypoglycemic drugs; Z86.73 Personal history of transient ischemic attack (TIA), and cerebral infarction without residual deficits; Z98.49 Cataract extraction status, unspecified eye; Z98.890 Other specified postprocedural states
CPT/HCPCS: 36415; 73630; 74177; 74178; 80048; 80053; 83735; 84100; 85025; 85027; 85060; 85610; 85730; 86850; 86900; 86901; 86922; 87502; 88305; 94762; 97110; 97116; 97163; 97530; A9270; C9113; J0612; J0690; J1815; J2405; J2704; J3430; J3475; J7030; J7040; J7168; P9016; P9059; Q9967; U0002

== ENCOUNTER 2023-07-10 16:14 | Emergency (ER) | payer MEDICARE, OTHER ==
[~2023-07-10] VITALS: Ht 165.1 cm; Wt 75.3 kg
[2023-07-10] MEDS ORDERED: GLIPIZIDE5 MG PO (18:24)
[2023-07-10] MEDS ORDERED: IRON18 MG PO (18:25)
[2023-07-10] MEDS ORDERED: VENTOLIN HFA18 GM (18:25)
[2023-07-10] MEDS ORDERED: PROTONIX40 MG PO (18:25)
[2023-07-10 19:13] LABS: INFLUENZA B NAA NEGATIVE (NEGATIVE); RESPIRATORY SYNCYTIAL VIR NAA NEGATIVE (NEGATIVE)
[2023-07-10 22:05] VITALS: BP 153/64
== END 2023-07-10 21:42 | disposition home or self-care (01) ==
LOC: ED 16:14
PROVIDERS: Emergency Medicine
DX: J02.9 Acute pharyngitis, unspecified (principal); E11.9 Type 2 diabetes mellitus without complications; I10 Essential (primary) hypertension; E78.5 Hyperlipidemia, unspecified; Z20.822 Contact with and (suspected) exposure to COVID-19; Z79.51 Long term (current) use of inhaled steroids; Z79.899 Other long term (current) drug therapy; Z79.84 Long term (current) use of oral hypoglycemic drugs; Z88.1 Allergy status to other antibiotic agents; Z88.2 Allergy status to sulfonamides; Z91.09 Other allergy status, other than to drugs and biological substances
CPT/HCPCS: 71045; 87081; 87502; 87651; C9803; U0002

== ENCOUNTER 2023-07-13 19:14 | Emergency (ER) | payer OTHER, MEDICARE ==
[~2023-07-13] VITALS: Ht 165.1 cm; Wt 75.3 kg
[~2023-07-13 19:14] MED LIST changes: +GLIPIZIDE5 MG PO; +IRON18 MG PO; +PROTONIX40 MG PO; +VENTOLIN HFA18 GM
--- OUTSIDE RECORDS SUMMARY | 2023-07-13 19:16 | XMS ---
PreManage Notification: CARIE COLE Security Aqua Ammonia Operator Events No recent Security Events currently on file CRITERIA MET - [facility] - 2 Visits in 30 Days CARE PROVIDERS COLLIN BURROUGHS Nurse Practitioner: Family Current PHONE: [phone] [facility] Current PHONE: Unknown Maddy has no Care Guidelines for this patient. [place] VISIT COUNT (12 MO.) [address] [place] [address] TOTAL 4 NOTE: Visits indicate total known visits. ED/UCC VISIT TRACKING (12 MO.) 07/13/2023 19:14 [facility] [place] TYPE: Emergency COMPLAINT: - FALL 07/10/2023 16:15 [facility] [place] TYPE: Emergency COMPLAINT: - COUGH DIAGNOSES: - Acute pharyngitis, unspecified - Allergy status to other antibiotic agents - Allergy status to sulfonamides - Contact with and (suspected) exposure to COVID-19 - Essential (primary) hypertension - Hyperlipidemia, unspecified - USP (current) use of inhaled steroids - USP (current) use of oral hypoglycemic drugs - Other allergy status, other than to drugs and biological substances - Other jail (current) drug therapy - Type 2 diabetes mellitus without complications 05/12/2023 09:49 [facility] [place] TYPE: Emergency COMPLAINT: - RECTAL BLEEDING 03/30/2023 12:49 [facility] [place] TYPE: Emergency COMPLAINT: - LOW B/P, L LEG PAIN, SOB DIAGNOSES: - Allergy status to other antibiotic agents - Allergy status to other drugs, medicaments and biological substances - Allergy status to sulfonamides - Heart failure, unspecified - Hyperlipidemia, unspecified - Hypertensive heart disease with heart failure - USP (current) use of anticoagulants - Other buttermaker continuous churn (current) drug therapy - Other nonmedicinal substance allergy status - Radiculopathy, lumbar region - Shortness of breath - Type 2 diabetes mellitus without complications - Unilateral primary osteoarthritis, left hip INPATIENT VISIT TRACKING (12 MO.) 05/12/2023 14:19 [facility] [place] TYPE: Medical Surgical COMPLAINT: - LOWER GI BLEED DIAGNOSES: - Acquired absence of both cervix and uterus - Acquired absence of both cervix and uterus - Acquired absence of other specified parts of digestive tract - Acquired absence of other specified parts of digestive tract - Acute respiratory failure with hypoxia - Acute respiratory failure with hypoxia - Allergy status to other antibiotic agents - Allergy status to other antibiotic agents - Allergy status to other drugs, medicaments and biological substances - Allergy status to other drugs, medicaments and biological substances - Allergy status to sulfonamides - Allergy status to sulfonamides - Anemia, unspecified - Anemia, unspecified - Anxiety disorder, unspecified - Anxiety disorder, unspecified - Cataract extraction status, unspecified eye - Cataract extraction status, unspecified eye - Chronic diastolic (congestive) heart failure - Chronic diastolic (congestive) heart failure - Contact with and (suspected) exposure to COVID-19 - Contact with and (suspected) exposure to COVID-19 - Depression, unspecified - Depression, unspecified - Diaphragmatic hernia without obstruction or gangrene - Diaphragmatic hernia without obstruction or gangrene - Diverticulosis of large intestine without perforation or abscess without bleeding - Diverticulosis of large intestine without perforation or abscess without bleeding - Esophageal obstruction - Esophageal obstruction - Gastroduodenitis, unspecified, with bleeding - Gastroduodenitis, unspecified, with bleeding - Gastrointestinal hemorrhage, unspecified - Hemorrhage of anus and rectum - Hemorrhage of anus and rectum - Hyperlipidemia, unspecified - Hyperlipidemia, unspecified - Hypertensive heart disease with heart failure - Hypertensive heart disease with heart failure - Hypomagnesemia - Hypomagnesemia - USP (current) use of anticoagulants - USP (current) use of anticoagulants - terminal carman (current) use of oral hypoglycemic drugs - USP (current) use of oral hypoglycemic drugs - Other hemorrhoids - Other hemorrhoids - Other buttermaker continuous churn (current) drug therapy - Other buttermaker continuous churn (current) drug therapy - Other specified postprocedural states - Other specified postprocedural states - Pain in right foot - Pain in right foot - Paroxysmal atrial fibrillation - Paroxysmal atrial fibrillation - Personal history of transient ischemic attack (TIA), and cerebral infarction without residual deficits - Personal history of transient ischemic attack (TIA), and cerebral infarction without residual deficits - Spinal stenosis, site unspecified - Spinal stenosis, site unspecified - Type 2 diabetes mellitus with diabetic neuropathy, unspecified - Type 2 diabetes mellitus with diabetic neuropathy, unspecified - Unspecified macular degeneration - Unspecified macular degeneration - Unspecified osteoarthritis, unspecified site - Unspecified osteoarthritis, unspecified site [id number]
[2023-07-13 21:05] VITALS: BP 00/00
== END 2023-07-13 21:05 | disposition other institution, planned readmission (95) ==
LOC: ED 19:14
DX: Z04.3 Encounter for examination and observation following other accident (principal); Z53.21 Procedure and treatment not carried out due to patient leaving prior to being seen by health care provider
CPT/HCPCS: 73030

== ENCOUNTER 2024-04-11 16:48 | Emergency (ER) | payer MEDICARE, OTHER ==
[~2024-04-11] VITALS: Ht 167.6 cm; Wt 69.7 kg
[~2024-04-11 16:48] MED LIST changes: +CELEXA20 MG; -CELEXA40 MG PO; +CITALOPRAM HBR20 MG PO; +FEROSUL325 MG PO; -IRON18 MG PO; +JARDIANCE10 MG PO; +PANTOPRAZOLE SO40 MG PO
--- OUTSIDE RECORDS SUMMARY | 2024-04-11 16:55 | XMS ---
PreManage Notification: CARIE COLE Security Production Control Scheduler Events 1 event(s) in the past 18 months Most recent security events: Elopement at [facility] 07/13/2023 19:14 - Patient eloped with IV in place. - Patient eloped before treatment completed. - Patient with suicidal and/or homicidal ideations eloped. Details: Patient LWBS CRITERIA MET - Group Notification CARE PROVIDERS COLLIN BURROUGHS Nurse Practitioner: Family Current PHONE: [phone] [facility] Current PHONE: Unknown Maddy has no Care Guidelines for this patient. E.D. VISIT COUNT (12 MO.) [address] [place] [address]. TOTAL 6 NOTE: Visits indicate total known visits. ED/UCC VISIT TRACKING (12 MO.) 04/11/2024 16:49 [facility] [place] TYPE: Emergency COMPLAINT: - VOMITING/NAUSA 11/14/2023 16:51 [facility] [place] TYPE: Emergency COMPLAINT: - DIARRHEA, BLACK/BLOODY STOOL, BLOATED, ABD PAIN DIAGNOSES: - Allergy status to other antibiotic agents - Allergy status to sulfonamides - Essential (primary) hypertension - Hyperlipidemia, unspecified - termite control servicer (current) use of oral hypoglycemic drugs - Melena - Other terminal make up operator (current) drug therapy - Other nonmedicinal substance allergy status - Overactive bladder - Type 2 diabetes mellitus without complications 08/26/2023 12:37 [facility] [place] TYPE: Emergency COMPLAINT: - WEAKNESS 07/13/2023 19:14 [facility] [place] TYPE: Emergency COMPLAINT: - FALL DIAGNOSES: - Encounter for examination and observation following other accident - Procedure and treatment not carried out due to patient leaving prior to being seen by health care provider 07/10/2023 16:15 [facility] [place] TYPE: Emergency COMPLAINT: - COUGH DIAGNOSES: - Acute pharyngitis, unspecified - Allergy status to other antibiotic agents - Allergy status to sulfonamides - Contact with and (suspected) exposure to COVID-19 - Essential (primary) hypertension - Hyperlipidemia, unspecified - termite control servicer (current) use of inhaled steroids - long-term (current) use of oral hypoglycemic drugs - Other allergy status, other than to drugs and biological substances - Other terminal make up operator (current) drug therapy - Type 2 diabetes mellitus without complications 05/12/2023 09:49 [facility] [place] TYPE: Emergency COMPLAINT: - RECTAL BLEEDING INPATIENT VISIT TRACKING (12 MO.) 08/26/2023 12:38 [facility] [place] TYPE: Observation COMPLAINT: - AHRF, CHF DIAGNOSES: - Acute on chronic diastolic (congestive) heart failure - Contact with and (suspected) exposure to COVID-19 - Depression, unspecified - Do not resuscitate - Elevated white blood cell count, unspecified - Encounter for screening for COVID-19 - Hypertensive heart disease with heart failure - Type 2 diabetes mellitus without complications - Unspecified atrial fibrillation 05/12/2023 14:19 [facility] [place] TYPE: Medical [...] heart failure - Hypomagnesemia - Hypomagnesemia - termite control servicer (current) use of anticoagulants - long-term (current) use of anticoagulants - termite control servicer (current) use of oral hypoglycemic drugs - termite control servicer (current) use of oral hypoglycemic drugs - Other hemorrhoids - Other hemorrhoids - Other terminal make up operator (current) drug therapy - Other fdc (current) drug therapy - Other specified postprocedural [...] unspecified site - Unspecified osteoarthritis, unspecified site [id number]
[2024-04-11] MEDS ORDERED: SODIUM CHLORIDE 0.9% 1,000 ML IV ONE (17:30)
[2024-04-11] MEDS ORDERED: ondansetron HCL 4 MG/2 ML VIAL IV ONE (17:30)
[2024-04-11 18:16] LABS: BILIRUBIN, URINE NEGATIVE (negative); BLOOD/HGB, URINE NEGATIVE (Negative); KETONE, URINE NEGATIVE (Negative); LEUK ESTERASE, URINE NEGATIVE (negative); NITRITE, URINE NEGATIVE (negative); PH, URINE 5.5 (5-7)
[2024-04-11 18:17] LABS: HEMATOCRIT 47.1 % (35.0-50.0); HEMOGLOBIN 15.8 g/dL (12.0-18.0); MCHC 33.5 g/dl (30-36); MCV 89.7 fl (81-99); PLATELET COUNT 293 K/uL (140-440); RBC 5.25 M/ul (4.3-5.7); RDW 14.8 (10.5-15.0)
[2024-04-11 18:25] LABS: BACTERIA, URINE RARE /hpf (negative); CASTS, URINE HYALINE 2+ \\lpf; COLLECTION TYPE, URINE CLEAN CATCH; CRYSTALS, URINE NONE SEEN (0-1+); EPITHELIAL CELLS, URINE SQUAMOUS 3+ /lpf (0-1+); RED BLOOD CELLS, URINE 0-1 /hpf (0-5); REFLEX CULTURE, URINE No (No)
[2024-04-11 18:32] LABS: BANDS, MANUAL DIFF 9; BASOPHILS, MANUAL DIFF 3; EOSINOPHILS, MANUAL DIFF 1; LYMPHOCYTES, MANUAL DIFF 19; MONOCYTES, MANUAL DIFF 10; NEUTROPHILS, MANUAL DIFF 58
[2024-04-11 18:37] LABS: ALBUMIN 3.4 g/dL (3.4-5.0); ALBUMIN/GLOBULIN RATIO 0.97 (1.1-2.4); ANION GAP 14.6 (7-21); BILIRUBIN, TOTAL 0.9 ng/dL (0.2-1.0); BUN/CREATININE RATIO 17.93 (6.0-28.6); CALCIUM 8.8 mg/dL (8.5-10.1); CREATININE, SERUM 1.45 mg/dL (0.55-1.02); POTASSIUM 4.6 mmol/L (3.5-5.1); PROTEIN, TOTAL 6.9 g/dL (6.4-8.2)
[2024-04-11] MEDS ORDERED: ONDANSETRON 4 MG HOME.PACK SL ONE (20:00)
[2024-04-11] MEDS ORDERED: ONDANSETRON ODT8 MG PO (20:09)
[2024-04-11 20:41] VITALS: BP 153/95
--- NOTE | 2024-04-11 22:59 | EKG ---
[facility] [address] [place] [address] Signed Atrial flutter with variable AV block Low voltage QRS Cannot rule out Anterior infarct , age undetermined Abnormal ECG When compared with ECG of 26-AUG-2023 13:51, Atrial flutter has replaced Sinus rhythm Vent. rate has increased BY 61 BPM QRS voltage has decreased Nonspecific T wave abnormality now evident in Lateral leads Confirmed by Trina Crocker MD () on 04/11/2024 10:59:18 PM Electronically Signed By: TRINA CROCKER MD 04/11/24 2259 PATIENT NAME: CARIE COLE Electrocardiogram DATE OF : 33 PHYSICIAN: TRINA CROCKER MD REPORT #: [id number] REPORT IS CONFIDENTIAL AND NOT TO BE RELEASED WITHOUT AUTHORIZATION
== END 2024-04-11 20:45 | disposition home or self-care (01) ==
LOC: ED 16:48
PROVIDERS: Emergency Medicine
DX: R11.2 Nausea with vomiting, unspecified (principal); I10 Essential (primary) hypertension; E11.9 Type 2 diabetes mellitus without complications; Z91.09 Other allergy status, other than to drugs and biological substances; Z88.1 Allergy status to other antibiotic agents; Z88.2 Allergy status to sulfonamides; Z88.8 Allergy status to other drugs, medicaments and biological substances; Z79.899 Other long term (current) drug therapy
CPT/HCPCS: 36415; 51702; 74177; 80053; 81001; 83690; 84484; 85025; 93005; 93010; 99284-25; A9270; J2405; J7030; Q9967

== ENCOUNTER 2024-09-03 15:47 | Emergency (ER) | payer MEDICARE, OTHER ==
[~2024-09-03] VITALS: Ht 167.6 cm; Wt 69.8 kg
[~2024-09-03 15:47] MED LIST changes: +HYDROCODON-ACE1 EA10 PO; +ONDANSETRON ODT8 MG PO; +VALTREX1000 MG PO
--- OUTSIDE RECORDS SUMMARY | 2024-09-03 15:53 | XMS ---
PreManage Notification: CARIE COLE Security Room Service Waiter Events 1 event(s) in the past 18 months Most recent security events: Elopement at [facility] 07/13/2023 19:14 - Patient eloped with IV in place. - Patient eloped before treatment completed. - Patient with suicidal and/or homicidal ideations eloped. Details: Patient LWBS CRITERIA MET - Group Notification - [facility] - 2 Visits in 30 Days CARE PROVIDERS COLLIN BURROUGHS Nurse Practitioner: Family Current PHONE: [phone] [facility] Current PHONE: Unknown Maddy has no Care Guidelines for this patient. E.Mor. VISIT COUNT (12 MO.) [address] [facility] TOTAL 5 NOTE: Visits indicate total known visits. ED/UCC VISIT TRACKING (12 MO.) 09/03/2024 15:47 [facility] [place] TYPE: Emergency COMPLAINT: - A-FIB 08/17/2024 14:13 [facility] [place] TYPE: Emergency COMPLAINT: - RASH DIAGNOSES: - Allergy status to other antibiotic agents - Allergy status to sulfonamides - Essential (primary) hypertension - Hyperlipidemia, unspecified - intermediate project manager (current) use of oral hypoglycemic drugs - Other senior living (current) drug therapy - Other nonmedicinal substance allergy status - Rash and other nonspecific skin eruption - Type 2 diabetes mellitus without complications - Unspecified atrial fibrillation - Zoster without complications 08/15/2024 16:06 [facility] [place] TYPE: Emergency COMPLAINT: - ABNORMAL LABS DIAGNOSES: - Acute upper respiratory infection, unspecified - Allergy status to other antibiotic agents - Allergy status to sulfonamides - Cough, unspecified - Encounter for screening for COVID-19 - Essential (primary) hypertension - Other allergy status, other than to drugs and biological substances - Other senior living (current) drug therapy - Type 2 diabetes mellitus without complications - Unspecified urinary incontinence 04/11/2024 16:49 [facility] [place] TYPE: Emergency COMPLAINT: - VOMITING/NAUSA DIAGNOSES: - Allergy status to other antibiotic agents - Allergy status to other drugs, medicaments and biological substances - Allergy status to sulfonamides - Essential (primary) hypertension - Nausea with vomiting, unspecified - Other allergy status, other than to drugs and biological substances - Other senior living (current) drug therapy - Type 2 diabetes mellitus without complications 11/14/2023 16:51 [facility] [place] TYPE: Emergency COMPLAINT: - DIARRHEA, BLACK/BLOODY STOOL, BLOATED, ABD PAIN DIAGNOSES: - Allergy status to other antibiotic agents - Allergy status to sulfonamides - Essential (primary) hypertension - Hyperlipidemia, unspecified - FDC (current) use of oral hypoglycemic drugs - Melena - Other senior living (current) drug therapy - Other nonmedicinal substance allergy status - Overactive bladder - Type 2 diabetes mellitus without complications INPATIENT VISIT TRACKING (12 MO.) No inpatient visits to display in this time frame [id number]
[2024-09-03] MEDS ORDERED: TRAMADOL HCL 50 MG TAB PO ONE (17:15)
[2024-09-03 17:28] LABS: BASOPHILS 0.8 % (0-2); EOSINOPHILS 0.6 % (0-6); HEMATOCRIT 45.4 % (35.0-50.0); HEMOGLOBIN 15.4 g/dL (12.0-18.0); LYMPHOCYTES 20.1 % (24-44); MCH 31.4 (27-36); MCHC 33.9 g/dl (30-36); MCV 92.6 fl (81-99); MONOCYTES 12.1 % (0-12); NEUTROPHILS 66.4 % (39-80); PLATELET COUNT 293 K/uL (140-440); RDW 15.4 (10.5-15.0)
[2024-09-03 17:37] LABS: ANION GAP 13.5 (7-21); BUN/CREATININE RATIO 26.31 (6.0-28.6); CALCIUM 9.3 mg/dL (8.5-10.1); CREATININE, SERUM 1.33 mg/dL (0.55-1.02); POTASSIUM 3.5 mmol/L (3.5-5.1)
[2024-09-03 17:40] LABS: BILIRUBIN, URINE NEGATIVE (negative); BLOOD/HGB, URINE NEGATIVE (Negative); KETONE, URINE NEGATIVE (Negative); LEUK ESTERASE, URINE NEGATIVE (negative); NITRITE, URINE NEGATIVE (negative); PH, URINE 5.5 (5-7)
[2024-09-03 17:46] LABS: BACTERIA, URINE NONE SEEN /hpf (negative); CASTS, URINE HYALINE 2+ \\lpf; COLLECTION TYPE, URINE CLEAN CATCH; CRYSTALS, URINE NONE SEEN (0-1+); EPITHELIAL CELLS, URINE NONE SEEN /lpf (0-1+); RED BLOOD CELLS, URINE 0-1 /hpf (0-5); REFLEX CULTURE, URINE No (No)
[2024-09-03] MEDS ORDERED: CAPSAICIN60 GM TOP (18:47)
[2024-09-03] MEDS ORDERED: OXYBUTYNIN CHL2.5 MG PO (18:47)
[2024-09-03] MEDS ORDERED: HYDROCODON-ACE1 EA10 PO (18:47)
[2024-09-03 19:05] VITALS: BP 133/74
== END 2024-09-03 19:05 | disposition home or self-care (01) ==
LOC: ED 15:47
PROVIDERS: Emergency Medicine
DX: N32.81 Overactive bladder (principal); B02.9 Zoster without complications; E11.9 Type 2 diabetes mellitus without complications; I10 Essential (primary) hypertension; E78.5 Hyperlipidemia, unspecified; G20.C Parkinsonism, unspecified; Z88.1 Allergy status to other antibiotic agents; Z88.2 Allergy status to sulfonamides; Z91.048 Other nonmedicinal substance allergy status
CPT/HCPCS: 36415; 51701; 80048; 81001; 85025; 99283-25

== ENCOUNTER 2024-10-20 07:50 | Inpatient (IN) | payer MEDICARE, OTHER ==
[~2024-10-20] VITALS: Ht 167.6 cm; Wt 71.7 kg
[2024-10-20] VITALS (8 sets, daily range): BP systolic 133–162; BP diastolic 69–87
[~2024-10-20 07:50] MED LIST changes: +ACARBOSE25 MG PO; +ACETAMINOPHEN325 M1 PO; +CAPSAICIN60 GM TOP; +CARDIZEM LA120 MG PO; +CEFAZOLIN SODIUM 2 GM/20 ML SYR IV SCH; +IBLOOD GLUCOSE TEST STRIP 1 EA TEST VI PRN; +IMODIUM A-D2 M2 PO; +LACTATED RINGER'S 1,000 ML IV SCH; +LIDOCAINE HCL 1% 5 ML SDV INJ ONE; +OXYBUTYNIN CHL2.5 MG PO; +PRESERVISION A1 EAC6 PO
[2024-10-20] MEDS ORDERED: TRAMADOL HCL 50 MG TAB PO PRN (08:00)
[2024-10-20] MEDS ORDERED: MORPHINE SULFATE 4 MG/ML VIAL IV PRN (08:00)
[2024-10-20] MEDS ORDERED: OXYCODONE/APAP 5/325 TAB PO PRN (08:00)
[2024-10-20] MEDS ORDERED: ondansetron HCL 4 MG/2 ML VIAL IV PRN ×2 (08:00→19:00)
[2024-10-20] MEDS ORDERED: MELATONIN5 M2 PO (08:02)
[2024-10-20] MEDS ORDERED: ondansetron HCL 4 MG/2 ML VIAL ONE (10:14)
[2024-10-20] MEDS ORDERED: fentaNYL citrate 100 MCG/2 ML VIAL ONE (10:14)
[2024-10-20] MEDS ORDERED: propofoL 200 MG/20 ML VIAL ONE ×2 (10:14→12:22)
[2024-10-20] MEDS ORDERED: LIDOCAINE 1% W/ EPI 1:200,000 30 ML SDV ONE (11:22)
[2024-10-20] MEDS ORDERED: ALBUTEROL/IPRATROPIUM 3 ML NEB INH ONE (17:15)
[2024-10-20] MEDS ORDERED: ACETAMINOPHEN 325 MG TAB PO PRN (19:00)
[2024-10-20 19:17] LABS: HEMATOCRIT 40.9 % (35.0-50.0); HEMOGLOBIN 14.1 g/dL (12.0-18.0); MCH 31.4 (27-36); MCHC 34.4 g/dl (30-36); MCV 91.3 fl (81-99); PLATELET COUNT 380 K/uL (140-440); RBC 4.48 M/ul (4.3-5.7); RDW 14.2 (10.5-15.0)
[2024-10-20 19:33] LABS: BANDS, MANUAL DIFF 2; BASOPHILS, MANUAL DIFF 1; EOSINOPHILS, MANUAL DIFF 7; LYMPHOCYTES, MANUAL DIFF 26; MONOCYTES, MANUAL DIFF 7; NEUTROPHILS, MANUAL DIFF 57
[2024-10-20 19:37] LABS: ALBUMIN 3.2 g/dL (3.4-5.0); ALBUMIN/GLOBULIN RATIO 0.89 (1.1-2.4); ANION GAP 10.8 (7-21); BILIRUBIN, TOTAL 1.2 ng/dL (0.2-1.0); BUN/CREATININE RATIO 17.6 (6.0-28.6); CALCIUM 8.8 mg/dL (8.5-10.1); CREATININE, SERUM 1.25 mg/dL (0.55-1.02); POTASSIUM 3.8 mmol/L (3.5-5.1); PROTEIN, TOTAL 6.8 g/dL (6.4-8.2)
[2024-10-20] MEDS ORDERED: FUROSEMIDE 40 MG/4 ML VIAL IV ONE (20:30)
[2024-10-20] MEDS ORDERED: DEXTROSE 5% 1,000 ML IV PRN (20:45)
[2024-10-20] MEDS ORDERED: DEXTROSE 50% 50 ML SYR IV PRN ×2 (20:45)
[2024-10-20] MEDS ORDERED: GLUCAGON,HUMAN RECOMBINANT 1 MG/ML VIAL SUB-Q PRN (20:45)
[2024-10-20] MEDS ORDERED: IBLOOD GLUCOSE TEST STRIP 1 EA TEST XX PRN (20:45)
[2024-10-20] MEDS ORDERED: INSULIN LISPRO 100 UNIT/ML ML SUB-Q SCH (21:00)
[2024-10-20] MEDS ORDERED: IBLOOD GLUCOSE TEST STRIP 1 EA TEST XX SCH (21:00)
[2024-10-20] MEDS ORDERED: METOPROLOL SUCCINATE 50 MG TABCR PO SCH (21:00)
[2024-10-21] VITALS (11 sets, daily range): BP systolic 114–169; BP diastolic 61–77
[2024-10-21 07:50] LABS: HEMOGLOBIN 14.2 g/dL (12.0-18.0); MCH 30.8 (27-36); MCHC 33.7 g/dl (30-36); MCV 91.4 fl (81-99); PLATELET COUNT 385 K/uL (140-440); RDW 14.6 (10.5-15.0)
[2024-10-21 08:11] LABS: ANION GAP 12.1 (7-21); BUN/CREATININE RATIO 16.4 (6.0-28.6); CREATININE, SERUM 1.28 mg/dL (0.55-1.02); MAGNESIUM 1.9 mg/dL (1.8-2.4); POTASSIUM 4.1 mmol/L (3.5-5.1)
[2024-10-21] MEDS ORDERED: PANTOPRAZOLE SODIUM 40 MG TABEC ONE (08:14)
[2024-10-21 08:23] LABS: EOSINOPHILS, MANUAL DIFF 1; LYMPHOCYTES, MANUAL DIFF 15; MONOCYTES, MANUAL DIFF 7; NEUTROPHILS, MANUAL DIFF 77
[2024-10-21] MEDS ORDERED: FUROSEMIDE 100 MG/10 ML VIAL IV ONE (08:30)
[2024-10-21] MEDS ORDERED: PANTOPRAZOLE SODIUM 40 MG TABEC PO SCH (09:00)
[2024-10-21] MEDS ORDERED: SPIRONOLACTONE 25 MG TAB PO SCH (09:00)
[2024-10-21] MEDS ORDERED: CEPHALEXIN MONOHYDRATE 500 MG CAP PO SCH (09:00)
[2024-10-21] MEDS ORDERED: dilTIAZem HCL 120 MG CAPCR PO SCH (09:00)
[2024-10-21] MEDS ORDERED: TYLENOL325 MG PO (11:56)
[2024-10-21] MEDS ORDERED: PHARMACY RENAL DOSE ADJUSTMENT 1 DOSE MISC PO SCH (12:00)
[2024-10-21] MEDS ORDERED: TOPROL XL100 MG PO (12:08)
[2024-10-21] MEDS ORDERED: MELATONIN 3 MG TAB PO SCH (21:00)
[2024-10-22] VITALS (9 sets, daily range): BP systolic 107–131; BP diastolic 56–70
[2024-10-22 07:45] LABS: HEMATOCRIT 41.6 % (35.0-50.0); HEMOGLOBIN 14.1 g/dL (12.0-18.0); MCH 31.2 (27-36); MCHC 33.9 g/dl (30-36); MCV 91.9 fl (81-99); PLATELET COUNT 371 K/uL (140-440); RBC 4.52 M/ul (4.3-5.7); RDW 14.6 (10.5-15.0)
[2024-10-22 07:47] LABS: ANION GAP 9.1 (7-21); BUN/CREATININE RATIO 18.64 (6.0-28.6); CALCIUM 8.8 mg/dL (8.5-10.1); CREATININE, SERUM 1.18 mg/dL (0.55-1.02); MAGNESIUM 1.9 mg/dL (1.8-2.4); POTASSIUM 4.1 mmol/L (3.5-5.1)
[2024-10-22 08:03] LABS: BASOPHILS, MANUAL DIFF 2; EOSINOPHILS, MANUAL DIFF 7; LYMPHOCYTES, MANUAL DIFF 12; MONOCYTES, MANUAL DIFF 5; NEUTROPHILS, MANUAL DIFF 74
[2024-10-22] MEDS ORDERED: SODIUM CHLORIDE 1 GM TAB PO ONE (08:30)
[2024-10-22] MEDS ORDERED: SODIUM CHLORIDE 0.9% 250 ML IV SCH ×2 (09:30→11:30)
[2024-10-22] MEDS ORDERED: SODIUM CHLORIDE 0.9% 1,000 ML IV ONE ×2 (09:30→11:30)
[2024-10-22] MEDS ORDERED: AZITHROMYCIN 250 MG TAB PO SCH (13:00)
[2024-10-22] MEDS ORDERED: CEFTRIAXONE/SODIUM CHLORIDE 1 GM/100 ML PIGGYBACK IV SCH (13:30)
[2024-10-22] MEDS ORDERED: CITALOPRAM HYDROBROMIDE 20 MG TAB PO SCH (21:00)
[2024-10-23] VITALS (10 sets, daily range): BP systolic 120–151; BP diastolic 51–81
[2024-10-23 05:21] LABS: BASOPHILS 1.4 % (0-2); EOSINOPHILS 7.2 % (0-6); HEMATOCRIT 38.8 % (35.0-50.0); HEMOGLOBIN 13.1 g/dL (12.0-18.0); LYMPHOCYTES 12.7 % (24-44); MCH 30.7 (27-36); MCHC 33.6 g/dl (30-36); MCV 91.3 fl (81-99); MONOCYTES 13.7 % (0-12); PLATELET COUNT 365 K/uL (140-440); RBC 4.26 M/ul (4.3-5.7); RDW 14.5 (10.5-15.0)
[2024-10-23 05:35] LABS: ANION GAP 10.4 (7-21); BUN/CREATININE RATIO 18.33 (6.0-28.6); CALCIUM 8.9 mg/dL (8.5-10.1); CREATININE, SERUM 1.2 mg/dL (0.55-1.02); MAGNESIUM 1.9 mg/dL (1.8-2.4); POTASSIUM 4.4 mmol/L (3.5-5.1)
[2024-10-23] MEDS ORDERED: ENOXAPARIN SODIUM 30 MG/0.3 ML SYR SUB-Q SCH (09:00)
[2024-10-23] MEDS ORDERED: ALBUTEROL SULFATE 0.083% 3 ML VIAL INH PRN (09:45)
[2024-10-23] MEDS ORDERED: CEFTRIAXONE/SODIUM CHLORIDE 1 GM/100 ML PIGGYBACK IV ONE (11:15)
[2024-10-23] MEDS ORDERED: ALBUTEROL/IPRATROPIUM 3 ML NEB INH SCH (12:00)
[2024-10-24] VITALS (10 sets, daily range): BP systolic 127–153; BP diastolic 73–80
[2024-10-24 05:18] LABS: HEMATOCRIT 39.8 % (35.0-50.0); HEMOGLOBIN 13.2 g/dL (12.0-18.0); MCH 30.5 (27-36); MCHC 33.2 g/dl (30-36); MCV 91.9 fl (81-99); PLATELET COUNT 380 K/uL (140-440); RBC 4.33 M/ul (4.3-5.7); RDW 14.5 (10.5-15.0)
[2024-10-24 05:29] LABS: ANION GAP 12.8 (7-21); BUN/CREATININE RATIO 13.67 (6.0-28.6); CALCIUM 9.1 mg/dL (8.5-10.1); CREATININE, SERUM 1.17 mg/dL (0.55-1.02); POTASSIUM 4.8 mmol/L (3.5-5.1)
[2024-10-24 05:34] LABS: BANDS, MANUAL DIFF 1; BASOPHILS, MANUAL DIFF 1; LYMPHOCYTES, MANUAL DIFF 16; MONOCYTES, MANUAL DIFF 5; NEUTROPHILS, MANUAL DIFF 77
[2024-10-24] MEDS ORDERED: CEFTRIAXONE/SODIUM CHLORIDE 2 GM/100 ML PIGGYBACK IV SCH (09:00)
[2024-10-24] MEDS ORDERED: predniSONE 20 MG TAB PO SCH (10:45)
[2024-10-25] VITALS (11 sets, daily range): BP systolic 136–165; BP diastolic 64–94
[2024-10-25 05:33] LABS: BASOPHILS 0.4 % (0-2); EOSINOPHILS 0.1 % (0-6); HEMATOCRIT 36.8 % (35.0-50.0); HEMOGLOBIN 12.5 g/dL (12.0-18.0); LYMPHOCYTES 12.1 % (24-44); MCH 30.9 (27-36); MONOCYTES 9.8 % (0-12); NEUTROPHILS 77.6 % (39-80); PLATELET COUNT 373 K/uL (140-440); RBC 4.05 M/ul (4.3-5.7); RDW 14.3 (10.5-15.0)
[2024-10-25 05:57] LABS: ANION GAP 10.6 (7-21); BUN/CREATININE RATIO 15.45 (6.0-28.6); CALCIUM 8.8 mg/dL (8.5-10.1); CREATININE, SERUM 1.1 mg/dL (0.55-1.02); POTASSIUM 4.6 mmol/L (3.5-5.1)
[2024-10-25] MEDS ORDERED: ENOXAPARIN SODIUM 40 MG/0.4 ML SYR SUB-Q SCH (09:00)
[2024-10-25] MEDS ORDERED: INSULIN GLARGINE-YFGN 100 UNIT/ML ML SUB-Q SCH (21:00)
[2024-10-26] VITALS (9 sets, daily range): BP systolic 133–171; BP diastolic 69–87
[2024-10-26 05:30] LABS: BASOPHILS 0.5 % (0-2); EOSINOPHILS 0.1 % (0-6); HEMATOCRIT 36.7 % (35.0-50.0); HEMOGLOBIN 12.5 g/dL (12.0-18.0); LYMPHOCYTES 15.6 % (24-44); MCH 30.9 (27-36); MCHC 34.1 g/dl (30-36); MCV 90.4 fl (81-99); MONOCYTES 9.2 % (0-12); NEUTROPHILS 74.6 % (39-80); PLATELET COUNT 431 K/uL (140-440); RBC 4.06 M/ul (4.3-5.7); RDW 14.3 (10.5-15.0)
[2024-10-26 05:45] LABS: ANION GAP 11.5 (7-21); BUN/CREATININE RATIO 20.56 (6.0-28.6); CREATININE, SERUM 1.07 mg/dL (0.55-1.02); POTASSIUM 4.5 mmol/L (3.5-5.1)
[2024-10-27 05:09] VITALS: BP 151/80
[2024-10-27 05:13] VITALS: BP 151/80
[2024-10-27 05:28] LABS: BASOPHILS 0.7 % (0-2); EOSINOPHILS 0.4 % (0-6); HEMATOCRIT 38.7 % (35.0-50.0); LYMPHOCYTES 19.3 % (24-44); MCH 30.7 (27-36); MCHC 33.6 g/dl (30-36); MCV 91.4 fl (81-99); MONOCYTES 8.3 % (0-12); NEUTROPHILS 71.3 % (39-80); PLATELET COUNT 433 K/uL (140-440); RBC 4.23 M/ul (4.3-5.7); RDW 14.3 (10.5-15.0)
[2024-10-27 05:43] LABS: ANION GAP 10.7 (7-21); BUN/CREATININE RATIO 21.62 (6.0-28.6); CALCIUM 9.1 mg/dL (8.5-10.1); CREATININE, SERUM 1.11 mg/dL (0.55-1.02); POTASSIUM 4.7 mmol/L (3.5-5.1)
[2024-10-27 10:11] VITALS: BP 155/93
[2024-10-27 10:12] VITALS: BP 155/93
[2024-10-27] MEDS ORDERED: CEFDINIR300 MG PO (11:21)
[2024-10-27 14:02] VITALS: BP 134/75
== END 2024-10-27 14:40 | disposition home or self-care (01) | DRG 981 ==
LOC: DS 07:50 → MS 07:50 → DS 08:50 → MS 18:00 → DS 18:58 → MS 18:59
PROVIDERS: Family Medicine; Urology; ADMIT Student in an Organized Health Care Education/Training Program; ATTEND Student in an Organized Health Care Education/Training Program
PROC: 01HY3MZ Insertion of Neurostimulator Lead into Peripheral Nerve, Percutaneous Approach (ICD-10-PCS; 2024-10-20)
PROC: 0JH80BZ Insertion of Single Array Stimulator Generator into Abdomen Subcutaneous Tissue and Fascia, Open Approach (ICD-10-PCS; 2024-10-20)
PROC: 0JPT0MZ Removal of Stimulator Generator from Trunk Subcutaneous Tissue and Fascia, Open Approach (ICD-10-PCS; 2024-10-20)
PROC: 01PY3MZ Removal of Neurostimulator Lead from Peripheral Nerve, Percutaneous Approach (ICD-10-PCS; principal; 2024-10-20 08:50)
DX: J96.01 Acute respiratory failure with hypoxia (principal); I50.33 Acute on chronic diastolic (congestive) heart failure; J18.9 Pneumonia, unspecified organism; E87.1 Hypo-osmolality and hyponatremia; I11.0 Hypertensive heart disease with heart failure; I48.0 Paroxysmal atrial fibrillation; E11.9 Type 2 diabetes mellitus without complications; Z66 Do not resuscitate; I27.20 Pulmonary hypertension, unspecified; G20.C Parkinsonism, unspecified; E78.5 Hyperlipidemia, unspecified; R32 Unspecified urinary incontinence; N32.81 Overactive bladder; Z79.84 Long term (current) use of oral hypoglycemic drugs; Z86.73 Personal history of transient ischemic attack (TIA), and cerebral infarction without residual deficits; Z88.8 Allergy status to other drugs, medicaments and biological substances; Z88.2 Allergy status to sulfonamides; Z79.899 Other long term (current) drug therapy
CPT/HCPCS: 00300; 36415; 51798; 71045; 71260; 80048; 80053; 83735; 83880; 85025; 85379; 94640; 94667; 94668; 94760; 94761; 94762; 96375; 96376; 97116; 97161; 97165; 97530; 97535; A9270; C1767; C1778; C1787; C1897; G0378; J0690; J0696; J1650; J1815; J1940; J2405; J2704; J3010; J7040; J7121; J7512; Q9967

== ENCOUNTER 2024-10-31 20:02 | Emergency (ER) | payer MEDICARE, OTHER ==
[~2024-10-31] VITALS: Ht 167.6 cm; Wt 75.3 kg
[~2024-10-31 20:02] MED LIST changes: -CEFAZOLIN SODIUM 2 GM/20 ML SYR IV SCH; +CEFDINIR300 MG PO; -FUROSEMIDE20 MG PO; -IBLOOD GLUCOSE TEST STRIP 1 EA TEST VI PRN; -LACTATED RINGER'S 1,000 ML IV SCH; -LIDOCAINE HCL 1% 5 ML SDV INJ ONE; +MELATONIN5 M2 PO; +TOPROL XL100 MG PO; +TYLENOL325 MG PO
--- OUTSIDE RECORDS SUMMARY | 2024-10-31 20:04 | XMS ---
PreManage Notification: CARIE COLE Security [place] Events 1 event(s) in the past 18 months Most recent security events: Elopement at [facility] 07/13/2023 19:14 - Patient eloped with IV in place. - Patient eloped before treatment completed. - Patient with suicidal and/or homicidal ideations eloped. Details: Patient LWBS CRITERIA MET - Group Notification CARE PROVIDERS COLLIN BURROUGHS Nurse Practitioner: Family Current PHONE: [phone] [facility] Current PHONE: Unknown Maddy has no Care Guidelines for this patient. E.D. VISIT COUNT (12 MO.) [address] [place] [address]. TOTAL 6 NOTE: Visits indicate total known visits. ED/UCC VISIT TRACKING (12 MO.) 10/31/2024 20:02 [facility] TYPE: Emergency COMPLAINT: - STOKE 09/03/2024 15:47 [facility] [place] TYPE: Emergency COMPLAINT: - A-FIB DIAGNOSES: - Allergy status to other antibiotic agents - Allergy status to sulfonamides - Essential (primary) hypertension - Hyperlipidemia, unspecified - Other nonmedicinal substance allergy status - Overactive bladder - Parkinsonism, unspecified - Type 2 diabetes mellitus without complications - Zoster without complications 08/17/2024 14:13 [facility] [place] TYPE: Emergency COMPLAINT: - RASH DIAGNOSES: - Allergy status to other antibiotic agents - Allergy status to sulfonamides - Essential (primary) hypertension - Hyperlipidemia, unspecified - terminal manager (current) use of oral hypoglycemic drugs - Other intermediate (current) drug therapy - Other nonmedicinal substance [...] to drugs and biological substances - Other intermediate (current) drug therapy - Type 2 diabetes [...] to drugs and biological substances - Other watermaster (current) drug therapy - Type 2 diabetes mellitus without complications 11/14/2023 16:51 [facility] [place] TYPE: Emergency COMPLAINT: - DIARRHEA, BLACK/BLOODY STOOL, BLOATED, ABD PAIN DIAGNOSES: - Allergy status to other antibiotic agents - Allergy status to sulfonamides - Essential (primary) hypertension - Hyperlipidemia, unspecified - terminal manager (current) use of oral hypoglycemic drugs - Melena - Other intermediate (current) drug therapy - Other nonmedicinal substance allergy status - Overactive bladder - Type 2 diabetes mellitus without complications INPATIENT VISIT TRACKING (12 MO.) 10/22/2024 09:40 [facility] [place] TYPE: Medical Surgical COMPLAINT: - POSTOPERATIVE HYPOXIA DIAGNOSES: - Acute on chronic diastolic (congestive) heart failure - Acute on chronic diastolic (congestive) heart failure - Acute respiratory failure with hypoxia - Acute respiratory failure with hypoxia - Allergy status to other drugs, medicaments and biological substances - Allergy status to other drugs, medicaments and biological substances - Allergy status to sulfonamides - Allergy status to sulfonamides - Do not resuscitate - Hyperlipidemia, unspecified - Hypertensive heart disease with heart failure - Hypo-osmolality and hyponatremia - terminal manager (current) use of oral hypoglycemic drugs - Other intermediate (current) drug therapy - Overactive bladder - Overactive bladder - Parkinson's disease without dyskinesia, without mention of fluctuations - Parkinsonism, unspecified - Paroxysmal atrial fibrillation - Paroxysmal atrial fibrillation - Personal history of transient ischemic attack (TIA), and cerebral infarction without residual deficits - Pneumonia, unspecified organism - Pulmonary hypertension, unspecified - Type 2 diabetes mellitus without complications - Type 2 diabetes mellitus without complications - Unspecified urinary incontinence - Unspecified urinary incontinence [email or web address]
[2024-10-31] MEDS ORDERED: IBLOOD GLUCOSE TEST STRIP 1 EA TEST XX ONE (20:15)
[2024-10-31 20:27] LABS: BASOPHILS 0.9 % (0-2); EOSINOPHILS 2.4 % (0-6); HEMATOCRIT 42.2 % (35.0-50.0); HEMOGLOBIN 14.4 g/dL (12.0-18.0); MCH 31.1 (27-36); MCV 91.3 fl (81-99); MONOCYTES 9.7 % (0-12); PLATELET COUNT 485 K/uL (140-440); RBC 4.63 M/ul (4.3-5.7); RDW 15.2 (10.5-15.0)
[2024-10-31 20:35] LABS: INR 1.01 (0.80-1.30); PARTIAL THROMBOPLASTIN TIME 28.2 Sec (22.9-41.3); PROTIME 13.2 Sec (11.2-14.2)
[2024-10-31 20:46] LABS: ALBUMIN 3.3 g/dL (3.4-5.0); ALBUMIN/GLOBULIN RATIO 1.03 (1.1-2.4); ANION GAP 10.2 (7-21); BILIRUBIN, TOTAL 0.7 ng/dL (0.2-1.0); BUN/CREATININE RATIO 21.96 (6.0-28.6); CALCIUM 9.7 mg/dL (8.5-10.1); CREATININE, SERUM 1.32 mg/dL (0.55-1.02); POTASSIUM 4.2 mmol/L (3.5-5.1); PROTEIN, TOTAL 6.5 g/dL (6.4-8.2)
[2024-10-31 21:23] LABS: AMPHETAMINES, URINE NEGATIVE (NEGATIVE); BARBITURATES, URINE NEGATIVE (NEGATIVE); BENZODIAZEPINE, URINE NEGATIVE (NEGATIVE); BUPRENORPHINE, URINE NEGATIVE (NEGATIVE); CANNABINOID, URINE NEGATIVE (NEGATIVE); COCAINE, URINE NEGATIVE (NEGATIVE); ECSTASY, URINE NEGATIVE (NEGATIVE); FENTANYL, URINE NEGATIVE (NEGATIVE); METHADONE, URINE NEGATIVE (NEGATIVE); OPIATES, URINE NEGATIVE (NEGATIVE); OXYCODONE, URINE NEGATIVE (NEGATIVE); PHENCYCLIDINE, URINE NEGATIVE (NEGATIVE)
[2024-10-31] MEDS ORDERED: ASPIRIN325 MG PO (23:02)
[2024-10-31] MEDS ORDERED: ELIQUIS2.5 MG PO (23:06)
[2024-10-31] MEDS ORDERED: ENOXAPARIN SODIUM 120 MG/0.8 ML SYR SUB-Q ONE (23:15)
[2024-11-01 00:21] VITALS: BP 157/77
--- NOTE | 2024-11-01 13:39 | EKG ---
[facility] [address] [facility] [place] [address] Signed Atrial fibrillation Left axis deviation Septal infarct , age undetermined Abnormal ECG When compared with ECG of 15-OCT-2024 12:02, Atrial fibrillation has replaced Atrial flutter Nonspecific T wave abnormality now evident in Anterior leads Confirmed by Desiree Tony DO ([id number]) on 11/01/2024 1:39:35 PM Electronically Signed By: DESIREE TONY DO 11/01/24 1339 PATIENT NAME: CARIE COLE Electrocardiogram DATE OF : 33 PHYSICIAN: DESIREE TONY DO REPORT #: [id number] REPORT IS CONFIDENTIAL AND NOT TO BE RELEASED WITHOUT AUTHORIZATION
[2024-11-08] MEDS ORDERED: PREDNISONE20 MG PO (16:41)
[2024-11-08] MEDS ORDERED: VENTOLIN HFA18 GM INH (16:44)
[2024-11-10] MEDS ORDERED: NYSTOP60 GM TOP (11:27)
[2024-11-13] MEDS ORDERED: SOAANZ40 MG PO (11:42)
[2024-11-13] MEDS ORDERED: AZITHROMYCIN500 MG PO (11:43)
[2024-11-13] MEDS ORDERED: METRONIDAZOLE500 MG PO (11:43)
[2024-11-13] MEDS ORDERED: CEFUROXIME500 MG PO (11:44)
[2024-11-13] MEDS ORDERED: POTASSIUM CHLO10 MEQ PO (11:45)
[2024-11-17] MEDS ORDERED: VENTOLIN HFA18 GM INH (20:46)
[2024-11-17] MEDS ORDERED: SOAANZ40 MG PO (22:13)
[2024-11-19] MEDS ORDERED: FUROSEMIDE40 MG PO (14:57)
[2024-11-21] MEDS ORDERED: NEBULIZER UNIT XX (08:05)
[2024-11-21] MEDS ORDERED: ALBUTEROL2.5 MG/3 M INH (08:06)
== END 2024-11-01 00:27 | disposition home or self-care (01) ==
LOC: ED 20:02
PROVIDERS: Family Medicine
DX: I63.9 Cerebral infarction, unspecified (principal); G81.94 Hemiplegia, unspecified affecting left nondominant side; R29.810 Facial weakness; E11.9 Type 2 diabetes mellitus without complications; I10 Essential (primary) hypertension; E78.5 Hyperlipidemia, unspecified; I48.91 Unspecified atrial fibrillation; G20.C Parkinsonism, unspecified; Z88.1 Allergy status to other antibiotic agents; Z88.2 Allergy status to sulfonamides; Z88.8 Allergy status to other drugs, medicaments and biological substances; Z91.048 Other nonmedicinal substance allergy status; Z79.899 Other long term (current) drug therapy; Z79.84 Long term (current) use of oral hypoglycemic drugs
CPT/HCPCS: 36415; 70450; 70496; 70498; 71045; 80053; 80307; 83880; 84484; 85025; 85610; 85730; 93005; 93010; 93306; 96372; 99285-25; J1650; Q9967